=== PATIENT | female | born 1945 | race Caucasian/White ===

== ENCOUNTER → 2024-03-12 14:59 | Outpatient (REF) | payer OTHER, SELFPAY | LOC: RAD 14:59 | PROVIDERS: ATTENDING PHYSICIAN Surgery Vascular Surgery | DX: I65.23 Occlusion and stenosis of bilateral carotid arteries (principal) | CPT/HCPCS: 93880 ==

== ENCOUNTER 2024-08-18 13:51 | Inpatient (IN) | payer OTHER, SELFPAY ==
[2024-08-18] VITALS (9 sets, daily range): BP systolic 118–152; BP diastolic 44–114; BMI 20.2; BMI 19.8
[2024-08-18 11:52] LABS: % Basophils 0.3 % (0-2); % Eosinophils 3.7 % (0-6); % Immature Granulocytes 0.4 % (0-0.5); % Lymphocytes 7.4 % (20.5-51.1); % Monocytes 6.4 % (1.7-9.3); % Neutrophils 81.8 % (42.2-75.2); Absolute Eosinophils 0.3 10^3/uL (0-0.7); Absolute Lymphocytes 0.5 10^3/uL (1.2-3.4); Absolute Monocytes 0.5 10^3/uL (0.1-0.6); Absolute Neutrophils 5.8 10^3/uL (1.4-6.5); Hematocrit 35.5 % (37.0-47.0); Hemoglobin 11.5 g/dL (12.0-16.0); Mean Corp Hgb Conc. 32.4 g/dL (33.0-37.0); Mean Corpuscular Hgb 31.7 pg (27.0-31.0); Mean Corpuscular Volume 97.8 fL (81.0-99.0); Nucleated Red Blood Cells % 0 %; Red Blood Cell Count 3.63 10^6/uL (4.20-5.40); White Blood Cell Count 7.1 10^3/uL (4.8-10.8)
[2024-08-18 11:56] LABS: Lactic Acid 0.8 mmol/L (0.7-2.0)
[2024-08-18 12:00] LABS: ALT (SGPT) 20 U/L (0-35); AST (SGOT) 29 U/L (14-36); Albumin 3.6 g/dl (3.5-5.0); Alkaline Phosphatase 52 U/L (38-126); Blood Urea Nitrogen 24 mg/dl (7-17); Calcium 8.4 mg/dl (8.4-10.2); Carbon Dioxide 37 mmol/L (22-30); Chloride 95 mmol/L (98-107); Estimated Creatinine Clearance 49 ml/min; Glucose 112 mg/dl (70-99); Potassium 4.7 mmol/L (3.5-5.1); Sodium 137 mmol/L (135-145); Total Bilirubin 0.5 mg/dl (0.2-1.3); Total Protein 6.2 g/dl (6.3-8.2); eGFR > 60.00
[2024-08-18 12:07] LABS: Platelet Count 59 10^3/uL (130-400)
[2024-08-18 12:28] LABS: COVID-19 Antigen Negative (Negative)
--- NOTE | 2024-08-18 12:53 | ED.GENMED ---
History of Present Illness
General
Chief Complaint: Breathing Problem
Source: patient and family
Exam Limitations: none
Time Seen by Provider: 08/18/24 11:19
History of Present Illness
History of Present Illness:
78-year-old female started with not feeling well for the last 2 to 3 days. Sore throat myalgias some new cough. Increased shortness of breath. Fatigue and weakness.
Past History
Past History
ED Past Medical History: CHF, COPD, Valvular disease (Aortic stenosis), Hypothyroidism and Other (Psoriasis)
ED Past Surgical History: Gynecological (Tubal ligation)
Social History
Tobacco: Former smoker
Alcohol: None
Drug: None
Personal:
Living: with family
Phy Exam
Physical Exam
Physical Exam:
GENERAL: Alert and oriented. Generally very weak appearing
EYE: Orbits normal.
NECK: Supple, no significant adenopathy.
ENT: Pharynx with diffuse erythema
CARDIAC: Regular rate and rhythm without any obvious murmurs.
LUNGS: Oxygen in place. Mild tachypnea. Decreased breath sounds diffusely with dry bibasilar rales
ABDOMEN: Soft, without focal tenderness or distention
NEUROLOGICAL: Alert and oriented , grossly non-focal
SKIN: Warm and dry, no rash or lesion, no discoloration, skin intact.
MUSCULOSKELETAL: No edema,no deformity.Good color
PSYCH: Normal and appropriate interaction.
Scores
Heart Failure Risk
Heart Failure Risk Score: Not Applicable
Sepsis
Sepsis Screening
Sepsis Assessment: Sepsis Ruled Out
Sepsis Screen
Sepsis Screen: Sepsis Ruled Out
Date: 08/18/24
Time: 14:15
Course
Orders/Labs/Results
Orders:
Orders
08/18/24 11:18
EKG [Electrocardiogram (*1)] Urgent
Reason for Study: Fatigue / Weakness
EKG- Treatment ONCE
08/18/24 11:25
Complete Blood Count/With Diff Urgent
Comprehensive Metabolic Panel Urgent
Lactic Acid Q4H
Comment: ON ICE, CANCEL 2ND ORDER IF FIRST LACTIC ACID LEVEL <2
08/18/24 11:30
COVID-19 Antigen Urgent
Source: Nasal Swab
INF RAPID [Influenza A+B Rapid Molecular] Urgent
CHENG Source: Nasal Swab
Specimen Description:
Date Specimen was Collected: 08/18/24
Time Specimen was Collected: 11:29
08/18/24 12:17
0.9% Sodium Chloride 500 ml [Nss] 500 ml IV BOLUS
Acetaminophen 1000MG/100Ml [Ofirmev] 1,000 mg in 100 ml IV ONCE
Acetaminophen IV Indication:: ED Narcotic Naive Pt-ONCE
Dexamethasone Sod Phosphate [Decadron] 8 mg IV NOW STA
Ipratropium/Albuterol Sulfate [Duoneb] 3 ml INH R NOW STA
08/18/24 12:19
CXR Port [CR Chest Portable - 1 View] Urgent
Comment:
Reason For Exam: Short of breath/fever
Reason Study Needs to be Portable: Patient Unstable
08/18/24 12:50
Cefepime HCl [Maxipime] 2,000 mg IV NOW STA
08/18/24 13:25
Admit/Transfer Patient As Directed
Co-Sign Provider:
Level of Care: Inpatient admission
Assign to:: Telemetry
Physician / Group: Nithin
Diagnosis: Sepsis, Pneumonia
Reason for Telemetry: Arrhythmia
Date to Stop Telemetry: 08/21/24
Time to Stop Telemetry: 11:00
Reason for Hospitalization: Sepsis, Pneumonia
Expected length of stay greater than two midnights?: Yes
ELOS- Estimated Length of Stay in days: 4
I certify the patient meets the requirements for IP care: Yes
08/18/24 13:26
Blood Culture Routine
CHENG Source: Blood/Venous
Specimen Description:
Blood Culture Urgent
CHENG Source: Blood/Venous
Specimen Description:
08/18/24 13:27
PRN Pain Medication Management As Directed
May give lesser potent ordered pain med per pt: Yes
preference::
Protocol:: Medication orders for pain may be administered in a
manner that supports deferring to patient preference
when the pt is:
- Requesting an ordered lesser potent pain medication.
Least to most potent pain medications are defined
as: acetaminophen < NSAID < tramadol < opioids
(morphine, oxycodone, hydromorphone).
- Requesting a lesser dose of the same medication IF
ORDERED.
- Requesting a less intrusive route of administration
if both routes are prescribed by the provider (PO <
IV).
08/18/24 13:28
Code Status As Directed
Resuscitation Status: Full Code
08/18/24 13:32
Rapid Strep Group A Urgent
CHENG Source: Throat/Pharynx
Specimen Description:
08/21/24 11:00
DC Protocol for Telemetry ONCE
Abnormal Lab Results
08/18/24
11:25
RBC 3.63 L 10^6/uL
(4.20-5.40)
Hgb 11.5 L g/dL
(12.0-16.0)
Hct 35.5 L %
(37.0-47.0)
MCH 31.7 H pg
(27.0-31.0)
MCHC 32.4 L g/dL
(33.0-37.0)
Plt Count 59 L 10^3/uL
(130-400)
MPV 11.0 H fL
(7.4-10.4)
Absolute Lymphs (auto) 0.5 L 10^3/uL
(1.2-3.4)
Neutrophils % 81.8 H %
(42.2-75.2)
Lymphocytes % 7.4 L %
(20.5-51.1)
Chloride 95 L mmol/L
(98-107)
Carbon Dioxide 37 H mmol/L
(22-30)
BUN 24 H mg/dl
(7-17)
Glucose 112 H mg/dl
(70-99)
Total Protein 6.2 L g/dl
(6.3-8.2)
08/18/24 11:25
08/18/24 11:25
Vital Signs
Initial and Last Documented VS:
Initial Vital Signs
Temp Pulse Resp BP Pulse Ox
102 F H 103 15 135/52 95
08/18/24 11:13 08/18/24 11:13 08/18/24 11:13 08/18/24 11:13 08/18/24 11:13
Last Documented Vital Signs
Temp Pulse Resp BP Pulse Ox
102 F H 106 17 145/59 97
08/18/24 11:13 08/18/24 13:00 08/18/24 13:00 08/18/24 13:00 08/18/24 12:08
MDM/Problems Addressed
Differential Diagnosis Includes:
Increase shortness of breath fatigue weakness sore throat. Differential includes COVID influenza pneumonia strep infection. COPD exacerbation. Workup in progress
*Radiology
Radiology exam reviewed: radiology read reviewed (Questionable right lower lobe infiltrate)
*Pulse Oximetry
Patient hypoxic: no
*Critical Care Note
Total Time (30-74mins, 75-104mins- exclusive of procedures): Not Applicable
Data Reviewed
Review of Other/Old Records Reveals: Labs, Records, Radiology Studies and Testing
Update Note
Update Note:
COPD exacerbation/questionable pneumonia. Admission for further care
ED Attending Note
-
Portions of this chart may have been created with voice recognition software.� Occasional wrong word or��sound alike� substitutions may have occurred due to the inherent limitations of voice recognition software.
Discharge Plan
Departure
Patient Disposition: Admit
Date of Disposition: 08/18/24
Time of Disposition: 14:14
Presentation/result/management discussed w/ accepting MD/DO: Hospitalist
Discharge Problem:
Pneumonia/COPD exacerbation
Interventions
Interventions:
*Risk Screen - Suicide Last Done: 08/18/24 11:19
*General Assessment Last Done: 08/18/24 11:19
ED- Fall Risk Assessment Last Done: 08/18/24 11:21
*ED COVID-19 Vaccine History Last Done: 08/18/24 11:17
ED- Cardiac Assessment Last Done: 08/18/24 11:21
ED- Pulmonary Assessment Last Done: 08/18/24 12:08
[2024-08-18] MEDS: DUONEB 3 ML INH ×3 (13:00→19:22)
[2024-08-18] MEDS: MAXIPIME 2000 MG IV (13:00)
[2024-08-18] MEDS: OFIRMEV 100 IV (13:06)
[2024-08-18] MEDS: DECADRON 8 MG IV (13:06)
[2024-08-18] MEDS: NSS 500 IV (13:13)
--- NOTE | 2024-08-18 13:42 | HPS.HSE ---
Family Physician
-
Family Physician: Marta West
Chief Complaint
-
Sore throat, headache
History of Present Illness
Patient is a 78y F with PMH significant for COPD and aortic stenosis s/p TAVR who presents to ED complaining of feeling lousy for the past 2-3 days. Patient complains primarily of headache and sore throat. Mild, non-productive cough. No
significant dyspnea. No chills. Pos N/V starting last PM. No diarrhea. No abdominal pain. No urinary complaints.
No known sick contacts.
Medical History
Past Medical History
Past Medical History: Reports Other
Additional Past Medical History:
COPD
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
Hypothyroidism
Hypertension
Aortic Stenosis
Anxiety / Depression
ASCVD (Carotid stenosis, PAD)
Past Surgical History: Reports Other
Additional Past Surgical History:
TAVR
Right WALDEMAR
Tubal Ligation
Social History
Tobacco: Former Smoker (Quit smoking 20-30 years ago. Approx 20 pack years total use.)
Alcohol: None
Drug: None
Family History
Family History: Not pertinent
Allergies / Home Medications
Allergies reflects when Allergies were last updated in [facility].
Home Medications with original date entered in [facility]
Allergy/Medication List:
Allergies
Allergy/AdvReac Type Severity Reaction Status Date / Time
No Known Allergies Allergy Verified 11/10/22 19:24
Home Medications
levothyroxine 50 mcg tablet 50 mcg PO TUTHSA Thyroid 05/28/15
levothyroxine 75 mcg tablet 75 mcg PO SUMOWEFR Thyroid 05/28/15
alendronate 70 mg tablet 70 mg PO ALEXANDER OSTEOPOROSIS 10/29/20
aspirin 81 mg tablet,delayed release 81 mg PO DAILY Blood clot prevention/tx 11/16/21
diltiazem HCl 180 mg capsule,extended release 24 hr 180 mg PO DAILY Blood pressure 11/16/21
multivitamin with folic acid 400 mcg tablet (Tab-A-Lizeth) 1 tab PO DAILY Supplement 11/16/21
albuterol sulfate 2.5 mg/3 mL (0.083 %) solution for nebulization 2.5 mg (3 mL) inhalation R Q4HPRN PRN sob ##3 04/28/22
furosemide 20 mg tablet 20 mg PO DAILY #30 tabs 04/28/22
atorvastatin 40 mg tablet 40 mg PO DAILY 08/18/24
budesonide-formoterol HFA 160 mcg-4.5 mcg/actuation aerosol inhaler (Symbicort) 2 puff inhalation R BID 08/18/24
clopidogrel 75 mg tablet 75 mg PO DAILY 08/18/24
escitalopram oxalate 20 mg tablet 20 mg PO DAILY 08/18/24
tiotropium bromide 2.5 mcg/actuation mist for inhalation (Spiriva Respimat) 2 inh inhalation R DAILY 08/18/24
Review of Systems
-
History Source: Patient and Family
A 12 point ROS was completed and negative except as noted: Yes
Constitutional: Reports Fatigue; Denies Fever or Chills
EENT: Reports Sore Throat
Respiratory: Reports Cough; Denies Trouble Breathing
Cardiac: Denies Chest Pain, Diaphoresis or Palpitations
Abdomen/GI: Reports Nausea and Vomiting; Denies Abdominal Pain or Diarrhea
: Denies Dysuria, Frequency or Flank Pain
Musculoskeletal: Denies Joint Pain or Edema
Neurological: Reports Headache; Denies Dizzy
Psych: Denies Depression or Anxiety
Physical Exam
Vital Signs
Vital Signs
Temp Pulse Resp BP Pulse Ox
102 F H 106 17 145/59 97
08/18/24 11:13 08/18/24 13:00 08/18/24 13:00 08/18/24 13:00 08/18/24 12:08
Physical Exam
General: Other (Ill-appearing 78y F in mild distress due to nausea and sore throat.)
HEENT: Other (Dry MM. Neck supple. Pos cervical adenopathy.)
Respiratory: Other (Decreased BS at bases - R > L. No wheezes or rhonchi.)
Cardiac: S1/S2 and Tachycardia; No Murmur
GI: Soft, Non Tender, Non Distended and Normal Bowel Sounds
Musculoskeletal: No Clubbing, No Cyanosis and No Edema
Neuro: AO x 3
Laboratory Results
-
08/18/24 11:25
08/18/24 11:25
Laboratory Results
Lactic Acid Cancelled 08/18/24 15:30
Total Bilirubin 0.5 mg/dl (0.2-1.3) 08/18/24 11:25
AST 29 U/L (14-36) 08/18/24 11:25
ALT 20 U/L (0-35) 08/18/24 11:25
Alkaline Phosphatase 52 U/L (38-126) 08/18/24 11:25
Impression/Plan
-
A/P: Patient is a 78y F with PMH significant fort COPD and hypertension who presents to ED complaining of 203 days of headache and sore throat.
RLL Pneumonia
Pharyngitis
Sepsis secondary to the above
- Admit for further evaluation and treatment
- Patient presents with fever and tachycardia due to acute infection / RLL pneumonia.
- Abx with ceftriaxone and doxycycline.
- Supportive care including IVFs, nebs, O2 support, etc.
- Follow for clinical improvement.
- COVID and flu negative in the ED. Check rapid strep given pharyngitis.
- Follow-up culture data.
COPD without Acute Exacerbation
Chronic Hypoxemic Respiratory Insufficiency
- No evidence of wheezing on my exam.
- Nebs ATC and PRN. Inhaled budesonide.
- Hold on further systemic steroids for now.
- Continue supplemental O2 - currently acceptable oxygenation on usual O2.
Benign Hypertension
- Stable. Continue current medications with holding parameters.
Aortic Stenosis s/p TAVR
ASCVD
- Stable. Continue current CV med regimen.
Hypothyroidism
- Stable. Continue T4 supplementation.
Anxiety / Depression
- Stable. Continue Lexapro.
DVT Prophylaxis: Lovenox
Code Status: Full
[2024-08-18] MEDS: NSS 1000 IV (17:09)
[2024-08-18] MEDS: TYLENOL 650 MG PO (17:11)
[2024-08-18] MEDS: TIGAN 200 MG IM (17:11)
--- NOTE | 2024-08-18 18:32 | PTCARENOTE ---
Arrived to unit and slid patient from stretcher to bed. After moving patient Vomited X1. Tigan given per orders. Oriented to room. Call bautista within reach.
[2024-08-18] MEDS: PULMICORT 0.5 MG INH (19:21)
[2024-08-18] MEDS: VIBRAMYCIN 100 MG PO (19:50)
[2024-08-18] MEDS: ROCEPHIN 1000 MG IV (19:50)
[2024-08-18] MEDS: STERILE WATER FOR INJECTION 10 ML IV (19:51)
[2024-08-19] VITALS (9 sets, daily range): BP systolic 111–143; BP diastolic 46–61; PULSE 95–99; O2SAT 100; BMI 19.9
[2024-08-19] MEDS: NSS 1000 IV ×2 (03:07→12:59)
[2024-08-19] MEDS: SYNTHROID 75 MCG PO (05:18)
[2024-08-19] MEDS: DUONEB 3 ML INH ×4 (06:27→19:30)
[2024-08-19] MEDS: PULMICORT 0.5 MG INH ×2 (06:27→19:30)
--- NOTE | 2024-08-19 06:36 | PTCARENOTE ---
Pt 12 beat run v tach- pt asymptomatic. Prior to pt accidentally removed o2 pox dropped to 60s- applied 6 L NC came up to 95%- decreased to 4 L NC. Respiratory notified for treatments. House SITE MANAGER aware.
[2024-08-19 08:29] LABS: Hemoglobin 10.7 g/dL (12.0-16.0); Mean Corp Hgb Conc. 32.4 g/dL (33.0-37.0); Mean Corpuscular Hgb 32.1 pg (27.0-31.0); Mean Corpuscular Volume 99.1 fL (81.0-99.0); Mean Platelet Volume 11.1 fL (7.4-10.4); Platelet Count 60 10^3/uL (130-400); Red Blood Cell Count 3.33 10^6/uL (4.20-5.40); Red Cell Dist. Width 13.3 % (11.5-14.5); White Blood Cell Count 9.4 10^3/uL (4.8-10.8)
[2024-08-19 08:52] LABS: Blood Urea Nitrogen 24 mg/dl (7-17); Calcium 7.4 mg/dl (8.4-10.2); Carbon Dioxide 30 mmol/L (22-30); Chloride 103 mmol/L (98-107); Estimated Creatinine Clearance 57 ml/min; Glucose 117 mg/dl (70-99); Potassium 4.8 mmol/L (3.5-5.1); Sodium 142 mmol/L (135-145); eGFR > 60.00
[2024-08-19] MEDS: CARDIZEM CD 180 MG PO (09:00)
[2024-08-19] MEDS: LEXAPRO 20 MG PO (09:01)
[2024-08-19] MEDS: PLAVIX 75 MG PO (09:01)
[2024-08-19] MEDS: ASPIR LOW (ENTERIC COATED) 81 MG PO (09:01)
[2024-08-19] MEDS: VIBRAMYCIN 100 MG PO ×2 (09:01→21:45)
[2024-08-19] MEDS: LIPITOR 40 MG PO (09:01)
[2024-08-19] MEDS: TYLENOL 650 MG PO (09:03)
--- NOTE | 2024-08-19 10:42 | W.PN.HOSP.TC ---
Today's Communication/Plan
-
see outlined plan
Assessment / Plan
Assessment / Plan
Assessment:
RLL Pneumonia
Pharyngitis
Sepsis secondary to the above
- Patient presents with fever and tachycardia due to acute infection / RLL pneumonia.
- Abx with ceftriaxone and doxycycline, day 2
- Supportive care including IVFs, nebs, O2 support, etc.
- Follow for clinical improvement.
- COVID and flu negative in the ED. rapid strep negative
- Follow-up culture data.
COPD without Acute Exacerbation
Chronic Hypoxemic Respiratory Insufficiency, on 2-3L NC
- No evidence of wheezing on my exam.
- Nebs ATC and PRN. Inhaled budesonide.
- Hold on further systemic steroids for now.
- Continue supplemental O2 - currently acceptable oxygenation on usual O2.
Benign Hypertension
- Stable. Continue current medications with holding parameters.
Aortic Stenosis s/p TAVR
ASCVD
- Stable. Continue current CV med regimen.
Hypothyroidism
- Stable. Continue T4 supplementation.
Anxiety / Depression
- Stable. Continue Lexapro.
DVT Prophylaxis: Lovenox
Code Status: Full
Anticipated Discharge: 24 - 48 hours
Subjective/Interval History
-
Date of Service: August 19, 2024
reports improving in breathing, feels tired
remains on 2L NC (baseline 3L NC)
Objective Data
-
Labs:
Laboratory Results
08/19/24
07:05
WBC 9.4
Hgb 10.7 L
Hct 33.0 L
Plt Count 60 L
Sodium 142
Potassium 4.8
Chloride 103
Carbon Dioxide 30
BUN 24 H
Creatinine 0.6
Glucose 117 H
Calcium 7.4 L
Vital Signs:
Vital Signs
Temp Pulse Resp BP Pulse Ox
98.2 F 106 16 112/50 98
08/19/24 07:20 08/19/24 09:00 08/19/24 07:20 08/19/24 09:00 08/19/24 07:20
I&O
08/18/24 08/19/24 08/20/24
06:59 06:59 06:59
Intake Total 1200 / 1200
Output Total 100 / 100
Balance 1100 / 1100
Physical Exam
-
General: No Apparent Distress
HEENT: Normocephalic and Atraumatic
Respiratory: Rhonchi (RLL) and Decreased Breath Sounds (RLL); Negative Wheezes
Cardiac: Regular Rhythm and S1/S2
GI: Soft
Neuro: AO x 3
Hematologic / Lymphatic: No Lymphadenopathy
Psych: Calm
Data Reviewed
-
Total Time Spent with Patient (in minutes): 42
Labs: Labs Reviewed by me
[2024-08-19] MEDS: ROCEPHIN 1000 MG IV (21:45)
[2024-08-19] MEDS: STERILE WATER FOR INJECTION 10 ML IV (21:46)
[2024-08-20] VITALS (8 sets, daily range): BP systolic 102–152; BP diastolic 42–76; PULSE 81–96; O2SAT 95; BMI 20.3
[2024-08-20] MEDS: SYNTHROID 75 MCG PO (05:05)
[2024-08-20] MEDS: PULMICORT 0.5 MG INH (07:54)
[2024-08-20] MEDS: DUONEB 3 ML INH ×3 (07:54→19:35)
[2024-08-20 08:25] LABS: Hematocrit 34.6 % (37.0-47.0); Hemoglobin 10.9 g/dL (12.0-16.0); Mean Corp Hgb Conc. 31.5 g/dL (33.0-37.0); Mean Corpuscular Volume 101.5 fL (81.0-99.0); Mean Platelet Volume 12.3 fL (7.4-10.4); Platelet Count 77 10^3/uL (130-400); Red Blood Cell Count 3.41 10^6/uL (4.20-5.40); Red Cell Dist. Width 13.5 % (11.5-14.5); White Blood Cell Count 10.7 10^3/uL (4.8-10.8)
[2024-08-20 08:54] LABS: Blood Urea Nitrogen 19 mg/dl (7-17); Calcium 7.9 mg/dl (8.4-10.2); Carbon Dioxide 33 mmol/L (22-30); Chloride 103 mmol/L (98-107); Estimated Creatinine Clearance 49 ml/min; Glucose 90 mg/dl (70-99); Potassium 4.7 mmol/L (3.5-5.1); Sodium 144 mmol/L (135-145); eGFR > 60.00
[2024-08-20] MEDS: CARDIZEM CD 180 MG PO (09:16)
[2024-08-20] MEDS: LEXAPRO 20 MG PO (09:17)
[2024-08-20] MEDS: ASPIR LOW (ENTERIC COATED) 81 MG PO (09:17)
[2024-08-20] MEDS: PLAVIX 75 MG PO (09:17)
[2024-08-20] MEDS: VIBRAMYCIN 100 MG PO ×2 (09:17→21:59)
[2024-08-20] MEDS: LIPITOR 40 MG PO (09:17)
[2024-08-20] MEDS: LASIX 40 MG IV (10:05)
[2024-08-20] MEDS: SOLU-MEDROL PF 40 MG IV ×2 (10:06→17:27)
[2024-08-20] MEDS: SYMBICORT 160/4.5 MCG INHALER 2 PUFF INH ×2 (12:00→19:35)
--- NOTE | 2024-08-20 12:47 | PTOTSP ---
Dysphagia Evaluation
Patient with risk factors for dysphagia (COPD) and is currently admitted with sepsis secondary to RLL PNA and pharyngitis with COPD exacerbation. Patient reported chronic dysphagia with pills and solids. Consider video swallow study to objectively
assess pharyngeal swallow and rule out aspiration.
Recommend:
1. Regular (pick soft/moist foods and cut well), Thin Liquids
2. Medications - crush large pills and mix in puree (applesauce, yogurt, pudding) if medically cleared
3. Strategies: upright to 90 degrees, small single sips/bites with breaks for breathing given COPD, moisten foods and cut foods into small pieces, chew well, oral care 3x daily
4. Consider video swallow study
[2024-08-20] MEDS: TYLENOL 650 MG PO (13:10)
--- NOTE | 2024-08-20 13:31 | PTCARENOTE ---
Patient with complaints this morning of difficulty breathing. Patient with expiratory wheezes throughout and mouth open with expiration. MD notified. Patient given IV lasix and additional dose of solumedrol. Respiratory therapy to do PEP and
symbacort added. Patient much better this afternoon and is back to baseline breathing status.
--- NOTE | 2024-08-20 13:56 | W.PN.HOSP.TC ---
Today's Communication/Plan
-
VSE
cont Abx
start steroids
Echo
Assessment / Plan
Assessment / Plan
78yo F with PMHx of COPD with chronic hypoxic respiratory failure on 3L home O2, osteoporosis, Hx of TAVR, HLD, HFpEF, hypothyroidism came with worsening SOB, found pneumonia
A/P:
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
#Paringitis
#Acute COPD exacerbation
#Moderate pulmonary HTN
# s/p TAVR
#Acute on chronic HFpEF exacerbation
GAS screen neg
Bcx neg
COVID-19, influenza PCR neg
COnt ROcephin/DOxy
Taper steroids
cont bronchodilators
Lasix IV, check ProBNP, Echo, daily weights and daily e;lectrolytes
Check DDimer with wells scope 0
#Chronic dysphagia
crush meds as possible
PUNCHBOARD ASSEMBLER consult
VSE ordered
#Thrombocytopenia
since admission, low T4 score, no concern for HIT
follow CBC, as it is most likely reactive
#Hypothyroidism
#anxiety d/o
cont home meds
DVT ppx SCDs 2/2 thrombocytopenia
Full code
I have spent at least 38min reviewing chart, test results, communication with consultants and direct patient care
Anticipated Discharge: > 48 hours
Subjective/Interval History
-
Date of Service: August 20, 2024
Objective Data
-
Labs:
Laboratory Results
08/20/24
08:00
WBC 10.7
Hgb 10.9 L
Hct 34.6 L
Plt Count 77 L D
Sodium 144
Potassium 4.7
Chloride 103
Carbon Dioxide 33 H
BUN 19 H
Creatinine 0.7
Glucose 90
Calcium 7.9 L
Vital Signs:
Vital Signs
Temp Pulse Resp BP Pulse Ox
98.6 F 78 16 148/56 95
08/20/24 11:40 08/20/24 12:07 08/20/24 12:07 08/20/24 11:40 08/20/24 13:29
I&O
08/19/24 08/20/24 08/21/24
06:59 06:59 06:59
Intake Total 1200 / 1200 240 / 240
Output Total 100 / 100
Balance 1100 / 1100 240 / 240
Review of Systems
-
History Source: Patient
All other systems: Reviewed and negative
Physical Exam
-
General: No Apparent Distress
HEENT: Normocephalic
Respiratory: Wheezes and Rales
Cardiac: Regular Rhythm
GI: Soft, Nontender and Nondistended
Genito-urinary: No Costovertebral Tender
Musculoskeletal: No Clubbing, No Cyanosis, Edema, Right Lower Extrem and Edema, Left Lower Extrem
Skin: Warm
Neuro: Awake, Alert, Oriented, AO x 3 and No Motor Deficits
Psych: Calm
[2024-08-20 14:24] LABS: D-Dimer 0.87 ug/mlFEU (0.00-0.50)
[2024-08-20 14:31] LABS: NT-proBNP 9070 pg/ml
[2024-08-20] MEDS: DUONEB INH (16:04)
[2024-08-20] MEDS: ROCEPHIN 1000 MG IV (21:58)
[2024-08-20] MEDS: STERILE WATER FOR INJECTION 10 ML IV (21:58)
[2024-08-21] VITALS (8 sets, daily range): BP systolic 102–166; BP diastolic 42–76; PULSE 81–104; O2SAT 93; BMI 20.4
[2024-08-21] MEDS: SOLU-MEDROL PF 40 MG IV ×3 (02:09→17:28)
[2024-08-21] MEDS: SYNTHROID 75 MCG PO (05:32)
[2024-08-21] MEDS: DUONEB 3 ML INH ×3 (08:07→19:16)
[2024-08-21] MEDS: SYMBICORT 160/4.5 MCG INHALER 2 PUFF INH ×2 (08:07→19:16)
[2024-08-21 08:20] LABS: % Basophils 0.2 % (0-2); % Immature Granulocytes 0.3 % (0-0.5); % Monocytes 3.9 % (1.7-9.3); % Neutrophils 85.6 % (42.2-75.2); Absolute Lymphocytes 0.6 10^3/uL (1.2-3.4); Absolute Monocytes 0.2 10^3/uL (0.1-0.6); Absolute Neutrophils 5.3 10^3/uL (1.4-6.5); Hematocrit 34.9 % (37.0-47.0); Hemoglobin 11.1 g/dL (12.0-16.0); Mean Corp Hgb Conc. 31.8 g/dL (33.0-37.0); Mean Corpuscular Hgb 31.5 pg (27.0-31.0); Mean Corpuscular Volume 99.1 fL (81.0-99.0); Mean Platelet Volume 11.1 fL (7.4-10.4); Nucleated Red Blood Cells % 0 %; Platelet Count 90 10^3/uL (130-400); Red Blood Cell Count 3.52 10^6/uL (4.20-5.40); Red Cell Dist. Width 13.5 % (11.5-14.5); White Blood Cell Count 6.2 10^3/uL (4.8-10.8)
[2024-08-21 09:03] LABS: ALT (SGPT) 24 U/L (0-35); AST (SGOT) 32 U/L (14-36); Albumin 3.5 g/dl (3.5-5.0); Alkaline Phosphatase 43 U/L (38-126); Blood Urea Nitrogen 22 mg/dl (7-17); Calcium 8.5 mg/dl (8.4-10.2); Carbon Dioxide 35 mmol/L (22-30); Chloride 100 mmol/L (98-107); Estimated Creatinine Clearance 49 ml/min; Glucose 124 mg/dl (70-99); Potassium 4.5 mmol/L (3.5-5.1); Sodium 144 mmol/L (135-145); Total Bilirubin 0.3 mg/dl (0.2-1.3); Total Protein 6.2 g/dl (6.3-8.2); eGFR > 60.00
[2024-08-21] MEDS: CARDIZEM CD 180 MG PO (09:13)
[2024-08-21] MEDS: VIBRAMYCIN 100 MG PO ×2 (09:13→19:40)
[2024-08-21] MEDS: ASPIR LOW (ENTERIC COATED) 81 MG PO (09:13)
[2024-08-21] MEDS: LASIX 20 MG PO (09:14)
[2024-08-21] MEDS: LEXAPRO 20 MG PO (09:14)
[2024-08-21] MEDS: LIPITOR 40 MG PO (09:14)
[2024-08-21] MEDS: PLAVIX 75 MG PO (09:14)
[2024-08-21] MEDS: DUONEB INH (12:32)
--- NOTE | 2024-08-21 12:58 | W.PN.HOSP.TC ---
Today's Communication/Plan
-
Echo pending
cont IV diuresis
Pulm consult
cont ABx and steroids
Assessment / Plan
Assessment / Plan
78yo F with PMHx of COPD with chronic hypoxic respiratory failure on 3L home O2, osteoporosis, Hx of TAVR, HLD, HFpEF, hypothyroidism came with worsening SOB, found pneumonia
A/P:
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
#Paringitis
#Acute COPD exacerbation
#Moderate pulmonary HTN
# s/p TAVR
#Acute on chronic HFpEF exacerbation
GAS screen neg
Bcx neg
COVID-19, influenza PCR neg
COnt ROcephin/DOxy
Taper steroids
Pulm consult
cont bronchodilators
Lasix IV, check ProBNP, Echo, daily weights and daily e;lectrolytes
CT chest neg for PE, however Right lower lobe consolidation and small parenchymal opacity in the central right lower lobe which could also represent pneumonia, cannot exclude small mass. Recommend short-term follow-up Chest CT to confirm resolution.
Stable 4 mm left lower lobe pulmonary nodule.
#Elevated ddimer
CT neg for PE
LE US pending
#ANTHONY
cont nocturnal cpap
#Chronic dysphagia with silent aspiration
crush meds as possible
HORSER UP consult
VSE showed silent aspiration of the liquids via straw - recommended regular with thin by cup with small sips and meds in puree
#Thrombocytopenia
since admission, low T4 score, no concern for HIT
follow CBC, as it is most likely reactive
#Hypothyroidism
#anxiety d/o
cont home meds
DVT ppx SCDs 2/2 thrombocytopenia
Full code
I have spent at least 38min reviewing chart, test results, communication with consultants and direct patient care
Anticipated Discharge: 24 - 48 hours
Subjective/Interval History
-
Date of Service: August 21, 2024
Objective Data
-
Labs:
Laboratory Results
08/21/24
08:00
WBC 6.2
Hgb 11.1 L
Hct 34.9 L
Plt Count 90 L
Sodium 144
Potassium 4.5
Chloride 100
Carbon Dioxide 35 H
BUN 22 H
Creatinine 0.7
Glucose 124 H
Calcium 8.5
Total Bilirubin 0.3
AST 32
ALT 24
Alkaline Phosphatase 43
Vital Signs:
Vital Signs
Temp Pulse Resp BP Pulse Ox
97.8 F 71 18 140/62 96
08/21/24 06:50 08/21/24 08:11 08/21/24 08:11 08/21/24 06:50 08/21/24 08:11
I&O
08/20/24 08/21/24 08/22/24
06:59 06:59 06:59
Intake Total 240 / 240 920 / 920
Balance 240 / 240 920 / 920
Review of Systems
-
History Source: Patient
All other systems: Reviewed and negative
Physical Exam
-
General: Well Nourished and No Apparent Distress
HEENT: Normocephalic and Atraumatic
Respiratory: Wheezes; Negative Rales or Rhonchi
Cardiac: Regular Rhythm
GI: Soft, Nontender and Nondistended
Genito-urinary: No Costovertebral Tender
Musculoskeletal: No Clubbing, No Cyanosis, Edema, Right Lower Extrem and Edema, Left Lower Extrem
Neuro: Awake, Alert, Oriented and AO x 3
Psych: Calm
--- NOTE | 2024-08-21 14:37 | PTOTSP ---
Video Swallow Study
Summary: Patient presents with mild oral/ pharyngeal dysphagia with silent aspiration of thin liquids via consecutive straw sips. Esophageal sweep concerning for esophageal dysphagia. Please see patient care note for full details of
penetration/aspiration and swallowing physiology.
Recommend:
1. Regular, Thin Liquids
2. Medications - whole and/or crushed in puree
3. Strategies: upright to 90 degrees, small single sips/bites, avoid straw, pick soft/moist foods, remain upright for 30 minutes after PO intake as a reflux precaution
4. Oral care 3x daily
5. Dysphagia tx for education and instruction in compensations.
6. Consider GI consult if esophageal dysphagia symptoms noted.
--- NOTE | 2024-08-21 15:14 | W.PN.UPDATE ---
Update Note
Progress Note Update
#Carotid stenosis
#Descending thoracic aortic stent
followed by as outpatient, monitoring
#Chronic headaches with pontine calcification on CT in 2020
Recommended MRI of the brain at that time - same recommended now to daughter - she verbalized understanding and will follow with PCP
#Small R pleural effusion
Pulm eval, will attempt diuresis, might need thoracentesis - defer to pulm
[2024-08-21] MEDS: LASIX 40 MG IV (15:21)
--- NOTE | 2024-08-21 15:54 | CON.PUL ---
Consultation
Consultation Request
Date/Time Consultation Requested: 08/21/2024
Date/Time Consultation Performed: 08/21/2024
Requesting Provider: Dr. Colvin
Performing Provider: Dr. Prem Ferrara
Reason for Consultation: Acute respiratory failure/pneumonia/acute exacerbation COPD
Medical History
-
History of Present Illness:
78-year-old woman who is known to our office for history of advanced COPD, chronic hypoxemic and hypercapnic respiratory failure, prior history of right lower lobe pneumonia with parapneumonic effusion, readmitted on 08/18/2024 complaining of feeling
tired for the last 2 or 3 days. Headache, sore throat. Mild nonproductive cough without hemoptysis. No recent travel sick contacts.
Found to have right lower lobe pneumonia.
Also found to be in exacerbation of COPD treated with nebulizers, steroids.
Found to have a pleural effusion were consulted for management and evaluation of multiple pulmonary issues.
Past Medical History
Past Medical History: Other (See assessment and plan section)
Social History
Tobacco: Former Smoker (Quit smoking longer than 20 years ago. 54-cfut-[id number] history.)
Alcohol: None
Drug: None
Family History
Family History: Reviewed & Not Pertinent
Allergies / Home Medications
Allergies
Allergy/AdvReac Type Severity Reaction Status Date / Time
No Known Allergies Allergy Verified 11/10/22 19:24
Home Medications
�Medication �Instructions �Recorded �Confirmed �Last Taken �Type
levothyroxine 50 mcg tablet 50 mcg PO TUTHSA Thyroid 05/28/15 08/18/24 08/16/24 History
levothyroxine 75 mcg tablet 75 mcg PO SUMOWEFR Thyroid 05/28/15 08/18/24 08/17/24 History
alendronate 70 mg tablet 70 mg PO ALEXANDER OSTEOPOROSIS 10/29/20 08/18/24 08/12/24 History
aspirin 81 mg tablet,delayed 81 mg PO DAILY Blood clot 11/16/21 08/18/24 08/17/24 History
release prevention/tx
diltiazem HCl 180 mg 180 mg PO DAILY Blood pressure 11/16/21 08/18/24 08/17/24 History
capsule,extended release 24 hr
multivitamin with folic acid 400 1 tab PO DAILY Supplement 11/16/21 08/18/24 08/17/24 History
mcg tablet (Tab-A-Lizeth)
albuterol sulfate 2.5 mg/3 mL 2.5 mg (3 mL) inhalation R Q4HPRN 04/28/22 08/18/24 Unknown Rx
(0.083 %) solution for nebulization PRN sob ##3
furosemide 20 mg tablet 20 mg PO DAILY #30 tabs 04/28/22 08/18/24 08/17/24 Rx
atorvastatin 40 mg tablet 40 mg PO DAILY High Cholesterol 08/18/24 08/18/24 08/17/24 History
budesonide-formoterol HFA 160 2 puff inhalation R BID copd 08/18/24 08/18/24 08/17/24 History
mcg-4.5 mcg/actuation aerosol
inhaler (Symbicort)
clopidogrel 75 mg tablet 75 mg PO DAILY Heart 08/18/24 08/18/24 08/17/24 History
Disease/Condition
escitalopram oxalate 20 mg tablet 20 mg PO DAILY Mental 08/18/24 08/18/24 08/17/24 History
Health/Anxiety
tiotropium bromide 2.5 2 inh inhalation R DAILY COPD 08/18/24 08/18/24 08/17/24 History
mcg/actuation mist for inhalation
(Spiriva Respimat)
Review of Systems
-
History Source: Patient
All other systems: Negative unless noted
Vitals / Labs / Diagnostic Testing
Vital Signs
Temp Pulse Resp BP Pulse Ox
98.4 F 74 18 133/49 96
08/21/24 13:54 08/21/24 15:07 08/21/24 15:07 08/21/24 13:54 08/21/24 15:07
Lab Data
08/21/24 08:00
08/21/24 08:00
Microbiology
08/18/24 13:26 Blood/Venous Blood Culture - Preliminary
No Growth in 72 hours- Final report to follow
08/18/24 13:26 Blood/Venous Blood Culture - Preliminary
No Growth in 72 hours- Final report to follow
08/18/24 15:16 Throat/Pharynx Streptococcus Screen (CHENG) - Final
No Beta Hemolytic Streptococci Isolated
08/18/24 15:16 Throat/Pharynx Streptococcus Rapid Screen - Final
Rapid Strep Screen (Group A) Negative
08/18/24 11:30 Nasal Swab Influenza Types A & B (APOLINAR) - Final
Negative for Influenza A & B, NAAT
Negative results must be combined with clinical observations
and patient history.
Nucleic Acid Amplification test (NAAT)performed on the
[employer] platform.
Diagnostic Testing:
Physical Exam
-
HEENT: Normocephalic
Cardiovascular: S1/S2 and Murmur
Respiratory: Wheeze (Minimal expiratory) and Rales (Bibasilar)
GI: Soft and Non Distended
Neurology: Awake, Alert, Oriented and No Motor Deficits
Skin: Warm
General: Comfortable
Assessment
-
Acute respiratory insufficiency-hypoxemic currently on 4 L nasal cannula
Chronic hypoxemic respiratory failure on 3 L nasal cannula
Right lower lobe pneumonia:
CT chest 08/20/2024: No evidence for central pulmonary embolism. Right lower lobe consolidation with a small right pleural effusion. Small parenchymal opacity on the right lower lobe. Moderate centrilobular emphysema. Stable 4 mm left lower lobe
pulmonary nodule
Small right pleural effusion-likely parapneumonic
Acute exacerbation of COPD
Possible heart failure acute on chronic proBNP 9000
Echocardiogram from 2021: Showed mild LVH with hypokinesis in the anterior wall and low normal systolic function. Normal right ventricular size and function.
Aortic valve seated in the right position. Mild to moderate TR. Moderate pulmonary hypertension
EKG 08/18/2024: Reviewed sinus tachycardia. PVCs. LVH. Septal infarct age undetermined. Left bundle branch block
Conditions present prior to admission:
Admitted with right lower lobe pneumonia 08/10/2022-Streptococcus bacteremia. Respiratory failure requiring intubation.
Right parapneumonic effusion
COPD, severe centrilobular emphysema
On home Trilogy ventilator
On Symbicort/Spiriva
3 L supplemental oxygen
Last time seen in our office Dr. Vale was on 06/2023
Chronic hypercapnic respiratory failure: Baseline serum bicarbonate 60
History of right lower lobe pneumonia resolved in the past
4 mm lung nodule within the left lower lobe, unchanged compared to prior CT dated 04/24/2022 and also unchanged compared to prior CT dated 08/22/2020, therefore likely benign.
Spontaneous right pneumothorax requiring hospitalization 2019
TAVR, March 2021
Peripheral vascular disease-history of carotid stenosis. Descending thoracic aortic stent follows with Dr. Vanessa.
CHF with preserved ejection fraction
Hypertension
Osteoporosis
Depression
Hypothyroidism
Plan recommendations:
Recurrent right lower lobe pneumonia based on clinical picture
Continue with antibiotics
Speech evaluation noted with aspiration with thin liquids. Continue with diet modifications.
Patient has poor dentition, she states that she has some implants to be placed at some point. Having difficulty chewing the food.
-
Follow cultures
So far COVID-negative, influenza negative and pneumococcal negative.
-
Pleural effusion too small for thoracentesis
Will repeat chest x-ray 48 hours or if discharged in the short-term outpatient setting.
Patient will need repeat CT chest in about 6 to 8 weeks to document improvement/resolution of right lower lobe masslike opacity. I have discussed this with patient and she is aware.
She has an appointment in November but likely will need an appointment before that.
-
Continue diuretics
Repeat echocardiogram pending echocardiogram, last echocardiogram available from 2021
-
In regards to COPD:
Continue nebulizer therapy with DuoNebs 4 times per day
Solu-Medrol IV, start tapering tomorrow. Possible transition to prednisone.
Okay to hold inhalers while on nebulizers
Will need outpatient follow-up
Continue ox supplementation, close to baseline
Continue on nocturnal ventilator, patient has her own machine
-
DVT prophylaxis with Lovenox
Lower extremity Dopplers 08/21/2024: No evidence for DVT.
Continue physical therapy/Occupational Therapy. Patient states that she is feeling better.
-
[facility] records reviewed, last time seen in our office was June 2023.
Has severe COPD with chronic hypercapnic and hypoxemic respiratory failure.
Will need to follow-up in about 2 to 3 weeks after discharge from
[2024-08-21] MEDS: LOVENOX 30 MG SC (17:28)
[2024-08-21] MEDS: ROCEPHIN 1000 MG IV (19:40)
[2024-08-21] MEDS: STERILE WATER FOR INJECTION 10 ML IV (19:40)
[2024-08-21 22:51] LABS: Hematocrit 31.9 % (37.0-47.0); Hemoglobin 10.3 g/dL (12.0-16.0); Mean Corp Hgb Conc. 32.3 g/dL (33.0-37.0); Mean Corpuscular Hgb 32.9 pg (27.0-31.0); Mean Corpuscular Volume 101.9 fL (81.0-99.0); Mean Platelet Volume 11.3 fL (7.4-10.4); Platelet Count 93 10^3/uL (130-400); Red Blood Cell Count 3.13 10^6/uL (4.20-5.40); Red Cell Dist. Width 13.3 % (11.5-14.5); White Blood Cell Count 7.3 10^3/uL (4.8-10.8)
[2024-08-21 23:06] LABS: Blood Urea Nitrogen 28 mg/dl (7-17); Calcium 8.6 mg/dl (8.4-10.2); Carbon Dioxide 35 mmol/L (22-30); Chloride 97 mmol/L (98-107); Estimated Creatinine Clearance 43 ml/min; Glucose 145 mg/dl (70-99); Magnesium 1.9 mg/dl (1.6-2.3); Potassium 4.7 mmol/L (3.5-5.1); Sodium 140 mmol/L (135-145); eGFR > 60.00
[2024-08-22] VITALS (9 sets, daily range): BP systolic 93–151; BP diastolic 42–80; PULSE 77–101; O2SAT 95
--- NOTE | 2024-08-22 02:16 | W.PN.UPDATE ---
Update Note
Progress Note Update
RN notified patient had 9, 14 beats of V-tach on the monitor, patient asymptomatic, stable VS, labs ordered, wnl. labs in AM.
[2024-08-22] MEDS: SOLU-MEDROL PF 40 MG IV ×3 (02:43→18:10)
--- NOTE | 2024-08-22 06:13 | PTCARENOTE ---
Patient had several runs of vtach overnight, in during which she was asymptomatic and then converted back into NSR/ST. Provider notified, stat labs drawn per provider order and found to be unremarkable. VSS at this time. Pt. is also refusing her
daily weight this morning and stating that she 'does not want to get OOB because her CPAP is on.' Will f/u with oncoming shift regarding attempting to obtain pt.'s daily weight at a later time this AM. Plan of care ongoing; pt. resting comfortably
at this time.
[2024-08-22] MEDS: DUONEB 3 ML INH ×4 (07:38→19:59)
[2024-08-22] MEDS: SYMBICORT 160/4.5 MCG INHALER 2 PUFF INH ×2 (07:38→19:59)
[2024-08-22] MEDS: PLAVIX 75 MG PO (09:01)
[2024-08-22] MEDS: VIBRAMYCIN 100 MG PO ×2 (09:02→19:37)
[2024-08-22] MEDS: LEXAPRO 20 MG PO (09:02)
[2024-08-22] MEDS: CARDIZEM CD 180 MG PO (09:02)
[2024-08-22] MEDS: ASPIR LOW (ENTERIC COATED) 81 MG PO (09:03)
[2024-08-22] MEDS: LIPITOR 40 MG PO (09:03)
[2024-08-22 09:17] LABS: Hematocrit 33.3 % (37.0-47.0); Hemoglobin 10.7 g/dL (12.0-16.0); Mean Corp Hgb Conc. 32.1 g/dL (33.0-37.0); Mean Corpuscular Hgb 31.8 pg (27.0-31.0); Mean Corpuscular Volume 99.1 fL (81.0-99.0); Mean Platelet Volume 12.2 fL (7.4-10.4); Platelet Count 104 10^3/uL (130-400); Red Blood Cell Count 3.36 10^6/uL (4.20-5.40); Red Cell Dist. Width 13.3 % (11.5-14.5); White Blood Cell Count 6.1 10^3/uL (4.8-10.8)
[2024-08-22 10:44] LABS: Blood Urea Nitrogen 26 mg/dl (7-17); Calcium 8.4 mg/dl (8.4-10.2); Carbon Dioxide 39 mmol/L (22-30); Chloride 97 mmol/L (98-107); Estimated Creatinine Clearance 49 ml/min; Glucose 108 mg/dl (70-99); Potassium 3.9 mmol/L (3.5-5.1); Sodium 145 mmol/L (135-145); eGFR > 60.00
[2024-08-22] MEDS: LASIX 40 MG IV (10:55)
--- NOTE | 2024-08-22 12:21 | CON.CAR ---
Addendum entered and electronically signed by Clyde Nunes MD 08/22/24 17:39:
78 yo female with PMH of TAVR 2020, LBBB, inappropriate sinus tachycardia is admitted with PNA, and also COPD exacerbation. We are consulted for abnormal tele. Exam with RRR, no murmurs, trace edema. Cr 0.7.
Echo 08/21/24 shows EF 55-60%, normal TAVR, mild MS. Last cath (prior to TAVR) in 2020 showed non-obstructive CAD.
Tele shows brief runs of SVT and NSVT. Asymptomatic. She is not on beta yelitza due to lung disease. Increase diltiazem to 240 mg daily. Will need updated ischemic eval. To determine timing of nuclear stress test: inpatient vs outpatient based on
clinical course.
Original Note:
Consultation
Consultation Request
Date/Time Consultation Requested: 08/22/24 1218
Date/Time Consultation Performed: 08/22/24 1225
Requesting Provider: Dr. Colvin
Performing Provider: Mary BARTLETT for Dr. Nunes
Reason for Consultation: NSVT
Medical History
-
Chief Complaint: fatigue, MCHUGH, sore throat
History of Present Illness:
78 y/o female with severe s/p TAVR 2020, HFpEF, LBBB, inappropriate ST (23%), occasional PVC's (2%) and PAC's (2%), severe right ICA stenosis (Dr. Vanessa, dyslipidemia, COPD on O2, hypothyroidism, and difficulty with memory who is here for sore
throat, fatigue, headache. She is admitted with PNA and is being treated with antibiotics. We are consulted for suspected NSVT on monitor. She denies any palpitations.
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
Past Medical History
Past Medical History: Arrhythmias, CHF, COPD, Hypothyroidism, Valvular Disease and Other (as above)
Social History
Tobacco: Former Smoker
Family History
Family History: Reviewed & Not Pertinent
Allergies / Home Medications
Allergy/AdvReac Type Severity Reaction Status Date / Time
No Known Allergies Allergy Verified 11/10/22 19:24
�Medication �Instructions �Recorded �Confirmed �Type
levothyroxine 50 mcg tablet 50 mcg PO TUTHSA Thyroid 05/28/15 08/18/24 History
levothyroxine 75 mcg tablet 75 mcg PO SUMOWEFR Thyroid 05/28/15 08/18/24 History
alendronate 70 mg tablet 70 mg PO ALEXANDER OSTEOPOROSIS 10/29/20 08/18/24 History
aspirin 81 mg tablet,delayed 81 mg PO DAILY Blood clot 11/16/21 08/18/24 History
release prevention/tx
diltiazem HCl 180 mg 180 mg PO DAILY Blood pressure 11/16/21 08/18/24 History
capsule,extended release 24 hr
multivitamin with folic acid 400 1 tab PO DAILY Supplement 11/16/21 08/18/24 History
mcg tablet (Tab-A-Lizeth)
albuterol sulfate 2.5 mg/3 mL 2.5 mg (3 mL) inhalation R Q4HPRN 04/28/22 08/18/24 Rx
(0.083 %) solution for nebulization PRN sob ##3
furosemide 20 mg tablet 20 mg PO DAILY #30 tabs 04/28/22 08/18/24 Rx
atorvastatin 40 mg tablet 40 mg PO DAILY High Cholesterol 08/18/24 08/18/24 History
budesonide-formoterol HFA 160 2 puff inhalation R BID copd 08/18/24 08/18/24 History
mcg-4.5 mcg/actuation aerosol
inhaler (Symbicort)
clopidogrel 75 mg tablet 75 mg PO DAILY Heart 08/18/24 08/18/24 History
Disease/Condition
escitalopram oxalate 20 mg tablet 20 mg PO DAILY Mental 08/18/24 08/18/24 History
Health/Anxiety
tiotropium bromide 2.5 2 inh inhalation R DAILY COPD 08/18/24 08/18/24 History
mcg/actuation mist for inhalation
(Spiriva Respimat)
Review of Systems
-
History Source: Patient
All other systems: Negative unless noted
Constitutional: Fatigue
EENT: Sore Throat
Respiratory: Cough
Neurological: Headache
Physical Exam
Vital Signs
Temp Pulse Resp BP Pulse Ox
97.6 F 83 18 138/51 98
08/22/24 11:52 08/22/24 11:52 08/22/24 11:52 08/22/24 11:52 08/22/24 11:52
Lab Results
08/22/24 07:31
08/22/24 07:31
Kcq-C-Eogkgsqzwog Pept 9070 pg/ml 08/20/24 14:01
Physical Exam
General: Well Developed and No Apparent Distress
HEENT: Normocephalic and Anicteric
Respiratory: Other (on O2 by NC, diminished, but no wheezing or crackles)
Cardiac: Regular Rhythm
Musculoskeletal: No Edema
Skin: Warm and Dry
Neuro: Awake, Alert and Oriented
Psych: Calm
Impression / Plan
-
Arrhythmia:
-telemetry reviewed and on 08/19/24 in AM, she did appear to have brief run NSVT (about 160 BPM for about 4 seconds). Otherwise, I see occasional short runs pSVT (she has LBBB and the runs are same morphology). She is not symptomatic. She is getting
breathing treatments as she has COPD. She is on diltiazem and we can increase dose. K+ and mag are okay, EF is normal. Not on BB with lung disease.
-patient with hx PVC's, PAC's, inappropriate ST
-eventual stress test after recovery. IN 2020, she had a cath with non-obstructive CAD.
PNA:
-on ABX
-management per primary team
-she is feeling improved
HFpEF: chronic
-does not appear volume overloaded to my assessment today
-continue typical lasix and follow volume
COPD:
-on O2 by NC
-not wheezing at present
-on breathing tx and steroids
LBBB: chronic, stable
TAVR:
-stable by echo
Data Reviewed
-
EKG: Tracing Personally Visualized and interpreted (ST with PAC's, 103 BPM LBBB)
Medical Tests (Nuc Med, Echo etc): Report Reviewed by me (Echo 08/21/24: Normal biventricular size and systolic function with an LVEF of 59%. Thickened mitral valve leaflets with severe MAC and mild mitral stenosis. Well-seated bio AV with peak/mean
13/7 mmHg. Mild mitral stenosis. Trivial pericardial effusion. Small pleural effusion.)
Labs: Labs Reviewed by me
--- NOTE | 2024-08-22 12:37 | W.PN.HOSP.TC ---
Today's Communication/Plan
-
switch to oral asix in AM
taper down Solumedrol - plan for Prednisone in AM
cont Abx
Assessment / Plan
Assessment / Plan
78yo F with PMHx of COPD with chronic hypoxic respiratory failure on 3L home O2, osteoporosis, Hx of TAVR, HLD, HFpEF, hypothyroidism came with worsening SOB, found pneumonia
A/P:
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
#Paringitis
#Acute COPD exacerbation
#Moderate pulmonary HTN
# s/p TAVR
#Acute on chronic HFpEF exacerbation
GAS screen neg
Bcx neg
COVID-19, influenza PCR neg
COnt ROcephin/DOxy
Taper steroids
Pulm consult: pneumonic effusion, too small for thoracentesis. Repeat CT chest in 2-3 weeks - patient and daughter verbalized understanding
cont bronchodilators
Lasix IV since ProBN elevated, Echo showed well seated AV, mild MR
CT chest neg for PE, however Right lower lobe consolidation and small parenchymal opacity in the central right lower lobe which could also represent pneumonia, cannot exclude small mass. Recommend short-term follow-up Chest CT to confirm resolution.
Stable 4 mm left lower lobe pulmonary nodule.
#Elevated ddimer
CT neg for PE
LE US pending
#Paroxysmal VT
electrolytes to follow
telemetry
Cardio consult
check TSH
#ANTHONY
cont nocturnal cpap
#Chronic dysphagia with silent aspiration
crush meds as possible
NURSE COORDINATOR consult
VSE showed silent aspiration of the liquids via straw - recommended regular with thin by cup with small sips and meds in puree
#Thrombocytopenia
since admission, low T4 score, no concern for HIT
follow CBC, as it is most likely reactive
#Hypothyroidism
#anxiety d/o
cont home meds
DVT ppx SCDs 2/2 thrombocytopenia
Full code
I have spent at least 38min reviewing chart, test results, communication with consultants and direct patient care
Anticipated Discharge: Within 24 hours
Subjective/Interval History
-
Date of Service: August 22, 2024
Objective Data
-
Labs:
Laboratory Results
08/22/24
07:31
WBC 6.1
Hgb 10.7 L
Hct 33.3 L
Plt Count 104 L
Sodium 145
Potassium 3.9
Chloride 97 L
Carbon Dioxide 39 H
BUN 26 H
Creatinine 0.7
Glucose 108 H
Calcium 8.4
Vital Signs:
Vital Signs
Temp Pulse Resp BP Pulse Ox
97.6 F 83 18 138/51 98
08/22/24 11:52 08/22/24 11:52 08/22/24 11:52 08/22/24 11:52 08/22/24 11:52
I&O
08/21/24 08/22/24 08/23/24
06:59 06:59 06:59
Intake Total 920 / 920 840 / 840
Balance 920 / 920 840 / 840
Physical Exam
-
General: No Apparent Distress
HEENT: Normocephalic
Respiratory: Wheezes
GI: Soft, Nontender and Nondistended
Musculoskeletal: No Clubbing, No Cyanosis and No Edema
Skin: Warm
Neuro: Awake, Alert, Oriented and AO x 3
Psych: Calm
[2024-08-22 12:51] LABS: Magnesium 2.1 mg/dl (1.6-2.3)
[2024-08-22 13:58] LABS: TSH Reflex To Free T4 0.29 uIU/ml (0.47-4.68)
[2024-08-22 14:26] LABS: Free T4 1.29 ng/dl (0.78-2.19)
[2024-08-22] MEDS: CARDIZEM SR 60 MG PO (15:13)
[2024-08-22] MEDS: KLOR-CON 20 MEQ PO (16:04)
--- NOTE | 2024-08-22 16:33 | W.PN.PUL3 ---
Today's Communication / Plan
-
Agree with decreasing Solu-Medrol, transition to prednisone tomorrow
Repeat chest x-ray PA and lateral in the morning
Continue antibiotics
Follow culture
Diuretics as able
Continue nocturnal ventilator
Will follow
Assessment
-
Acute respiratory insufficiency-hypoxemic currently on 4 L nasal cannula
Chronic hypoxemic respiratory failure on 3 L nasal cannula
Right lower lobe pneumonia:
CT chest 08/20/2024: No evidence for central pulmonary embolism. Right lower lobe consolidation with a small right pleural effusion. Small parenchymal opacity on the right lower lobe. Moderate centrilobular emphysema. Stable 4 mm left lower lobe
pulmonary nodule
Small right pleural effusion-likely parapneumonic
Acute exacerbation of COPD
Possible heart failure acute on chronic proBNP 9000
Echocardiogram from 2021: Showed mild LVH with hypokinesis in the anterior wall and low normal systolic function. Normal right ventricular size and function.
Aortic valve seated in the right position. Mild to moderate TR. Moderate pulmonary hypertension
EKG 08/18/2024: Reviewed sinus tachycardia. PVCs. LVH. Septal infarct age undetermined. Left bundle branch block
Conditions present prior to admission:
Admitted with right lower lobe pneumonia 08/10/2022-Streptococcus bacteremia. Respiratory failure requiring intubation.
Right parapneumonic effusion
COPD, severe centrilobular emphysema
On home Trilogy ventilator
On Symbicort/Spiriva
3 L supplemental oxygen
Last time seen in our office Dr. Vale was on 06/2023
Chronic hypercapnic respiratory failure: Baseline serum bicarbonate 60
History of right lower lobe pneumonia resolved in the past
4 mm lung nodule within the left lower lobe, unchanged compared to prior CT dated 04/24/2022 and also unchanged compared to prior CT dated 08/22/2020, therefore likely benign.
Spontaneous right pneumothorax requiring hospitalization 2019
TAVR, March 2021
Peripheral vascular disease-history of carotid stenosis. Descending thoracic aortic stent follows with Dr. Vanessa.
CHF with preserved ejection fraction
Hypertension
Osteoporosis
Depression
Hypothyroidism
Plan recommendations:
Recurrent right lower lobe pneumonia based on clinical picture. Clinically improved.
No leukocytosis/afebrile
Continue with antibiotics-hopefully can be transition to orals tomorrow.
All cultures negative so far.
-
Speech evaluation noted with aspiration with thin liquids. Continue with diet modifications.
Patient has poor dentition, she states that she has some implants to be placed at some point. Having difficulty chewing the food.
-
Follow cultures
So far COVID-negative, influenza negative and pneumococcal negative.
-
Pleural effusion too small for thoracentesis
Repeat chest x-ray AP and lateral 08/23/2024. Follow-up on pleural effusion.
Patient will need repeat CT chest in about 6 to 8 weeks to document improvement/resolution of right lower lobe masslike opacity. I have discussed this with patient and she is aware.
She has an appointment in November but likely will need an appointment before that.
-
Continue diuretics bridget.
Repeat echocardiogram 08/21/2024:showed LVEF 59%. Bioprosthetic aortic valve well-seated. Mild mitral stenosis. Trivial pericardial effusion. Small pleural effu
In regards to COPD:
Continue nebulizer therapy with DuoNebs 4 times per day
Solu-Medrol IV, okay with decreasing steroids today, transition to prednisone tomorrow 40 mg and decrease by 10 mg every 48 hours to off.
Okay to hold inhalers while on nebulizers, restart inhalers upon discharge.
Will need outpatient follow-up
Continue ox supplementation, close to baseline
Continue on nocturnal ventilator, patient has her own machine
-
DVT prophylaxis with Lovenox
Lower extremity Dopplers 08/21/2024: No evidence for DVT.
Continue physical therapy/Occupational Therapy. Patient states that she is feeling better.
-
[facility] records reviewed, last time seen in our office was June 2023.
Has severe COPD with chronic hypercapnic and hypoxemic respiratory failure.
Will need to follow-up in about 2 to 3 weeks after discharge with Dr. Vale.
-
Will continue to follow
Subjective Data
-
Date of Service:
Date of Service: August 22, 2024
Chief Complaint: Pulmonary Follow Up (Pneumonia/pleural effusion)
Subjective:
Patient feels better
Denies phlegm production
Denies any chest pain
Afebrile
Review of Systems
Cardiopulmonary: Dyspnea (Improved) and Cough (Improved)
GI: Abdominal Pain (n) and Nausea (n)
Neuro: Headache (n)
Objective Data
Data Reviewed
Vital Signs / I&O / Oxygen:
Vital Signs
Temp Pulse Resp BP Pulse Ox
97.6 F 88 18 138/51 98
08/22/24 11:52 08/22/24 16:09 08/22/24 16:09 08/22/24 11:52 08/22/24 16:09
Intake and Output
08/21/24 08/22/24 08/23/24
06:59 06:59 06:59
Intake Total 920 / 920 840 / 840
Balance 920 / 920 840 / 840
SaO2 98
Nasal Cannula flow liters per 3
minute
Physical Exam
General: Comfortable
HEENT: Normocephalic
Cardiovascular: S1-S2
Respiratory: Crackles (Right base) and Non-Labored Respirations
GI: Soft and Non Distended
Neurology: Awake, Alert, Oriented, AO x 3 and No Motor Deficits
Labs/Micro/Reports
Lab Data
08/22/24 07:31
08/22/24 07:31
Microbiology
08/18/24 13:26 Blood/Venous Blood Culture - Preliminary
No Growth in 4 days- Final report to follow
08/18/24 13:26 Blood/Venous Blood Culture - Preliminary
No Growth in 4 days- Final report to follow
08/18/24 15:16 Throat/Pharynx Streptococcus Screen (CHENG) - Final
No Beta Hemolytic Streptococci Isolated
08/18/24 15:16 Throat/Pharynx Streptococcus Rapid Screen - Final
Rapid Strep Screen (Group A) Negative
[2024-08-22] MEDS: LOVENOX 30 MG SC (18:07)
[2024-08-22] MEDS: ROCEPHIN 1000 MG IV (19:36)
[2024-08-22] MEDS: STERILE WATER FOR INJECTION 10 ML IV (19:36)
[2024-08-23] VITALS (8 sets, daily range): BP systolic 122–178; BP diastolic 46–72; PULSE 79–92; O2SAT 97; BMI 20.2
[2024-08-23] MEDS: SYNTHROID 50 MCG PO (05:19)
[2024-08-23] MEDS: SOLU-MEDROL PF 40 MG IV (05:20)
[2024-08-23] MEDS: DUONEB 3 ML INH ×2 (07:39→11:21)
[2024-08-23] MEDS: SYMBICORT 160/4.5 MCG INHALER 2 PUFF INH ×2 (07:39→19:50)
--- NOTE | 2024-08-23 07:49 | CM ---
met with patient at bedside.patient lives with her daughter and daughter's family in split level homewith 6 yul[address],hr bed and bath is up 5 steps to second level.she amb I and is I with hr adl.she uses home o2 .has had a vn through [facility] and has never
been in an ip rehab.
PCP:dr flores Pharmacy:[facility] in [place]
DME:shower chair,home o2 at 3 liters nc through [facility],home trilogy
PMH:hypothyroid,copd,chronic hyperapnic resp failure,depression,op,tavr,hld
patient is adm with r ll pna.on iv ceftriaxone,iv solumedrol changing to po prednisone today,po lasix,nebs.following cxs,cxr today.Plan :home with no needs vs home with vn.
--- NOTE | 2024-08-23 08:31 | W.PN.CD ---
Today's Communication / Plan
-
-Diltiazem dose increased to 240 mg daily yesterday, the patient is still with significant runs on telemetry.
-Will add PO digoxin.
-Continue Lasix 20 mg PO daily.
Impression / Plan
-
Recurrent PSVT/NSVT:
-Patient denies palpitations.
-She is getting breathing treatments as she has COPD/pneumonia.
-Diltiazem dose increased to 240 mg daily yesterday, the patient is still with significant runs on telemetry.
-EF is normal.
-Not on BB with lung disease; will avoid amiodarone as well.
-Patient with hx PVC's, PAC's, inappropriate ST
-Will add PO digoxin.
-Eventual stress test after recovery as outpatient; and 2020, she had a cath with non-obstructive CAD.
-Continue monitor tech; will reevaluate tomorrow.
PNA:
-Continue antibiotics as per primary team.
HFpEF: chronic
-Fairly compensated on examination.
-Continue Lasix 20 mg PO daily.
COPD:
-On breathing tx and steroids; management as per Pulmonary.
LBBB: chronic.
TAVR:
-stable by echo
Physical Exam
Vital Signs/Labs
Vital Signs
Temp Pulse Resp BP Pulse Ox
98.1 F 98 20 135/72 94
08/23/24 08:10 08/23/24 08:10 08/23/24 08:10 08/23/24 08:10 08/23/24 08:10
08/22/24 08/23/24 08/24/24
06:59 06:59 06:59
Actual Weight 46.805 kg
Magnesium 2.1 mg/dl (1.6-2.3) 08/22/24 07:31
Free T4 1.29 ng/dl (0.78-2.19) 08/22/24 07:31
08/20/24
14:01
[address] Pept 9070
Physical Exam
Constitutional: No acute distress and Comfortable
EENT: Anicteric
Cardiovascular: Rhythm & rate is regular (Ectopy present), Systolic murmur absent, Pedal edema present (Trace) and S1S2 is normal
Respiratory: Respiratory effort normal, Wheeze Present (Mild end expiratory wheeze at bases) and Other (Decreased bilateral breath sounds)
GI: Soft
Neuro/Psych: AO x 3
Other: Skin (Warm, dry, intact)
Data Reviewed
-
Date of Service: August 23, 2024
EKG: Tracing Personally Visualized and interpreted (Telemetry: Sinus rhythm, brief runs of PSVT and NSVT)
Labs: Labs Reviewed by me
[2024-08-23 08:52] LABS: % Immature Granulocytes 0.3 % (0-0.5); % Lymphocytes 7.5 % (20.5-51.1); % Monocytes 6.8 % (1.7-9.3); % Neutrophils 85.4 % (42.2-75.2); Absolute Lymphocytes 0.5 10^3/uL (1.2-3.4); Absolute Monocytes 0.4 10^3/uL (0.1-0.6); Absolute Neutrophils 5.1 10^3/uL (1.4-6.5); Hematocrit 33.5 % (37.0-47.0); Hemoglobin 11.1 g/dL (12.0-16.0); Mean Corp Hgb Conc. 33.1 g/dL (33.0-37.0); Mean Corpuscular Hgb 32.9 pg (27.0-31.0); Mean Corpuscular Volume 99.4 fL (81.0-99.0); Mean Platelet Volume 11.7 fL (7.4-10.4); Nucleated Red Blood Cells % 0 %; Platelet Count 120 10^3/uL (130-400); Red Blood Cell Count 3.37 10^6/uL (4.20-5.40); Red Cell Dist. Width 13.1 % (11.5-14.5)
[2024-08-23 09:19] LABS: ALT (SGPT) 38 U/L (0-35); AST (SGOT) 37 U/L (14-36); Albumin 3.4 g/dl (3.5-5.0); Alkaline Phosphatase 39 U/L (38-126); Blood Urea Nitrogen 34 mg/dl (7-17); Calcium 8.9 mg/dl (8.4-10.2); Chloride 97 mmol/L (98-107); Estimated Creatinine Clearance 49 ml/min; Glucose 109 mg/dl (70-99); Potassium 4.1 mmol/L (3.5-5.1); Sodium 143 mmol/L (135-145); Total Bilirubin 0.3 mg/dl (0.2-1.3); Total Protein 5.9 g/dl (6.3-8.2); eGFR > 60.00
[2024-08-23] MEDS: LANOXIN 500 MCG PO (09:22)
[2024-08-23] MEDS: VIBRAMYCIN 100 MG PO ×2 (09:22→20:09)
[2024-08-23] MEDS: CARDIZEM CD 240 MG PO (09:22)
[2024-08-23] MEDS: ASPIR LOW (ENTERIC COATED) 81 MG PO (09:22)
[2024-08-23] MEDS: LEXAPRO 20 MG PO (09:23)
[2024-08-23] MEDS: LIPITOR 40 MG PO (09:23)
[2024-08-23] MEDS: LASIX 20 MG PO (09:23)
[2024-08-23] MEDS: PLAVIX 75 MG PO (09:23)
--- NOTE | 2024-08-23 09:26 | W.PN.HOSP.TC ---
Today's Communication/Plan
-
cardio for VT mgmt
Swtich to prednisone
cont Abx
Assessment / Plan
Assessment / Plan
78yo F with PMHx of COPD with chronic hypoxic respiratory failure on 3L home O2, osteoporosis, Hx of TAVR, HLD, HFpEF, hypothyroidism came with worsening SOB, found pneumonia, complicated by CHF and COPD. LAter developed frequent runs of VT
A/P:
#Hypothyroidism
#Paroxysmal VT
electrolytes to follow
telemetry
Cardio consult: increased Cardizem, started digoxin, plan for ischemia w/u
TSH mildly depressed - decrease Synthroid, repeat TSH in 2-3 weeks
#Acute on chronic hypoxic and hypercapnic respiratory failure 2/2 RLL pneumonia with unspecified organism
#Pharyngitis
#Acute COPD exacerbation
#Moderate pulmonary HTN
# s/p TAVR
#Acute on chronic HFpEF exacerbation
#Small R pleural effusion
GAS screen neg
Bcx neg
COVID-19, influenza PCR neg
COnt ROcephin/DOxy
Taper steroids
Pulm consult: pneumonic effusion, too small for thoracentesis. Repeat CT chest in 2-3 weeks - patient and daughter verbalized understanding
cont bronchodilators
Lasix IV since ProBN elevated, Echo showed well seated AV, mild MR
CT chest neg for PE, however Right lower lobe consolidation and small parenchymal opacity in the central right lower lobe which could also represent pneumonia, cannot exclude small mass. Recommend short-term follow-up Chest CT to confirm resolution.
Stable 4 mm left lower lobe pulmonary nodule.
#Carotid stenosis
#Descending thoracic aortic stent
followed by as outpatient, monitoring
#Chronic headaches with pontine calcification on CT in 2019
Recommended MRI of the brain at that time - same recommended now to daughter - she verbalized understanding and will follow with PCP
#Elevated ddimer
CT neg for PE
LE US neg for DVT
#ANTHONY
cont nocturnal cpap
#Chronic dysphagia with silent aspiration
crush meds as possible
COLLAR WORKER consult
VSE showed silent aspiration of the liquids via straw - recommended regular with thin by cup with small sips and meds in puree
#Thrombocytopenia, reactive, improving
#Transaminitis
chronic
check hepatitis panel
Outpatient GI follow up for US
#anxiety d/o
cont home meds
DVT ppx Lovenox
Full code
I have spent at least 58min reviewing chart, test results, communication with consultants and direct patient care
Anticipated Discharge: 24 - 48 hours
Subjective/Interval History
-
Date of Service: August 23, 2024
Objective Data
-
Labs:
Laboratory Results
08/23/24
07:56
WBC 6.0
Hgb 11.1 L
Hct 33.5 L
Plt Count 120 L
Sodium 143
Potassium 4.1
Chloride 97 L
Carbon Dioxide Pending
BUN 34 H
Creatinine 0.7
Glucose 109 H
Calcium 8.9
Total Bilirubin 0.3
AST 37 H
ALT 38 H
Alkaline Phosphatase 39
Vital Signs:
Vital Signs
Temp Pulse Resp BP Pulse Ox
98.1 F 98 20 135/72 94
08/23/24 08:10 08/23/24 08:10 08/23/24 08:10 08/23/24 08:10 08/23/24 08:10
I&O
08/22/24 08/23/24 08/24/24
06:59 06:59 06:59
Intake Total 840 / 840 1140 / 1140
Balance 840 / 840 1140 / 1140
Review of Systems
-
History Source: Patient
All other systems: Reviewed and negative
Cardiac: Reports Palpitations
Physical Exam
-
General: No Apparent Distress
HEENT: Moist Mucous Membranes
Respiratory: Clear to Auscultation
Cardiac: Regular Rhythm
GI: Soft, Nontender and Nondistended
Musculoskeletal: No Clubbing, No Cyanosis, Edema, Right Lower Extrem (trance), Edema, Left Lower Extrem (trace) and Normal Gait & Station
Skin: Warm; Negative Dry
Neuro: Awake, Alert, Oriented and AO x 3
Psych: Calm
[2024-08-23 09:29] LABS: Carbon Dioxide 34 mmol/L (22-30)
[2024-08-23] MEDS: DELTASONE 40 MG PO (10:29)
--- NOTE | 2024-08-23 11:06 | W.PN.PUL3 ---
Today's Communication / Plan
-
Prednisone taper
Nebulizers, restart inhalers upon discharge
Incentive spirometry
Continue ox supplementation
Nocturnal mechanical ventilation
Monitor for ventricular tachycardia-eventual ischemic evaluation
Hopefully discharge in the next 24 hours
Assessment
-
Acute respiratory insufficiency-hypoxemic currently on 4 L nasal cannula
Chronic hypoxemic respiratory failure on 3 L nasal cannula
Right lower lobe pneumonia:
CT chest 08/20/2024: No evidence for central pulmonary embolism. Right lower lobe consolidation with a small right pleural effusion. Small parenchymal opacity on the right lower lobe. Moderate centrilobular emphysema. Stable 4 mm left lower lobe
pulmonary nodule
Small right pleural effusion-likely parapneumonic
Acute exacerbation of COPD
Possible heart failure acute on chronic proBNP 9000
Echocardiogram from 2021: Showed mild LVH with hypokinesis in the anterior wall and low normal systolic function. Normal right ventricular size and function.
Aortic valve seated in the right position. Mild to moderate TR. Moderate pulmonary hypertension
EKG 08/18/2024: Reviewed sinus tachycardia. PVCs. LVH. Septal infarct age undetermined. Left bundle branch block nonsustained ventricular tachycardia
Nonsustained ventricular tachycardia
Conditions present prior to admission:
Admitted with right lower lobe pneumonia 08/10/2022-Streptococcus bacteremia. Respiratory failure requiring intubation.
Right parapneumonic effusion
COPD, severe centrilobular emphysema
On home Trilogy ventilator
On Symbicort/Spiriva
3 L supplemental oxygen
Last time seen in our office Dr. Vale was on 06/2023
Chronic hypercapnic respiratory failure: Baseline serum bicarbonate 60
History of right lower lobe pneumonia resolved in the past
4 mm lung nodule within the left lower lobe, unchanged compared to prior CT dated 04/24/2022 and also unchanged compared to prior CT dated 08/22/2020, therefore likely benign.
Spontaneous right pneumothorax requiring hospitalization 2019
TAVR, March 2021
Peripheral vascular disease-history of carotid stenosis. Descending thoracic aortic stent follows with Dr. Vanessa.
CHF with preserved ejection fraction
Hypertension
Osteoporosis
Depression
Hypothyroidism
Plan recommendations:
Recurrent right lower lobe pneumonia based on clinical picture. Clinically improved.
No leukocytosis/afebrile
Continue with antibiotics-complete total of 7 days.
All cultures negative so far.
Most recent chest x-ray 08/23/2024: Showed stable trace right pleural effusion. Minimal atelectasis. No acute infiltrate.
-
Speech evaluation noted with aspiration with thin liquids. Continue with diet modifications.
Patient has poor dentition, she states that she has some implants to be placed at some point. Having difficulty chewing the food.
-
Follow cultures
So far COVID-negative, influenza negative and pneumococcal negative.
-
Pleural effusion too small for thoracentesis
chest x-ray AP and lateral 08/23/2024-showed no evidence for worsening pleural effusion.
Patient will need repeat CT chest in about 6 to 8 weeks to document improvement/resolution of right lower lobe masslike opacity. I have discussed this with patient and she is aware.
She has an appointment in November but likely will need an appointment before that.
-
Nonsustained ventricular tachycardia.
Oral diuretics.
Repeat echocardiogram 08/21/2024:showed LVEF 59%. Bioprosthetic aortic valve well-seated. Mild mitral stenosis. Trivial pericardial effusion.
Pleural effusion.
Cardiology following
Eventual ischemic evaluation
-
In regards to COPD:
Continue nebulizer therapy with DuoNebs 4 times per day
transition to prednisone tomorrow 40 mg and decrease by 10 mg every 48 hours to off.
Okay to hold inhalers while on nebulizers, restart inhalers upon discharge.
Will need outpatient follow-up
Continue ox supplementation, back to baseline.
Continue on nocturnal ventilator, patient has her own machine
-
DVT prophylaxis with Lovenox
Lower extremity Dopplers 08/21/2024: No evidence for DVT.
Continue physical therapy/Occupational Therapy. Patient states that she is feeling better.
-
[facility] records reviewed, last time seen in our office was June 2023.
Has severe COPD with chronic hypercapnic and hypoxemic respiratory failure.
Will need to follow-up in about 2 to 3 weeks after discharge with Dr. Vale.
-
Will continue to follow-hopefully discharge soon.
Currently being monitored for nonsustained ventricular tachycardia
From the pulmonary perspective seems to be improved
Subjective Data
-
Date of Service:
Date of Service: August 23, 2024
Chief Complaint: Pulmonary Follow Up (Pneumonia/pleural effusion)
Subjective:
Patient denies any new pulmonary complaints
Denies lightheadedness or palpitation
Review of Systems
General: Fever (n)
Cardiopulmonary: Dyspnea (Improved) and Cough (Improved)
GI: Abdominal Pain (n) and Nausea (n)
Neuro: Headache (n)
Objective Data
Data Reviewed
Vital Signs / I&O / Oxygen:
Vital Signs
Temp Pulse Resp BP Pulse Ox
98.1 F 98 20 135/72 94
08/23/24 08:10 08/23/24 09:22 08/23/24 08:10 08/23/24 09:22 08/23/24 08:10
Intake and Output
08/22/24 08/23/24 08/24/24
06:59 06:59 06:59
Intake Total 840 / 840 1140 / 1140
Balance 840 / 840 1140 / 1140
SaO2 94
Nasal Cannula flow liters per 3
minute
Physical Exam
General: Comfortable
HEENT: Normocephalic
Cardiovascular: S1-S2
Respiratory: Crackles (Right base) and Non-Labored Respirations
GI: Soft and Non Distended
Neurology: Awake, Alert, Oriented, AO x 3 and No Motor Deficits
Labs/Micro/Reports
Lab Data
08/23/24 07:56
08/23/24 07:56
Microbiology
08/18/24 13:26 Blood/Venous Blood Culture - Preliminary
No Growth in 4 days- Final report to follow
08/18/24 13:26 Blood/Venous Blood Culture - Preliminary
No Growth in 4 days- Final report to follow
08/18/24 15:16 Throat/Pharynx Streptococcus Screen ([facility]) - Final
No Beta Hemolytic Streptococci Isolated
08/18/24 15:16 Throat/Pharynx Streptococcus Rapid Screen - Final
Rapid Strep Screen (Group A) Negative
[2024-08-23] MEDS: CARDIZEM CD 120 MG PO (13:53)
[2024-08-23] MEDS: LOVENOX 30 MG SC (17:23)
[2024-08-23] MEDS: ROCEPHIN 1000 MG IV (20:09)
[2024-08-23] MEDS: STERILE WATER FOR INJECTION 10 ML IV (20:10)
[2024-08-23 20:29] LABS: Hepatitis B Surface Antigen Negative (Negative)
[2024-08-23 20:47] LABS: Hepatitis B Core Ab, Total Negative (Negative); Hepatitis B Surface Antibody Negative; Hepatitis C Antibody Negative (Negative)
[2024-08-24] VITALS (14 sets, daily range): BP systolic 139–178; BP diastolic 50–68
[2024-08-24] MEDS: SYNTHROID 50 MCG PO (05:48)
[2024-08-24] MEDS: SYMBICORT 160/4.5 MCG INHALER 2 PUFF INH ×2 (07:34→19:45)
[2024-08-24 08:47] LABS: Hematocrit 34.2 % (37.0-47.0); Mean Corp Hgb Conc. 32.2 g/dL (33.0-37.0); Mean Corpuscular Hgb 31.6 pg (27.0-31.0); Mean Corpuscular Volume 98.3 fL (81.0-99.0); Mean Platelet Volume 11.4 fL (7.4-10.4); Platelet Count 147 10^3/uL (130-400); Red Blood Cell Count 3.48 10^6/uL (4.20-5.40); Red Cell Dist. Width 13.1 % (11.5-14.5)
[2024-08-24 09:06] LABS: Blood Urea Nitrogen 40 mg/dl (7-17); Calcium 8.9 mg/dl (8.4-10.2); Chloride 97 mmol/L (98-107); Estimated Creatinine Clearance 49 ml/min; Glucose 76 mg/dl (70-99); Potassium 4.4 mmol/L (3.5-5.1); Sodium 142 mmol/L (135-145); eGFR > 60.00
[2024-08-24 09:24] LABS: Carbon Dioxide 33 mmol/L (22-30)
[2024-08-24] MEDS: ASPIR LOW (ENTERIC COATED) 81 MG PO (09:31)
[2024-08-24] MEDS: PLAVIX 75 MG PO (09:32)
--- NOTE | 2024-08-24 09:42 | W.PN.CD ---
Today's Communication / Plan
-
-
-
From the EP perspective there is no specific therapy indicated/needed for her asymptomatic NSVT
Her short runs of AT will likely not entirely go away, fortunately they are short and asymptomatic
As outpatient Dr. Soriano will likely add an SGLT-I and an MRA and perhaps ARB or ARNI for her HFpEF
-
-
Impression / Plan
-
PACs and Short runs of AT
- Tele last 24 hrs looks good.
- Just a short very short runs
NSVT
- None in several days
- Normal LVEF by echo 08/2024
- No syncope
- No indication for EPS/ICD
- No obstructive CAD at cath prior to TAVR on 02/10/2021
PNA:
-Continue antibiotics as per primary team.
HFpEF: chronic
-Fairly compensated on examination.
-Continue Lasix 20 mg PO daily.
- As outpatient Dr. Soriano will likely add an SGLT-I and an MRA and perhaps ARB or ARNI
COPD:
-On breathing tx and steroids; management as per Pulmonary.
LBBB: chronic.
TAVR:
-stable by echo
Subjective:
Feeling better
Physical Exam
Vital Signs/Labs
Vital Signs
Temp Pulse Resp BP Pulse Ox
97.9 F 87 16 164/64 97
08/24/24 07:30 08/24/24 07:35 08/24/24 07:35 08/24/24 07:30 08/24/24 07:35
08/23/24 08/24/24 08/25/24
06:59 06:59 06:59
Actual Weight 46.805 kg
08/24/24 07:57
08/24/24 07:57
Magnesium 2.0 mg/dl (1.6-2.3) 08/23/24 07:56
Free T4 1.29 ng/dl (0.78-2.19) 08/22/24 07:31
08/20/24
14:01
[address]-T-Gbdbvn[address] Pept 9070
Physical Exam
Constitutional: No acute distress
EENT: Anicteric
Cardiovascular: Rhythm & rate is regular and Pedal edema is absent
Respiratory: Respiratory effort normal and Lungs clear to auscul.
GI: Soft and Distention absent
Neuro/Psych: Alert
Data Reviewed
-
Date of Service: August 24, 2024
--- NOTE | 2024-08-24 10:55 | PN.CDI ---
Addendum entered and electronically signed by Bear Colvin MD 08/24/24 13:11:
there was no sepsis
Original Note:
CDI
- -
CDI:
Physician Documentation Request
Admit Date: 08/18/24 13:51
Dear Doctor Vinicius,
Please review the following and provide your response in the progress notes.
Clinical Indicators:
The diagnosis of SEPSIS was documented on 08/18 and 08/19, but is not consistently noted in subsequent documentation.
H+P, 08/18
#Sepsis secondary to the above
#...- Patient presents with fever and tachycardia due to acute infection / RLL pneumonia.
Initial VS: 102 103 15 135/52 95%
PN, 08/19
#RLL Pneumonia
#...Pharyngitis
#...Sepsis secondary to the above
#...- Patient presents with fever and tachycardia due to acute infection / RLL pneumonia.
PN, 08/20
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
#Paringitis
#Acute COPD exacerbation
Based on the above information and the recognized standard SIRS criteria, please clarify if sepsis is still an accurate diagnosis, and reflective of the patient�s condition, to ensure quality of the medical record.
Please clarify the following:
Sepsis/Severe Sepsis was present on admission and is now resolved.
Sepsis/Severe sepsis was present on admission and is still being monitored, evaluated or treated
Sepsis/Severe Sepsis was ruled out
Sepsis/Severe Sepsis is still a likely, suspected, probable diagnosis
Other (please specify)
Recognized standard criteria for this condition and other associated definitions:
Sepsis
-Systemic manifestations of infection, with 2 or more SIRS criteria which include:
-Fever > 100.4��F or hypothermia < 96.8��F
-Leukocytosis WBC > 12,000 or leukopenia, WBC < 4,000, or > 10% bands
-Tachycardia- > 90 beats/minute
-Tachypnea- RR > 20 breaths/minute or PaCO2 < 32mmHg
Source: Merck Manual 2013
-Documentation should include the known or suspected organism, and the underlying infection, such as UTI or pneumonia
Severe Sepsis
-Sepsis with associated acute organ dysfunction, such as renal or respiratory failure
-Documentation should indicate the association between the sepsis and the organ dysfunction
Use of terms such as suspected, likely, concern for, or probable (associated with a specific diagnosis that is being evaluated, monitored, or treated as if it exists) are acceptable and can be coded in the inpatient setting, when documented at the
time of discharge.
Thank you,
Krystal Graf RN BSN CCDS
CDI Specialist
please contact via tiger text
Please use your independent medical judgment in providing your response.
--- NOTE | 2024-08-24 11:00 | W.PN.HOSP.TC ---
Today's Communication/Plan
-
cont mgmt as per cardio based on cath
wean off O2
Assessment / Plan
Assessment / Plan
78yo F with PMHx of COPD with chronic hypoxic respiratory failure on 3L home O2, osteoporosis, Hx of TAVR, HLD, HFpEF, hypothyroidism came with worsening SOB, found pneumonia, complicated by CHF and COPD. LAter developed frequent runs of VT,
cardiology did cardiac cath on 08/24/24
A/P:
#Hypothyroidism
#Paroxysmal VT
electrolytes to follow
telemetry
Cardio consult: increased Cardizem, started digoxin, plan for ischemia w/u - cardiac cath on 08/24/24
TSH mildly depressed - decrease Synthroid, repeat TSH in 2-3 weeks
#Acute on chronic hypoxic and hypercapnic respiratory failure 2/2 RLL pneumonia with unspecified organism
#Pharyngitis
#Acute COPD exacerbation
#Moderate pulmonary HTN
# s/p TAVR
#Acute on chronic HFpEF exacerbation
#Small R pleural effusion
GAS screen neg
Bcx neg
COVID-19, influenza PCR neg
COnt ROcephin/DOxy
Taper steroids
Pulm consult: pneumonic effusion, too small for thoracentesis. Repeat CT chest in 2-3 weeks - patient and daughter verbalized understanding
cont bronchodilators
Lasix IV since ProBN elevated, Echo showed well seated AV, mild MR
CT chest neg for PE, however Right lower lobe consolidation and small parenchymal opacity in the central right lower lobe which could also represent pneumonia, cannot exclude small mass. Recommend short-term follow-up Chest CT to confirm resolution.
Stable 4 mm left lower lobe pulmonary nodule.
#Carotid stenosis
#Descending thoracic aortic stent
followed by as outpatient, monitoring
#Chronic headaches with pontine calcification on CT in 2019
Recommended MRI of the brain at that time - same recommended now to daughter - she verbalized understanding and will follow with PCP
#Elevated ddimer
CT neg for PE
LE US neg for DVT
#ANTHONY
cont nocturnal cpap
#Chronic dysphagia with silent aspiration
crush meds as possible
FINANCIAL ANALYST INTERN consult
VSE showed silent aspiration of the liquids via straw - recommended regular with thin by cup with small sips and meds in puree
#Thrombocytopenia, reactive, improving
#Transaminitis
chronic
check hepatitis panel
Outpatient GI follow up for US
#anxiety d/o
cont home meds
DVT ppx Lovenox
Full code
I have spent at least 58min reviewing chart, test results, communication with consultants and direct patient care
Anticipated Discharge: Within 24 hours
Subjective/Interval History
-
Date of Service: August 24, 2024
Objective Data
-
Labs:
Laboratory Results
08/24/24
07:57
WBC 7.0
Hgb 11.0 L
Hct 34.2 L
Plt Count 147 D
Sodium 142
Potassium 4.4
Chloride 97 L
Carbon Dioxide 33 H
BUN 40 H
Creatinine 0.7
Glucose 76
Calcium 8.9
Vital Signs:
Vital Signs
Temp Pulse Resp BP Pulse Ox
97.9 F 87 16 164/64 97
08/24/24 07:30 08/24/24 07:35 08/24/24 07:35 08/24/24 07:30 08/24/24 07:35
I&O
08/23/24 08/24/24 08/25/24
06:59 06:59 06:59
Intake Total 1140 / 1140 120 / 120
Balance 1140 / 1140 120 / 120
Review of Systems
-
History Source: Patient
All other systems: Reviewed and negative
Physical Exam
-
General: No Apparent Distress
HEENT: Normocephalic
Respiratory: Clear to Auscultation
GI: Soft, Nontender and Nondistended
Genito-urinary: No Costovertebral Tender
Musculoskeletal: No Clubbing, No Cyanosis and No Edema
Skin: Warm
Neuro: Awake, Alert, Oriented and AO x 3
Psych: Calm
[2024-08-24 11:23] LABS: ACT-LR - POC 321 Seconds (116-155)
[2024-08-24 11:48] LABS: ACT-LR - POC 277 Seconds (116-155)
--- NOTE | 2024-08-24 11:58 | W.PN.PUL3 ---
Today's Communication / Plan
-
complete ABX total 7d
Prednisone taper
Restart inhalers after DC
Pt has oxygen at home, cont. maitain pulse ox >90%
Ok to DC from my perspective
Sign off.
Assessment
-
Acute respiratory insufficiency-hypoxemic currently on 4 L nasal cannula
Chronic hypoxemic respiratory failure on 3 L nasal cannula
Right lower lobe pneumonia:
CT chest 08/20/2024: No evidence for central pulmonary embolism. Right lower lobe consolidation with a small right pleural effusion. Small parenchymal opacity on the right lower lobe. Moderate centrilobular emphysema. Stable 4 mm left lower lobe
pulmonary nodule
Small right pleural effusion-likely parapneumonic
Acute exacerbation of COPD
Possible heart failure acute on chronic proBNP 9000
Echocardiogram from 2021: Showed mild LVH with hypokinesis in the anterior wall and low normal systolic function. Normal right ventricular size and function.
Aortic valve seated in the right position. Mild to moderate TR. Moderate pulmonary hypertension
EKG 08/18/2024: Reviewed sinus tachycardia. PVCs. LVH. Septal infarct age undetermined. Left bundle branch block nonsustained ventricular tachycardia
Nonsustained ventricular tachycardia
Conditions present prior to admission:
Admitted with right lower lobe pneumonia 08/10/2022-Streptococcus bacteremia. Respiratory failure requiring intubation.
Right parapneumonic effusion
COPD, severe centrilobular emphysema
On home Trilogy ventilator
On Symbicort/Spiriva
3 L supplemental oxygen
Last time seen in our office Dr. Vale was on 06/2023
Chronic hypercapnic respiratory failure: Baseline serum bicarbonate 60
History of right lower lobe pneumonia resolved in the past
4 mm lung nodule within the left lower lobe, unchanged compared to prior CT dated 04/24/2022 and also unchanged compared to prior CT dated 08/22/2020, therefore likely benign.
Spontaneous right pneumothorax requiring hospitalization 2019
TAVR, March 2021
Peripheral vascular disease-history of carotid stenosis. Descending thoracic aortic stent follows with Dr. Vanessa.
CHF with preserved ejection fraction
Hypertension
Osteoporosis
Depression
Hypothyroidism
Plan recommendations:
Recurrent right lower lobe pneumonia based on clinical picture. Clinically improved.
No leukocytosis/afebrile
Continue with antibiotics-complete total of 7 days.
All cultures negative so far.
Most recent chest x-ray 08/23/2024: Showed stable trace right pleural effusion. Minimal atelectasis. No acute infiltrate.
-
Speech evaluation noted with aspiration with thin liquids. Continue with diet modifications.
Patient has poor dentition, she states that she has some implants to be placed at some point. Having difficulty chewing the food.
-
So far COVID-negative, influenza negative and pneumococcal negative.
-
Pleural effusion too small for thoracentesis
chest x-ray AP and lateral 08/23/2024-showed no evidence for worsening pleural effusion.
Patient will need repeat CT chest in about 6 to 8 weeks to document improvement/resolution of right lower lobe masslike opacity. I have discussed this with patient and she is aware.
She has an appointment in November but likely will need an appointment before that.
-
Nonsustained ventricular tachycardia.
Oral diuretics.
Repeat echocardiogram 08/21/2024:showed LVEF 59%. Bioprosthetic aortic valve well-seated. Mild mitral stenosis. Trivial pericardial effusion.
Pleural effusion.
Cardiology following- no specific inteventions.
Eventual ischemic evaluation
-
In regards to COPD:
Continue nebulizer therapy with DuoNebs 4 times per day
prednisone tomorrow 40 mg and decrease by 10 mg every 48 hours to off.
Okay to hold inhalers while on nebulizers, restart inhalers upon discharge.
Will need outpatient follow-up
Continue ox supplementation, back to baseline.
Continue on nocturnal ventilator, patient has her own machine
-
DVT prophylaxis with Lovenox
Lower extremity Dopplers 08/21/2024: No evidence for DVT.
Continue physical therapy/Occupational Therapy. Patient states that she is feeling better.
-
[facility] records reviewed, last time seen in our office was June 2023.
Has severe COPD with chronic hypercapnic and hypoxemic respiratory failure.
Will need to follow-up in about 2 to 3 weeks after discharge with Dr. Vale.
-
ok to DC form pulmonary perspective.
Will sign off.
Subjective Data
-
Date of Service:
Date of Service: August 24, 2024
Chief Complaint: Pulmonary Follow Up (Pneumonia/pleural effusion)
Subjective:
No new pulmonary complaints.
Feels better overall.
Review of Systems
General: Fever (n)
Cardiopulmonary: Dyspnea (improved), Cough (n) and Sputum Production
GI: Abdominal Pain (n) and Nausea (n)
Objective Data
Data Reviewed
Vital Signs / I&O / Oxygen:
Vital Signs
Temp Pulse Resp BP Pulse Ox
97.9 F 87 16 164/64 97
08/24/24 07:30 08/24/24 07:35 08/24/24 07:35 08/24/24 07:30 08/24/24 07:35
Intake and Output
08/23/24 08/24/24 08/25/24
06:59 06:59 06:59
Intake Total 1140 / 1140 120 / 120
Balance 1140 / 1140 120 / 120
SaO2 97
Nasal Cannula flow liters per 3
minute
Physical Exam
General: Comfortable
HEENT: Normocephalic
Cardiovascular: S1-S2
Respiratory: Crackles (Right base) and Non-Labored Respirations
GI: Soft and Non Distended
Neurology: Awake, Alert, Oriented, AO x 3 and No Motor Deficits
Labs/Micro/Reports
Lab Data
08/24/24 07:57
08/24/24 07:57
Microbiology
08/18/24 13:26 Blood/Venous Blood Culture - Final
No Growth - Final Report
08/18/24 13:26 Blood/Venous Blood Culture - Final
No Growth - Final Report
[2024-08-24 11:59] LABS: ACT-LR - POC 397 Seconds (116-155)
--- NOTE | 2024-08-24 12:05 | ITS.CL.ANGIO ---
Director Of Infection Control - Angioplasty
Angioplasty
Procedure Report:
CARDIAC CATHETERIZATION REPORT
Date of Procedure: 08/24/2024
Referring: Richie Christiansen M.D.
INDICATION: Nonsustained ventricular tachycardia.
PROCEDURE:
1. Left heart catheterization.
2. Coronary angiography.
3. Successful IVUS guided PCI of the left main coronary artery into the left circumflex.
ACCESS:
6 [place] right radial artery.
CATHETERS:
1. 5 [place] JR4.
2. 5 [place] JL 3.5.
3. 5 [place] TODD.
4. 6 [place] XB 3.0 guiding catheter.
HEMODYNAMIC DATA
Weight (kg): 46.7
AO (s/d/x, mmHg): 141/57/94
LV (s/x mmHg): 149/16
AV gradient (x, mmHg): 10.6
LEFT VENTRICULOGRAPHY: Not performed. A well-seated Medtronic CoreValve is present.
CORONARY ANGIOGRAPHY
Dominance: Right.
Left Main: Normal size, trifurcating vessel. There is a hazy, linear lucency extending into the left circumflex consistent with dissection.
LAD: Normal size vessel giving rise to several small diagonals. The vessel is at least moderately tortuous with luminal irregularities.
Ramus: Small to medium size vessel supplying the base of the anterolateral wall. There is no obvious coronary artery disease.
Circumflex: Large size, nondominant vessel giving rise to 2 obtuse marginals before terminating as a left posterolateral branch. There is severe tortuosity of the distal vessels. The linear hazy lucency extends from the left main into the
proximal vessel. There is a 30% lesion in the proximal vessel followed by luminal irregularities throughout the remainder of the body of the circumflex.
RCA: Nonselectively imaged given the obstruction by the TAVR valve. Normal size, dominant vessel. There are 30-40% lesions in the proximal vessel.
INTERVENTION(S)
1. 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
2. Successful IVUS guided PCI of the left main coronary artery into the proximal circumflex artery (Medtronic [place] 4.0 x 18 BAM, postdilated with a 4.0 x 12 NC balloon throughout and a 4.5 x 8 NC balloon in the left main coronary artery)
with stabilization of the dissection flap, maintaining REGULO-3 flow.
Narrative:
The decision was made to perform intracoronary imaging prior to intervention. The diagnostic catheter was removed over a wire and exchanged for 6 [place] XB 3.0 guiding catheter. The guiding catheter was advanced into the ascending aorta and seated
in the left main coronary artery. In order to avoid entering the dissection flap, the power turn flex wire was advanced into the left coronary cusp to partially disengage the XB catheter from the left main. With this partial disengagement, a BMW
wire was advanced into the left main coronary artery and then into the LAD. The tip of the wire was consistently free, suggesting that we were in the true lumen. After placing the BMW wire into the LAD, the power turn flex wire was withdrawn into
the catheter and the catheter. The power turn flex wire was then advanced into the left main then into the left circumflex. Additional heparin was given to obtain an ACT greater than 250 seconds. An IVUS catheter was advanced through the guiding
catheter and into the ostium of the artery. Ring down was performed once the imaging crystal was no longer inside of the guiding catheter. The IVUS catheter was advanced into the proximal circumflex. Intravascular ultrasound was performed in a
retrograde fashion using a slow pullback. Intracoronary imaging demonstrated some calcific atherosclerosis in the proximal vessel, followed by an echo lucency and demonstration of a false lumen primarily within the left main coronary artery. This
also confirmed placement of both wires in the true lumen. In spite of this confirmation, we did elect to proceed with IVUS of the LAD. This demonstrated that the LAD wire was also in the true lumen and that the dissection plane did not extend into
the LAD. Measurements of the circumflex and left main coronary artery were taken for stent sizing.
The decision was made to proceed with percutaneous coronary intervention. The IVUS catheter was removed and a Medtronic [place] 4.0 x 18 drug-eluting stent was advanced. Meticulous care was taken while positioning the stent, ensuring that
the entire dissection plane was covered and that the stent extended back to the proximal margin/ostium of the left main coronary artery. Once we were satisfied with the positioning, the stent was deployed at 12 atmospheres. The stent balloon was
removed.
The IVUS catheter was readvanced into the circumflex. This showed good stent apposition and expansion throughout the entire stented segment with some mild mall apposition in the left main due to relative stent undersizing to accommodate the
circumflex. Measurements of the left main coronary artery were repeated for post dilation balloon sizing.
The IVUS catheter was withdrawn. A 4.0 x 12 noncompliant balloon was advanced into the stent and the entire stent was postdilated to 14 atmospheres. The 4.0 x 12 noncompliant balloon was withdrawn and a 4.5 x 8 noncompliant balloon was advanced.
The distal left main coronary artery was postdilated to 14 tenzin. The ostial/proximal left main coronary artery was postdilated to 16 tenzin. The noncompliant balloon was removed. Angiography was performed in orthogonal views, confirming good stent
expansion and an excellent angiographic result. The power turn flex wire was pulled back into the left main artery and directed across the stent struts and into the LAD, demonstrating that the LAD was freely accessible percutaneously. The BMW wire
was removed from behind the stent and redirected into the circumflex, confirming that the circumflex was also easily accessible. The coronary wire was withdrawn and the guide was disengaged from the artery. The catheter was removed over a standard
J-wire.
Closure Device: Vascular band.
Radiation (mGy): 457.21
DAP (cm2.Gy): 23.8058
Fluoroscopy time (minutes): 24.2
Sedation time (minutes): 76
CONCLUSIONS
1. Right dominant circulation with a 30-40% lesion in the proximal RCA, a 30% lesion in the proximal circumflex, luminal irregularities throughout the rest of the coronary tree and a hazy, linear lucency in the left main coronary artery extending
into the circumflex consistent with left main coronary artery dissection, confirmed on IVUS imaging.
2. Successful IVUS guided PCI of the left main coronary artery into the left circumflex with stabilization of the dissection (Medtronic [place] 4.0 x 18 BAM, postdilated with a 4.0 x 12 NC balloon throughout and a 4.5 x 8 NC balloon in the
left main coronary artery), maintaining REGULO-3 flow.
3. Status post Medtronic CoreValve TAVR, well-seated without evidence of stenosis.
4. Mildly elevated filling pressures (LVEDP = 16 mmHg at 46.7 kg).
5. Severe, oxygen dependent COPD.
RECOMMENDATIONS:
1. Expectant management after cardiac catheterization via right radial approach.
2. Limited weight bearing on the right wrist for one week.
3. Dual antiplatelet therapy with aspirin clopidogrel for at least 12 months, likely lifelong given the position of the stent.
4. Continue aggressive secondary prevention with high-dose, high potency statin.
5. Guideline directed medical therapy as hemodynamics will tolerate.
6. Repeat echocardiogram.
7. Treatment of primary pulmonary disease.
Copy to: Farhat Soriano M.D., Richie Christiansen M.D., Marta West M.D.
Terence Hernandez DO, FACC, FACP
[2024-08-24] MEDS: LIPITOR 40 MG PO (12:49)
[2024-08-24] MEDS: LASIX 20 MG PO (12:49)
[2024-08-24] MEDS: CARDIZEM CD 360 MG PO (12:49)
[2024-08-24] MEDS: VIBRAMYCIN 100 MG PO ×2 (12:49→20:06)
[2024-08-24] MEDS: DELTASONE 40 MG PO (12:52)
[2024-08-24] MEDS: LEXAPRO 20 MG PO (12:52)
[2024-08-24] MEDS: NSS 1000 IV (12:59)
[2024-08-24] MEDS: LANOXIN 250 MCG PO (13:07)
--- NOTE | 2024-08-24 14:41 | CM ---
Chart reviewed. Patient is independent of ADLS, lives with her daughter and family in a split level home, 6 FAHAD, 0 DME. PT evalution recommending VN. Patient agreeable. Referral sent to [facility]. [facility]
CM to follow
--- NOTE | 2024-08-24 18:57 | PTCARENOTE ---
Pt transferred from [facility] post cardiac cath done via right radial artery. Additional 3mls air inserted into radial band soon after arrival in IVU. Multiple attempts to remove air from radial band as ordered starting 2 hours after band placement but
instant oozing. Margaret Herndon, JAZZY and aware. Able to remove 1ml air at a time, order to take as long as needed even leaving band on overnight if necessary. Right radial site ecchymotic, no hematoma, strong radial pulse with warm fingers, pt
denies any discomfort. Pt OOB with supervision to bathroom. Telemetry shows sinus rhythm with LBBB, no ectopy noted. Pt on aspiration precautions for dysphagia, pt taking meds with applesauce and eating soft and bite sized diet without problem.
[2024-08-24] MEDS: LOVENOX SC (19:30)
[2024-08-24] MEDS: ROCEPHIN 1000 MG IV (20:06)
[2024-08-24] MEDS: STERILE WATER FOR INJECTION 10 ML IV (20:06)
--- NOTE | 2024-08-24 22:40 | PTCARENOTE ---
Pt rec'd at shift change surrounded by family. Right radial band in place. Slowly reduced of air over couple hours. band off at 2200. min swelling noted above puncture site, no hematoma + pulse.
Sinus on telemetry.
[2024-08-25] VITALS (7 sets, daily range): BP systolic 134–172; BP diastolic 46–93; BMI 20.1
[2024-08-25] MEDS: SYNTHROID 50 MCG PO (05:28)
[2024-08-25 06:06] LABS: Hematocrit 32.7 % (37.0-47.0); Hemoglobin 10.7 g/dL (12.0-16.0); Mean Corp Hgb Conc. 32.7 g/dL (33.0-37.0); Mean Corpuscular Hgb 31.4 pg (27.0-31.0); Mean Corpuscular Volume 95.9 fL (81.0-99.0); Mean Platelet Volume 11.3 fL (7.4-10.4); Platelet Count 149 10^3/uL (130-400); Red Blood Cell Count 3.41 10^6/uL (4.20-5.40); White Blood Cell Count 6.2 10^3/uL (4.8-10.8)
[2024-08-25 06:26] LABS: Blood Urea Nitrogen 36 mg/dl (7-17); Calcium 8.8 mg/dl (8.4-10.2); Carbon Dioxide 40 mmol/L (22-30); Chloride 99 mmol/L (98-107); Estimated Creatinine Clearance 57 ml/min; Glucose 80 mg/dl (70-99); Potassium 4.2 mmol/L (3.5-5.1); Sodium 141 mmol/L (135-145); eGFR > 60.00
[2024-08-25] MEDS: SYMBICORT 160/4.5 MCG INHALER 2 PUFF INH ×2 (07:04→19:59)
[2024-08-25] MEDS: ASPIR LOW (ENTERIC COATED) 81 MG PO (08:43)
[2024-08-25] MEDS: PLAVIX 75 MG PO (08:43)
[2024-08-25] MEDS: LEXAPRO 20 MG PO (08:43)
[2024-08-25] MEDS: VIBRAMYCIN 100 MG PO ×2 (08:43→19:49)
[2024-08-25] MEDS: DELTASONE 30 MG PO (08:43)
[2024-08-25] MEDS: LIPITOR 40 MG PO (08:44)
[2024-08-25] MEDS: LASIX 20 MG PO (08:44)
[2024-08-25] MEDS: CARDIZEM CD 360 MG PO (08:44)
--- NOTE | 2024-08-25 08:50 | W.PN.CD ---
Today's Communication / Plan
-
cont ASA/Plavix
trend tele
Impression / Plan
-
CAD
-evidence of LM dissection s/p stenting 08/24
-ASA/Plavix/statin
-watch one more day
PACs and Short runs of AT
- improved with increased diltiazem to 360mg daily, and addition of digoxin 250mcg daily
NSVT
-per EP recs
- None in several days
- Normal LVEF by echo 08/2024
- No syncope
- No indication for EPS/ICD
PNA:
-Continue antibiotics as per primary team.
HFpEF: chronic
-Fairly compensated on examination.
-Continue Lasix 20 mg PO daily.
- As outpatient Dr. Soriano will likely add an SGLT-I and an MRA and perhaps ARB or ARNI
COPD:
-On breathing tx and steroids; management as per Pulmonary.
LBBB: chronic.
TAVR:
-stable by echo
Subjective:
No palps or CP.
Physical Exam
Vital Signs/Labs
Vital Signs
Temp Pulse Resp BP Pulse Ox
98.1 F 75 18 164/55 99
08/25/24 07:46 08/25/24 07:45 08/25/24 07:46 08/25/24 07:40 08/25/24 07:48
08/24/24 08/25/24 08/26/24
06:59 06:59 06:59
Actual Weight 46.7 kg
08/25/24 05:16
08/25/24 05:16
Magnesium 2.0 mg/dl (1.6-2.3) 08/23/24 07:56
Free T4 1.29 ng/dl (0.78-2.19) 08/22/24 07:31
09/30/24
14:01
[id number]-[id number] Pept 9070
Physical Exam
Constitutional: No acute distress and Comfortable
EENT: Moist mucous membranes
Cardiovascular: Rhythm & rate is regular, Pedal edema is absent, JVD pressure is normal and Systolic murmur absent
Respiratory: Respiratory effort normal
Neuro/Psych: AO x 3
Data Reviewed
-
Date of Service: August 25, 2024
EKG: Other (Tele: SR 70s)
Labs: Labs Reviewed by me
--- NOTE | 2024-08-25 12:41 | W.PN.HOSP.TC ---
Today's Communication/Plan
-
monitor as per cardio overnight. If stable - plan to d/c
Assessment / Plan
Assessment / Plan
78yo F with PMHx of COPD with chronic hypoxic respiratory failure on 3L home O2, osteoporosis, Hx of TAVR, HLD, HFpEF, hypothyroidism came with worsening SOB, found pneumonia, complicated by CHF and COPD. LAter developed frequent runs of VT,
cardiology did cardiac cath on 08/24/24, found coronary artery dissection - stent placed, cont DAPT.
A/P:
#Hypothyroidism
#Paroxysmal VT
electrolytes to follow
telemetry
Cardio consult: increased Cardizem, started digoxin, plan for ischemia w/u - cardiac cath on 08/24/24 found coronary artery dissection - stent placed, cont DAPT
TSH mildly depressed - decrease Synthroid, repeat TSH in 2-3 weeks
#Acute on chronic hypoxic and hypercapnic respiratory failure 2/2 RLL pneumonia with unspecified organism
#Pharyngitis
#Acute COPD exacerbation
#Moderate pulmonary HTN
# s/p TAVR
#Acute on chronic HFpEF exacerbation
#Small R pleural effusion
GAS screen neg
Bcx neg
COVID-19, influenza PCR neg
COnt ROcephin/DOxy plan 7-10 days total (with effusions)
Taper steroids
Pulm consult: pneumonic effusion, too small for thoracentesis. Repeat CT chest in 2-3 weeks - patient and daughter verbalized understanding
cont bronchodilators
Lasix IV since ProBNP elevated, Echo showed well seated AV, mild MR
CT chest neg for PE, however Right lower lobe consolidation and small parenchymal opacity in the central right lower lobe which could also represent pneumonia, cannot exclude small mass. Recommend short-term follow-up Chest CT to confirm resolution.
Stable 4 mm left lower lobe pulmonary nodule.
#Carotid stenosis
#Descending thoracic aortic stent
followed by as outpatient, monitoring
#Chronic headaches with pontine calcification on CT in 2019
Recommended MRI of the brain at that time - same recommended now to daughter - she verbalized understanding and will follow with PCP
#Elevated ddimer
CT neg for PE
LE US neg for DVT
#ANTHONY
cont nocturnal cpap
#Chronic dysphagia with silent aspiration
crush meds as possible
PATTERNMAKER WOOD consult
VSE showed silent aspiration of the liquids via straw - recommended regular with thin by cup with small sips and meds in puree
#Thrombocytopenia, reactive, improving
#Transaminitis
chronic
check hepatitis panel
Outpatient GI follow up for US
#anxiety d/o
cont home meds
DVT ppx Lovenox
Full code
I have spent at least 58min reviewing chart, test results, communication with consultants and direct patient care
Anticipated Discharge: Within 24 hours
Subjective/Interval History
-
Date of Service: August 25, 2024
Objective Data
-
Labs:
Laboratory Results
08/25/24
05:16
WBC 6.2
Hgb 10.7 L
Hct 32.7 L
Plt Count 149
Sodium 141
Potassium 4.2
Chloride 99
Carbon Dioxide 40 H
BUN 36 H
Creatinine 0.6
Glucose 80
Calcium 8.8
Vital Signs:
Vital Signs
Temp Pulse Resp BP Pulse Ox
98.1 F 83 18 138/53 98
08/25/24 11:30 08/25/24 12:00 08/25/24 11:30 08/25/24 11:59 08/25/24 11:30
I&O
08/24/24 08/25/24 08/26/24
06:59 06:59 06:59
Intake Total 120 / 120 590 / 590
Balance 120 / 120 590 / 590
Review of Systems
-
History Source: Patient
All other systems: Reviewed and negative
Physical Exam
-
General: No Apparent Distress
HEENT: Normocephalic
Respiratory: Clear to Auscultation; Negative Wheezes
GI: Soft, Nontender and Nondistended
Musculoskeletal: No Clubbing, No Cyanosis and No Edema
Neuro: Awake, Alert, Oriented and AO x 3
[2024-08-25] MEDS: LANOXIN 250 MCG PO (13:13)
[2024-08-25] MEDS: LOVENOX 30 MG SC (17:54)
--- NOTE | 2024-08-25 19:34 | PTCARENOTE ---
Pt OOB to chair for most of the day. Pt reported a brief episode of feeling lightheaded while sitting in a chair, BP 130/70,completely resolved. Telemetry showed sinus rhythm with LBBB, rare PVC noted.
[2024-08-25] MEDS: STERILE WATER FOR INJECTION 10 ML IV (19:49)
[2024-08-25] MEDS: ROCEPHIN 1000 MG IV (19:49)
--- NOTE | 2024-08-25 20:52 | PTCARENOTE ---
Pt rec'd at change of shift sitting in recliner chair finishing up her dinner. Tolerating soft foods without cough.Assisted to bathroom to void, gait steady.
O2 at 3 lit n/c continued minimal ROTH noted. Pt did c/o sores on her tongue no thrush noted on tongue or back of throat. [place] ASSISTANT AUDITOR made aware. Pt states she usually takes Valtrex. [place] Product Support Manager wrote for Oragel. Awaiting dose from pharmacy
[2024-08-25] MEDS: ORAJEL 10% GEL 1 APPLIC TOPICAL (22:19)
--- NOTE | 2024-08-25 22:36 | PTCARENOTE ---
Pt assisted to bed after going to bathroom. remains on O2 at 3 lit n/c. Pt not ready to go on cpap yet for the night. Oragel applied to pts lips and tongue.Remains sinus on telemetry with BBB. call bautista within reach.
[2024-08-26 06:00] VITALS: BMI 20.2
[2024-08-26 06:11] VITALS: BP 171/69
[2024-08-26] MEDS: SYNTHROID 50 MCG PO (06:20)
[2024-08-26] MEDS: SYMBICORT 160/4.5 MCG INHALER 2 PUFF INH (07:08)
[2024-08-26 07:37] VITALS: BP 151/49
[2024-08-26] MEDS: DELTASONE 30 MG PO (08:49)
[2024-08-26] MEDS: CARDIZEM CD 360 MG PO (08:50)
[2024-08-26] MEDS: PLAVIX 75 MG PO (08:50)
[2024-08-26] MEDS: ASPIR LOW (ENTERIC COATED) 81 MG PO (08:50)
[2024-08-26] MEDS: LEXAPRO 20 MG PO (08:50)
[2024-08-26] MEDS: VIBRAMYCIN 100 MG PO (08:50)
[2024-08-26] MEDS: LIPITOR 40 MG PO (08:50)
[2024-08-26] MEDS: LASIX 20 MG PO (08:50)
[2024-08-26] MEDS: ORAJEL 10% GEL 1 APPLIC TOPICAL (08:51)
[2024-08-26 11:09] VITALS: BP 146/65
--- NOTE | 2024-08-26 11:26 | W.PN.HOSP.TC ---
Today's Communication/Plan
-
DC
Assessment / Plan
Assessment / Plan
78yo F with PMHx of COPD with chronic hypoxic respiratory failure on 3L home O2, osteoporosis, Hx of TAVR, HLD, HFpEF, hypothyroidism came with worsening SOB, found pneumonia, complicated by CHF and COPD. LAter developed frequent runs of VT,
cardiology did cardiac cath on 08/24/24, found coronary artery dissection - stent placed, cont DAPT. Arrhythmia episodes resolved. Cardiology agreable with discharge plan. Daughter was called and was informed on follow up instructions. Medically
stable for d/c
A/P:
#Hypothyroidism
#Paroxysmal VT
electrolytes to follow
telemetry
Cardio consult: increased Cardizem, started digoxin, plan for ischemia w/u - cardiac cath on 08/24/24 found coronary artery dissection - stent placed, cont DAPT
TSH mildly depressed - decrease Synthroid, repeat TSH in 2-3 weeks
#Acute on chronic hypoxic and hypercapnic respiratory failure 2/2 RLL pneumonia with unspecified organism
#Pharyngitis
#Acute COPD exacerbation
#Moderate pulmonary HTN
# s/p TAVR
#Acute on chronic HFpEF exacerbation
#Small R pleural effusion
GAS screen neg
Bcx neg
COVID-19, influenza PCR neg
COnt ROcephin/DOxy plan 7-10 days total (with effusions)
Taper steroids
Pulm consult: pneumonic effusion, too small for thoracentesis. Repeat CT chest in 2-3 weeks - patient and daughter verbalized understanding
cont bronchodilators
Lasix IV since ProBNP elevated, Echo showed well seated AV, mild MR
CT chest neg for PE, however Right lower lobe consolidation and small parenchymal opacity in the central right lower lobe which could also represent pneumonia, cannot exclude small mass. Recommend short-term follow-up Chest CT to confirm resolution.
Stable 4 mm left lower lobe pulmonary nodule.
#Carotid stenosis
#Descending thoracic aortic stent
followed by as outpatient, monitoring
#Chronic headaches with pontine calcification on CT in 2019
Recommended MRI of the brain at that time - same recommended now to daughter - she verbalized understanding and will follow with PCP
#Elevated ddimer
CT neg for PE
LE US neg for DVT
#ANTHONY
cont nocturnal cpap
#Chronic dysphagia with silent aspiration
crush meds as possible
APPLICATION OPERATIONS ENGINEER consult
VSE showed silent aspiration of the liquids via straw - recommended regular with thin by cup with small sips and meds in puree
#Thrombocytopenia, reactive, improving
#Transaminitis
chronic
check hepatitis panel
Outpatient GI follow up for US
#anxiety d/o
cont home meds
DVT ppx Lovenox
Full code
I have spent at least 58min reviewing chart, test results, communication with consultants and direct patient care
Anticipated Discharge: Today
Subjective/Interval History
-
Date of Service: August 26, 2024
Objective Data
-
Vital Signs:
Vital Signs
Temp Pulse Resp BP Pulse Ox
98.5 F 69 20 151/49 98
08/26/24 07:35 08/26/24 08:30 08/26/24 07:35 08/26/24 07:37 08/26/24 08:59
I&O
08/25/24 08/26/24 08/27/24
06:59 06:59 06:59
Intake Total 590 / 590 120 / 120
Balance 590 / 590 120 / 120
Review of Systems
-
History Source: Patient
All other systems: Reviewed and negative
Physical Exam
-
General: No Apparent Distress
HEENT: Normocephalic and Atraumatic
Respiratory: Wheezes
Cardiac: Regular Rhythm; Negative Murmur
GI: Soft, Nontender and Nondistended
Musculoskeletal: No Clubbing, No Cyanosis and No Edema
Neuro: Awake, Alert, Oriented and AO x 3
Psych: Calm
[2024-08-26 11:35] VITALS: BP 146/65; PULSE 84; O2SAT 97
--- NOTE | 2024-08-26 11:38 | W.PN.CD ---
Today's Communication / Plan
-
discharge planning on current cardiac regimen
please call us with additional questions
Impression / Plan
-
CAD
-evidence of LM dissection s/p stenting 08/24
-ASA/Plavix/statin
-discharge planning
PACs and Short runs of AT
- improved with increased diltiazem to 360mg daily, and addition of digoxin 250mcg daily
NSVT
-per EP recs
- None in several days
- Normal LVEF by echo 08/2024
- No syncope
- No indication for EPS/ICD
PNA:
-Continue antibiotics as per primary team.
HFpEF: chronic
-Fairly compensated on examination.
-Continue Lasix 20 mg PO daily.
COPD:
-On breathing tx and steroids; management as per Pulmonary.
LBBB: chronic.
TAVR:
-stable by echo
Subjective:
No palps or CP.
Physical Exam
Vital Signs/Labs
Vital Signs
Temp Pulse Resp BP Pulse Ox
98.5 F 69 20 151/49 98
08/26/24 07:35 08/26/24 08:30 08/26/24 07:35 08/26/24 07:37 08/26/24 08:59
08/25/24 08/26/24 08/27/24
06:59 06:59 06:59
Actual Weight 46.7 kg 46.9 kg
08/25/24 05:16
08/25/24 05:16
Magnesium 2.0 mg/dl (1.6-2.3) 08/23/24 07:56
Free T4 1.29 ng/dl (0.78-2.19) 08/22/24 07:31
08/20/24
14:01
Lzz-A-Zyguiyizomx Pept 9070
Physical Exam
Constitutional: No acute distress and Comfortable
EENT: Moist mucous membranes
Cardiovascular: Rhythm & rate is regular, Pedal edema is absent, JVD pressure is normal and Systolic murmur absent
Neuro/Psych: AO x 3
Data Reviewed
-
Date of Service: August 26, 2024
EKG: Other (Tele: SR 60s, brief SVT)
Labs: Labs Reviewed by me
[2024-08-26 11:41] VITALS: BP 140/47
--- NOTE | 2024-08-26 11:41 | W.DCSUMMARY ---
Discharge Summary
Discharge Data
Date of Admission: 08/18/24
Date of Discharge: 08/26/24
-
Pending Results: No
Hospital Course
78yo F with PMHx of COPD with chronic hypoxic respiratory failure on 3L home O2, osteoporosis, Hx of TAVR, HLD, HFpEF, hypothyroidism came with worsening SOB, found pneumonia, complicated by CHF and COPD. LAter developed frequent runs of VT,
cardiology did cardiac cath on 08/24/24, found coronary artery dissection - stent placed, cont DAPT. Arrhythmia episodes resolved. Cardiology agreable with discharge plan. Daughter was called and was informed on follow up instructions. Recommended
MRI of the brain previously in 2019 - same recommended now to daughter, repeat TSH in 2-3 weeks with PCP and Repeat CT chest in 2-3 weeks with established qa developer
Medically stable for d/c
I have spent at least 37min discharging the patient
Patient was managed for::
#Hypothyroidism
#Paroxysmal VT
#Acute on chronic hypoxic and hypercapnic respiratory failure 2/2 RLL pneumonia with unspecified organism
#Pharyngitis
#Acute COPD exacerbation
#Moderate pulmonary HTN
# s/p TAVR
#Acute on chronic HFpEF exacerbation
#Small R pleural effusion
#Coronary dissection
#Carotid stenosis
#Descending thoracic aortic stent
#Chronic headaches with pontine calcification on CT in 2019
#Elevated ddimer
#ANTHONY
#Chronic dysphagia with silent aspiration
#Thrombocytopenia, reactive
#Transaminitis - possible fatty liver, since chronic
Discharge Plan
-
Patient Disposition: Home (Routine Discharge)
Discharge Diagnosis/Procedures: Angioplasty and stent to Left Main artery
Diet: Other diet
Additional Diets: Soft and chopped, no straw, drink liquid from cups with small sips
Activity: As tolerated
Driving Restrictions: As prior to admission
Other Services: ST and Cardiac Rehab
Stand Alone Forms: DC Instructions- Cath/EP Lab
Referrals:
[facility] [Outside] - 09/24/24 1:00 pm
(Cardiac Rehab Orientation appointment and� First Exercise appointment is on Tuesday09/24/24 at 1pm.
The Cardiac Rehab gym is located on the first floor of the [facility].)
[facility] [Outside]
Jose Vale MD [Active] - in two to three weeks (May see REHABILITATION COORDINATOR)
Farhat Soriano MD [Active] - 09/28/24 3:20 pm (Cardiology followup appointment)
Marta West MD [Family Provider] - in two to four weeks (repeat TSH)
Prescriptions:
New
nystatin 100,000 unit/mL Suspension
5 ml PO QID 7 Days Qty: 150 0RF
doxycycline hyclate 100 mg Capsule
100 mg PO Q12 Qty: 6 0RF
diltiazem HCl 180 mg Capsule,Extended Release 24hr
360 mg PO DAILY Qty: 30 0RF
digoxin 250 mcg (0.25 mg) Tablet
250 mcg PO NOON Qty: 30 0RF
levothyroxine 50 mcg Tablet
50 mcg PO DAILY @ 0600 Qty: 30 0RF
cefdinir 300 mg capsule
300 mg PO BID Qty: 6 0RF
prednisone 10 mg tablet
10 mg PO DIRECTED Qty: 12 0RF
Rx Instructions:
take daily 30mg for 2 days, then 20mg for 2 days, then 10mg for 2 days and stop
Continued
alendronate 70 MG tablet
70 mg PO ALEXANDER
aspirin 81 MG tablet,delayed release (DR/EC)
81 mg PO DAILY
multivitamin with folic acid [Tab-A-Lizeth] 1 TABLET tablet
1 tab PO DAILY
furosemide 20 MG tablet
20 mg PO DAILY Qty: 30 0RF
albuterol sulfate 2.5 MG/3 ML solution for nebulization
2.5 mg inhalation R Q4HPRN PRN (Reason: sob) Qty: 3 0RF
atorvastatin 40 mg Tablet
40 mg PO DAILY
clopidogrel 75 mg Tablet
75 mg PO DAILY
escitalopram oxalate 20 mg Tablet
20 mg PO DAILY
budesonide-formoterol [Symbicort] 160-4.5 mcg/actuation Hfa Aerosol Inhaler
2 puff INHALATION R BID
Spiriva Respimat 2.5 mcg/actuation Mist
2 inh INHALATION R DAILY
Discontinued
levothyroxine 75 MCG tablet
75 mcg PO SUMOWEFR
levothyroxine 50 MCG tablet
50 mcg PO TUTHSA
diltiazem HCl 180 MG capsule,extended release 24hr
180 mg PO DAILY
Discharge Orders:
Discharge Patient (As Directed); Ordered 08/26/24
Ordered By: Bear Colvin
Care Plan Goals
Care Plan Goals:
Problem: Readiness for enhanced knowledge related to diagnosis and treatment plan
Goal: Understand your diagnosis and treatment plan needs, including medications if applicable.
Instructions: Know your diagnosis, underlying causes and treatment plan options, including medications if applicable. Consult with your health care team to learn about your diagnosis and treatment plan, including medications if applicable.
Discharge Date and Time
Print Language: TURKISH
[2024-08-26] MEDS: MYCOSTATIN ORAL SUSPENSION 5 ML PO (11:42)
[2024-08-26] MEDS: LANOXIN 250 MCG PO (11:42)
[2024-08-26] MEDS: FLUAD (65 yr+) 2024-2025 FORMULA 0.5 ML IM (11:43)
--- NOTE | 2024-08-26 13:36 | W.PN.UPDATE ---
Update Note
Progress Note Update
EKG done on the day of d/c reviewed with truck loader and unloader and deemed to be stable in the settings of LBBB
--- NOTE | 2024-08-26 15:04 | PTCARENOTE ---
Pt seen by Drs. Nunes and Vinicius. Pt reported one episode of nausea which she stated was 'why she came in to the hospital'. notified , ECG was done and reviewed with no new changes, nausea resolved. Pt walked in halls and on stairs with PT.
Telemetry and IV device removed. Discharge instructions reviewed with pt regarding activity and driving guidelines, wound care, medications and their possible side effects, aspiration precautions and taking medications whole with applesauce at
home,reporting cares and concerns and follow up appt's. Very good understanding verbalized. Pt escorted out via wheelchair wearing her home oxygen adn discharged to home. [facility]
== END 2024-08-26 13:40 | disposition home health service (06) | DRG 981 ==
LOC: IVU 13:51
PROVIDERS: Internal Medicine; Internal Medicine Cardiovascular Disease; Nurse Practitioner; Nurse Practitioner Gerontology; ADMITTING PHYSICIAN Hospitalist; ATTENDING PHYSICIAN Internal Medicine; CONSULT PHYSICIAN Internal Medicine; CONSULT PHYSICIAN Internal Medicine Critical Care Medicine; EMERGENCY PHYSICIAN Emergency Medicine; FAMILY PHYSICIAN Family Medicine
PROC: B2151ZZ Fluoroscopy of Left Heart using Low Osmolar Contrast (ICD-10-PCS; 2024-08-24)
PROC: B2111ZZ Fluoroscopy of Multiple Coronary Arteries using Low Osmolar Contrast (ICD-10-PCS; 2024-08-24)
PROC: 4A023N7 Measurement of Cardiac Sampling and Pressure, Left Heart, Percutaneous Approach (ICD-10-PCS; 2024-08-24)
PROC: B240ZZ3 Ultrasonography of Single Coronary Artery, Intravascular (ICD-10-PCS; 2024-08-24)
PROC: 027034Z Dilation of Coronary Artery, One Artery with Drug-eluting Intraluminal Device, Percutaneous Approach (ICD-10-PCS; 2024-08-24)
DX: J18.9 Pneumonia, unspecified organism (principal); I25.42 Coronary artery dissection; I50.33 Acute on chronic diastolic (congestive) heart failure; J96.21 Acute and chronic respiratory failure with hypoxia; J96.22 Acute and chronic respiratory failure with hypercapnia; J44.0 Chronic obstructive pulmonary disease with (acute) lower respiratory infection; J44.1 Chronic obstructive pulmonary disease with (acute) exacerbation; I47.20 Ventricular tachycardia, unspecified; Z87.891 Personal history of nicotine dependence; I11.0 Hypertensive heart disease with heart failure; I25.10 Atherosclerotic heart disease of native coronary artery without angina pectoris; E03.9 Hypothyroidism, unspecified; F32.A Depression, unspecified; F41.9 Anxiety disorder, unspecified; I44.7 Left bundle-branch block, unspecified; I27.20 Pulmonary hypertension, unspecified; I65.29 Occlusion and stenosis of unspecified carotid artery; D69.6 Thrombocytopenia, unspecified; Z11.52 Encounter for screening for COVID-19
CPT/HCPCS: 71045; 71046; 71275; 74230; 80048; 80053; 83605; 83735; 83880; 84439; 84443; 85025; 85027; 85347; 85379; 86704; 86706; 86803; 87040; 87070; 87340; 87502; 87811; 87880; 90662; 92526; 92610; 92611; 92978; 92979; 93005; 93306; 93458; 93970; 94640; 94667; 94668; 96361; 96374; 96375; 97116; 97162; 97166; 97530; 97535; 99285; C1725; C1753; C1769; C1874; C1887; C1894; C9600; G0008; Q9967

== ENCOUNTER 2024-09-13 19:51 | Emergency (ER) | payer OTHER, SELFPAY ==
[2024-09-13 19:54] VITALS: BP 147/48
--- NOTE | 2024-09-13 22:07 | ED.GENMED ---
History of Present Illness
General
Chief Complaint: Nose Bleed
Source: patient, records and family
Exam Limitations: none
Time Seen by Provider: 09/13/24 21:39
Nursing documentation reviewed up to this point in time: agreed with
History of Present Illness
History of Present Illness:
78-year-old female left-sided nosebleed since 5 PM uses oxygen chronically recently admitted with a cardiac event looks like she was started on Plavix in addition to aspirin went to her PCP they could not cauterize it because there was oxygen
running into her nose, here she has oozing from her left nare no other systemic bleeding she is chronically ill with multiple chronic medical conditions
Past History
Past History
ED Past Medical History: CHF, COPD, Valvular disease (Aortic stenosis), Hypothyroidism and Other (Psoriasis)
ED Past Surgical History: Gynecological (Tubal ligation)
Social History
Tobacco: Former smoker
Alcohol: None
Drug: None
Personal:
Living: with family
Review of Systems
Review of Systems
All Other Systems: Not applicable
EENT: Reports other (Nosebleed)
Respiratory: Reports trouble breathing (Chronic)
Phy Exam
Physical Exam
Physical Exam:
Physical Exam
General: Chronically ill nontoxic
Neck: Oozing from the left medial nare
Lungs: no acute respiratory distress.
Neuro: alert and oriented. no focal neurological deficits
Skin: no rash
Psychiatric: well kept. interactive and cooperative
Extremities: no edema.
Course
Vital Signs
Initial and Last Documented VS:
Initial Vital Signs
Temp Pulse Resp BP Pulse Ox
97.8 F 73 18 147/48 94
09/13/24 19:54 09/13/24 19:54 09/13/24 19:54 09/13/24 19:54 09/13/24 19:54
Last Documented Vital Signs
Temp Pulse Resp BP Pulse Ox
97.8 F 64 18 144/41 99
09/13/24 19:54 09/13/24 22:18 09/13/24 22:18 09/13/24 22:18 09/13/24 22:18
Procedures
Nosebleed
Drug treatment: Epinephrine
Treatment: local pressure applied and Silver nitrate cautery
Post treatment bleeding: none- good control
MDM/Problems Addressed
Differential Diagnosis Includes:
Nosebleed
MDM/Problems Addressed:
Nosebleed
Chronic conditions affecting care: CAD
Acute Exacerbation and/or Progression of Chronic Illness: CAD
*Critical Care Note
Total Time (30-74mins, 75-104mins- exclusive of procedures): Not Applicable
Update Note
Update Note:
Oxygen placed in her mouth, will try to cauterize her nose, this could be a recurrent issue if she is on oxygen and on double antiplatelet therapy
Family concerned about her blood pressure being low old records reviewed has been low previously(diastolic)
Not significant mental bleeding witnessed here
Family concerned about her nasal cannula on and off anything else is available last respiratory significant for simple mask
Bleeding controlled with above measures 1-2 little drops of blood controlled with cottonball which she could remove tomorrow
ED Attending Note
-
Portions of this chart may have been created with voice recognition software.� Occasional wrong word or��sound alike� substitutions may have occurred due to the inherent limitations of voice recognition software.
Discharge Plan
Departure
Patient Disposition: Home (Routine Discharge)
Date of Disposition: 09/13/24
Time of Disposition: 23:23
Patient with high blood pressure during this ER visit?: No
Condition: Good
Covid-19: Not Applicable
Discharge Problem:
Oxygen dependent, Epistaxis
Instructions: Nosebleeds (DC)
Prescriptions:
No Action
alendronate 70 MG tablet
70 mg PO ALEXANDER
aspirin 81 MG tablet,delayed release (DR/EC)
81 mg PO DAILY
multivitamin with folic acid [Tab-A-Lizeth] 1 TABLET tablet
1 tab PO DAILY
furosemide 20 MG tablet
20 mg PO DAILY Qty: 30 0RF
albuterol sulfate 2.5 MG/3 ML solution for nebulization
2.5 mg inhalation R Q4HPRN PRN (Reason: sob) Qty: 3 0RF
atorvastatin 40 mg Tablet
40 mg PO DAILY
clopidogrel 75 mg Tablet
75 mg PO DAILY
escitalopram oxalate 20 mg Tablet
20 mg PO DAILY
budesonide-formoterol [Symbicort] 160-4.5 mcg/actuation Hfa Aerosol Inhaler
2 puff INHALATION R BID
Spiriva Respimat 2.5 mcg/actuation Mist
2 inh INHALATION R DAILY
nystatin 100,000 unit/mL Suspension
5 ml PO QID 7 Days Qty: 150 0RF
doxycycline hyclate 100 mg Capsule
100 mg PO Q12 Qty: 6 0RF
diltiazem HCl 180 mg Capsule,Extended Release 24hr
360 mg PO DAILY Qty: 30 0RF
digoxin 250 mcg (0.25 mg) Tablet
250 mcg PO NOON Qty: 30 0RF
levothyroxine 50 mcg Tablet
50 mcg PO DAILY @ 0600 Qty: 30 0RF
cefdinir 300 mg capsule
300 mg PO BID Qty: 6 0RF
prednisone 10 mg tablet
10 mg PO DIRECTED Qty: 12 0RF
Rx Instructions:
take daily 30mg for 2 days, then 20mg for 2 days, then 10mg for 2 days and stop
Referrals:
Marta West MD [Family Provider] -
Activity Restrictions/Additional Instructions:
You can remove cottonball tomorrow when you wake up
If bleeding returns Place cottonball and hold pressure for 20 minutes
Interventions
Interventions:
ED-EENT Assessment Last Done: 09/13/24 22:19
Discharge Date and Time
Print Language: URDU
[2024-09-13 22:18] VITALS: BP 144/41
== END 2024-09-13 23:49 | disposition home or self-care (01) ==
LOC: EMR 19:51
PROVIDERS: EMERGENCY PHYSICIAN Emergency Medicine; FAMILY PHYSICIAN Family Medicine
DX: Z99.81 Dependence on supplemental oxygen (principal); R04.0 Epistaxis; I50.9 Heart failure, unspecified; J44.9 Chronic obstructive pulmonary disease, unspecified; I38 Endocarditis, valve unspecified; I35.0 Nonrheumatic aortic (valve) stenosis; E03.9 Hypothyroidism, unspecified; L40.9 Psoriasis, unspecified; I25.10 Atherosclerotic heart disease of native coronary artery without angina pectoris; Z79.02 Long term (current) use of antithrombotics/antiplatelets; Z87.891 Personal history of nicotine dependence; Z98.51 Tubal ligation status
CPT/HCPCS: 99283

== ENCOUNTER → 2024-09-20 15:25 | Outpatient (REF) | payer OTHER, SELFPAY | LOC: RAD 15:25 | PROVIDERS: ATTENDING PHYSICIAN Family Medicine | DX: Z87.01 Personal history of pneumonia (recurrent) (principal) | CPT/HCPCS: 71046 ==

== ENCOUNTER → 2024-10-10 15:04 | Outpatient (REF) | payer OTHER, SELFPAY | LOC: RAD 15:04 | PROVIDERS: ATTENDING PHYSICIAN Surgery Vascular Surgery | DX: I65.21 Occlusion and stenosis of right carotid artery (principal) | CPT/HCPCS: 93880 ==

== ENCOUNTER → 2024-10-19 11:26 | Outpatient (REF) | payer OTHER, SELFPAY | LOC: RAD 11:26 | PROVIDERS: ATTENDING PHYSICIAN Nurse Practitioner Adult Health; FAMILY PHYSICIAN Family Medicine | DX: J18.9 Pneumonia, unspecified organism (principal) | CPT/HCPCS: 71250 ==

== ENCOUNTER 2024-10-26 13:31 | Emergency (ER) | payer OTHER, SELFPAY ==
--- NOTE | 2024-10-26 13:39 | ED.GENMED ---
ED Provider Triage
<Steph Adkins NP - Last Filed: 10/26/24 13:45>
-
Patient seen by provider in Triage?: Seen in Triage
Attestation: A medical screening examination has been initiated by a qualified medical provider. Based on the assessment performed at this time, it has been determined that an emergent medical condition may exist and the patient has been informed
that further medical evaluation and possible additional diagnostic testing may be needed.
HPI: 79-year-old female with hx cardiac stent 08/2024, TAVR, COPD on O2 3 L nasal cannula at home, presents for 'tightness in the chest,' cough, fatigue. She states she typically has chest tightness off and on but it has been worse the past 2 days
O2 Sat drops to 86% when she talks
To be taken back to room now
GENERAL: Alert , in no apparent distress
EYE: No visual abnormalities.
NECK: Trachea midline
ENT: No visible abnormalities.
LUNGS: No acute respiratory distress
NEUROLOGICAL: Alert and oriented
SKIN: Skin intact. No visible changes.
MUSCULOSKELETAL: Moving extremities normally
PSYCH: Normal and appropriate interaction.
This is a medical evaluation conducted in person to initiate diagnostic evaluation and provide initial therapeutics. Please see further documentation by the treating clinician.
History of Present Illness
<Steph Adkins NP - Last Filed: 10/26/24 13:45>
General
Chief Complaint: Breathing Problem
Time Seen by Provider: 10/26/24 14:56
<Akin Whitaker MD - Last Filed: 10/26/24 18:48>
General
Source: patient and family (Daughter)
Exam Limitations: none
History of Present Illness
History of Present Illness:
79-year-old female complaining of increased chest tightness mostly with exertion the last few days. Has a chronic cough but cough is worse slightly wetter and some color change. No pleuritic pain. No fever. No myalgias. Mild symptoms at rest.
Patient is on chronic 3 L nasal cannula.
Past History
<Steph Adkins CARPENTER REPAIR - Last Filed: 10/26/24 13:45>
Past History
ED Past Medical History: CHF, COPD, Valvular disease (Aortic stenosis), Hypothyroidism and Other (Psoriasis)
ED Past Surgical History: Gynecological (Tubal ligation)
Social History
Tobacco: Former smoker
Alcohol: None
Drug: None
Personal:
Living: with family
Review of Systems
<Akin Whitaker MD - Last Filed: 10/26/24 18:48>
Review of Systems
All Other Systems: Not applicable
Constitutional: Denies chills
ABD/GI: Reports no symptoms
Neurological: Reports no symptoms
Phy Exam
<Akin Whitaker MD - Last Filed: 10/26/24 18:48>
Physical Exam
Physical Exam:
GENERAL: Alert and oriented in no apparent distress. [address] cannula in place
EYE: Orbits normal.
NECK: Supple, no thyroid palpable.
CARDIAC: Regular rate and rhythm without any obvious murmurs.
LUNGS: No respiratory distress. Distant breath sounds diffusely. A few dry crackles and faint expiratory wheeze at times
ABDOMEN: Soft, without focal tenderness or distention
NEUROLOGICAL: Alert and oriented , grossly non-focal
SKIN: Warm and dry, no rash or lesion, no discoloration, skin intact.
MUSCULOSKELETAL: Mild chronic appearing edema. No warmth. No erythema
PSYCH: Normal and appropriate interaction.
Scores
<Akin Whitaker MD - Last Filed: 10/26/24 18:48>
Heart Failure Risk
Heart Failure Risk Score: Not Applicable
Course
<Steph Adkins NP - Last Filed: 10/26/24 13:45>
Orders/Labs/Results
Orders:
Orders
10/26/24 13:31
ECG [Electrocardiogram (*1)] Urgent
Reason for Study: Chest Pain
EKG- Treatment ONCE
10/26/24 13:42
Electrocardiogram (*1) Stat
Reason for Study: Other
Other Reason for Exam: chest pain
CR Chest - 2 Views Urgent
Comment:
Reason For Exam: cough, SOB, CP, hx COPD
10/26/24 14:20
COVID-19 Antigen Urgent
Source: Nasal Swab
Complete Blood Count/With Diff Urgent
Comprehensive Metabolic Panel Urgent
NT-proBNP Urgent
Troponin I Urgent
INF RAPID [Influenza A+B Rapid Molecular] Urgent
CHENG Source: Nasal Swab
Specimen Description:
10/26/24 15:09
Ipratropium/Albuterol Sulfate [Duoneb] 3 ml INH R NOW ONE
10/26/24 15:37
Dexamethasone Sod Phosphate [Decadron] 6 mg IV NOW STA
10/26/24 15:40
EKG- Treatment ONCE
10/26/24 17:25
Troponin I Urgent
10/26/24 18:43
Doxycycline [Vibramycin] 100 mg PO NOW STA
Abnormal Lab Results
10/26/24 10/26/24
14:20 17:25
RBC 3.26 L 10^6/uL
(4.20-5.40)
Hgb 10.6 L g/dL
(12.0-16.0)
Hct 33.0 L %
(37.0-47.0)
MCV 101.2 H fL
(81.0-99.0)
MCH 32.5 H pg
(27.0-31.0)
MCHC 32.1 L g/dL
(33.0-37.0)
Plt Count 82 L 10^3/uL
(130-400)
MPV 10.6 H fL
(7.4-10.4)
Absolute Lymphs (auto) 0.7 L 10^3/uL
(1.2-3.4)
Neutrophils % 77.3 H %
(42.2-75.2)
Lymphocytes % 12.4 L %
(20.5-51.1)
Chloride 96 L mmol/L
(98-107)
Carbon Dioxide 39 H mmol/L
(22-30)
BUN 24 H mg/dl
(7-17)
Troponin I 0.058 H* ng/ml 0.059 H* ng/ml
Total Protein 5.8 L g/dl
(6.3-8.2)
Albumin 3.3 L g/dl
(3.5-5.0)
10/26/24 14:20
10/26/24 14:20
Vital Signs
Initial and Last Documented VS:
Initial Vital Signs
Temp Pulse Resp BP Pulse Ox
97.6 F 91 18 128/45 88
10/26/24 13:40 10/26/24 13:40 10/26/24 13:40 10/26/24 13:40 10/26/24 13:40
Last Documented Vital Signs
Temp Pulse Resp BP Pulse Ox
97.6 F 74 18 140/40 99
10/26/24 13:40 10/26/24 18:30 10/26/24 18:30 10/26/24 18:00 10/26/24 18:30
<Akin Whitaker MD - Last Filed: 10/26/24 18:48>
Orders/Labs/Results
Orders:
Orders
10/26/24 13:31
ECG [Electrocardiogram (*1)] Urgent
Reason for Study: Chest Pain
EKG- Treatment ONCE
10/26/24 13:42
Electrocardiogram (*1) Stat
Reason for Study: Other
Other Reason for Exam: chest pain
CR Chest - 2 Views Urgent
Comment:
Reason For Exam: cough, SOB, CP, hx COPD
10/26/24 14:20
COVID-19 Antigen Urgent
Source: Nasal Swab
Complete Blood Count/With Diff Urgent
Comprehensive Metabolic Panel Urgent
NT-proBNP Urgent
Troponin I Urgent
INF RAPID [Influenza A+B Rapid Molecular] Urgent
CHENG Source: Nasal Swab
Specimen Description:
10/26/24 15:09
Ipratropium/Albuterol Sulfate [Duoneb] 3 ml INH R NOW ONE
10/26/24 15:37
Dexamethasone Sod Phosphate [Decadron] 6 mg IV NOW STA
10/26/24 15:40
EKG- Treatment ONCE
10/26/24 17:25
Troponin I Urgent
10/26/24 18:43
Doxycycline [Vibramycin] 100 mg PO NOW STA
Abnormal Lab Results
10/26/24 10/26/24
14:20 17:25
RBC 3.26 L 10^6/uL
(4.20-5.40)
Hgb 10.6 L g/dL
(12.0-16.0)
Hct 33.0 L %
(37.0-47.0)
MCV 101.2 H fL
(81.0-99.0)
MCH 32.5 H pg
(27.0-31.0)
MCHC 32.1 L g/dL
(33.0-37.0)
Plt Count 82 L 10^3/uL
(130-400)
MPV 10.6 H fL
(7.4-10.4)
Absolute Lymphs (auto) 0.7 L 10^3/uL
(1.2-3.4)
Neutrophils % 77.3 H %
(42.2-75.2)
Lymphocytes % 12.4 L %
(20.5-51.1)
Chloride 96 L mmol/L
(98-107)
Carbon Dioxide 39 H mmol/L
(22-30)
BUN 24 H mg/dl
(7-17)
Troponin I 0.058 H* ng/ml 0.059 H* ng/ml
Total Protein 5.8 L g/dl
(6.3-8.2)
Albumin 3.3 L g/dl
(3.5-5.0)
10/26/24 14:20
10/26/24 14:20
Vital Signs
Initial and Last Documented VS:
Initial Vital Signs
Temp Pulse Resp BP Pulse Ox
97.6 F 91 18 128/45 88
10/26/24 13:40 10/26/24 13:40 10/26/24 13:40 10/26/24 13:40 10/26/24 13:40
Last Documented Vital Signs
Temp Pulse Resp BP Pulse Ox
97.6 F 74 18 140/40 99
10/26/24 13:40 10/26/24 18:30 10/26/24 18:30 10/26/24 18:00 10/26/24 18:30
<Akin Whitaker MD - Last Filed: 10/26/24 18:48>
MDM/Problems Addressed
Differential Diagnosis Includes:
79-year-old female with chest tightness at times and exertional shortness of breath. Progressive since yesterday. Minimal symptoms currently. Daughter stated she did have a chest tightness continually yesterday. Cardiac versus pulmonary
etiology. More suspicious of a lung etiology. Highly doubt pulmonary emboli. Evaluate for infectious etiology including chest x-ray COVID and flu which were negative. Cardiac evaluation. Clinically doubt CHF.
<Akin Whitaker MD - Last Filed: 10/26/24 18:48>
*Radiology
Radiology exam reviewed: preliminary read by ED provider (No acute findings) and radiology read reviewed (No acute findings)
*Pulse Oximetry
Patient hypoxic: yes (On room air. But 100% on 3 L nasal cannula)
*EKG
Interpreted by ED Provider?: Yes
Interpretation: abnormal
Comparison EKG: no changes
Heart Rate: 86
Rate: normal
Rhythm: sinus
[place]: normal axis
Interval: normal interval
QRS Pattern: left bundle branch block
Ischemia: non-specific ST changes
*Front Desk Auxiliary Interpretation
Rate: normal
Interpretation: normal
Heart Rate: 84
Rhythm: sinus
*Critical Care Note
Total Time (30-74mins, 75-104mins- exclusive of procedures): Not Applicable
Data Reviewed
Review of Other/Old Records Reveals: Labs, Records and Testing
<Akin Whitaker MD - Last Filed: 10/26/24 18:48>
Update Note
Update Note:
2340... Patient currently receiving a nebulizer repeat treatment has remained in no distress. Labs reviewed and compared to previous labs. Troponin minimally elevated however significantly lower than what may be a baseline elevated troponin.
proBNP also elevated but stable. Clinically doubt CHF. Doubt primary cardiac issue as she had prolonged chest tightness essentially all day yesterday. Discussed options with patient and daughter. Offered admission if she was symptomatic enough
with exertion patient states that is not true she is not that symptomatic and would prefer to go home. We will thus do a repeat troponin and EKG. Give her a dose of steroids. If repeat troponin is trending upwards she will be admitted. If repeat
troponin is stable, she is test ambulated and does well and feels well to go home we will discharge her to follow-up
1844... Patient ambulated well. Repeat troponin stable.
ED Attending Note
<Steph Adkins, CARPENTER REPAIR - Last Filed: 10/26/24 13:45>
-
Portions of this chart may have been created with voice recognition software.� Occasional wrong word or��sound alike� substitutions may have occurred due to the inherent limitations of voice recognition software.
Discharge Plan
Departure
Patient Disposition: Home (Routine Discharge)
Date of Disposition: 10/26/24
Time of Disposition: 18:44
Patient with high blood pressure during this ER visit?: Yes
Discharge Problem:
Chest tightness, History of COPD
Instructions: Shortness of Breath (Dyspnea) (DC), Chest Pain CBC Follow Up
Prescriptions:
New
doxycycline hyclate 100 mg capsule
100 mg PO BID 10 Days Qty: 20 0RF
prednisone 10 mg tablet
10 mg PO DAILY Qty: 12 0RF
Rx Instructions:
3 tablets daily x 2 days. Then 2 tablets daily x 2 days. Then 1 tablet daily x 2 days
No Action
alendronate 70 MG tablet
70 mg PO ALEXANDER
aspirin 81 MG tablet,delayed release (DR/EC)
81 mg PO DAILY
furosemide 20 MG tablet
20 mg PO DAILY Qty: 30 0RF
albuterol sulfate 2.5 MG/3 ML solution for nebulization
2.5 mg inhalation R Q4HPRN PRN (Reason: sob) Qty: 3 0RF
atorvastatin 40 mg Tablet
40 mg PO DAILY
clopidogrel 75 mg Tablet
75 mg PO DAILY
escitalopram oxalate 20 mg Tablet
20 mg PO DAILY
budesonide-formoterol [Symbicort] 160-4.5 mcg/actuation Hfa Aerosol Inhaler
2 puff INHALATION R BID
Spiriva Respimat 2.5 mcg/actuation Mist
2 inh INHALATION R DAILY
digoxin 250 mcg (0.25 mg) Tablet
250 mcg PO NOON Qty: 30 0RF
levothyroxine 50 mcg Tablet
50 mcg PO DAILY @ 0600 Qty: 30 0RF
diltiazem HCl 240 mg Capsule,Extended Release 24 Hr
240 mg PO DAILY
Theragen Tablet
1 tab PO DAILY
Visbiome 112.5 billion cell Capsule
1 cap PO DAILY
prednisone 10 mg tablet
10 mg PO DAILY
Referrals:
Marta West MD [Family Provider] - Follow up in 2-3 days
Activity Restrictions/Additional Instructions:
Your prescriptions were called into the pharmacy
Continue your baseline dose of prednisone
Follow-up closely with your bottle packing machine cleaner and ship rigger apprentice
Any concern with progression of symptoms please return immediately for reevaluation
Interventions
Interventions:
*Risk Screen - Suicide Last Done: 10/26/24 13:40
*General Assessment Last Done: 10/26/24 13:40
*Neglect/Abuse Screening Last Done: 10/26/24 13:40
ED- Fall Risk Assessment Last Done: 10/26/24 14:31
*ED COVID-19 Vaccine History Last Done: 10/26/24 14:31
ED- Cardiac Assessment Last Done: 10/26/24 14:31
ED- Pulmonary Assessment Last Done: 10/26/24 14:31
Discharge Date and Time
Print Language: [place]
[2024-10-26 13:40] VITALS: BP 128/45
[2024-10-26 14:08] VITALS: BP 126/40
[2024-10-26 14:48] LABS: COVID-19 Antigen Negative (Negative)
[2024-10-26 14:49] LABS: Hemoglobin 10.6 g/dL (12.0-16.0); Mean Corp Hgb Conc. 32.1 g/dL (33.0-37.0); Mean Corpuscular Hgb 32.5 pg (27.0-31.0); Mean Corpuscular Volume 101.2 fL (81.0-99.0); Mean Platelet Volume 10.6 fL (7.4-10.4); Platelet Count 82 10^3/uL (130-400); Red Blood Cell Count 3.26 10^6/uL (4.20-5.40); White Blood Cell Count 5.5 10^3/uL (4.8-10.8)
[2024-10-26 14:57] LABS: ALT (SGPT) 20 U/L (0-35); AST (SGOT) 25 U/L (14-36); Albumin 3.3 g/dl (3.5-5.0); Alkaline Phosphatase 45 U/L (38-126); Blood Urea Nitrogen 24 mg/dl (7-17); Calcium 8.5 mg/dl (8.4-10.2); Chloride 96 mmol/L (98-107); Glucose 98 mg/dl (70-99); Potassium 3.9 mmol/L (3.5-5.1); Sodium 140 mmol/L (135-145); Total Bilirubin 0.7 mg/dl (0.2-1.3); Total Protein 5.8 g/dl (6.3-8.2); eGFR > 60.00
[2024-10-26 15:00] VITALS: BP 137/41
[2024-10-26 15:11] LABS: NT-proBNP 6640 pg/ml; Troponin I 0.058 ng/ml
[2024-10-26] MEDS: DUONEB 3 ML INH (15:15)
[2024-10-26 15:33] LABS: Carbon Dioxide 39 mmol/L (22-30)
[2024-10-26 15:34] LABS: % Basophils 0.5 % (0-2); % Eosinophils 1.1 % (0-6); % Immature Granulocytes 0.2 % (0-0.5); % Lymphocytes 12.4 % (20.5-51.1); % Monocytes 8.5 % (1.7-9.3); % Neutrophils 77.3 % (42.2-75.2); Absolute Eosinophils 0.1 10^3/uL (0-0.7); Absolute Lymphocytes 0.7 10^3/uL (1.2-3.4); Absolute Monocytes 0.5 10^3/uL (0.1-0.6); Absolute Neutrophils 4.3 10^3/uL (1.4-6.5); Nucleated Red Blood Cells % 0 %
[2024-10-26] MEDS: DECADRON 6 MG IV (15:40)
[2024-10-26 16:00] VITALS: BP 137/40
[2024-10-26 17:00] VITALS: BP 129/58
[2024-10-26 18:00] VITALS: BP 140/40
[2024-10-26 18:03] LABS: Troponin I 0.059 ng/ml
[2024-10-26] MEDS: VIBRAMYCIN 100 MG PO (18:46)
== END 2024-10-26 19:00 | disposition home or self-care (01) ==
LOC: EMR 13:31
PROVIDERS: Emergency Medicine; Registered Nurse; EMERGENCY PHYSICIAN Emergency Medicine; FAMILY PHYSICIAN Family Medicine
DX: R07.89 Other chest pain (principal); J44.9 Chronic obstructive pulmonary disease, unspecified; E03.9 Hypothyroidism, unspecified; I35.0 Nonrheumatic aortic (valve) stenosis; I50.9 Heart failure, unspecified; Z87.891 Personal history of nicotine dependence; Z95.5 Presence of coronary angioplasty implant and graft; Z98.51 Tubal ligation status; Z99.81 Dependence on supplemental oxygen
CPT/HCPCS: 99283; 94640; 96374; 71046; 80053; 83880; 84484; 85025; 87502; 87811; 93005

== ENCOUNTER 2024-11-15 21:28 | Inpatient (IN) | payer OTHER, SELFPAY ==
[2024-11-15 19:59] VITALS: BMI 19.3
[2024-11-15 20:00] VITALS: BP 179/74
[2024-11-15 20:13] VITALS: BP 179/74
[2024-11-15 20:25] LABS: % Basophils 0.2 % (0-2); % Eosinophils 2.3 % (0-6); % Immature Granulocytes 0.4 % (0-0.5); % Lymphocytes 26.7 % (20.5-51.1); % Monocytes 9.3 % (1.7-9.3); % Neutrophils 61.1 % (42.2-75.2); Absolute Eosinophils 0.1 10^3/uL (0-0.7); Absolute Lymphocytes 1.5 10^3/uL (1.2-3.4); Absolute Monocytes 0.5 10^3/uL (0.1-0.6); Absolute Neutrophils 3.4 10^3/uL (1.4-6.5); Hematocrit 39.2 % (37.0-47.0); Mean Corp Hgb Conc. 30.6 g/dL (33.0-37.0); Mean Corpuscular Hgb 32.3 pg (27.0-31.0); Mean Corpuscular Volume 105.7 fL (81.0-99.0); Mean Platelet Volume 10.5 fL (7.4-10.4); Nucleated Red Blood Cells % 0 %; Platelet Count 110 10^3/uL (130-400); Red Blood Cell Count 3.71 10^6/uL (4.20-5.40); White Blood Cell Count 5.6 10^3/uL (4.8-10.8)
[2024-11-15 20:31] LABS: ALT (SGPT) 22 U/L (0-35); AST (SGOT) 37 U/L (14-36); Albumin 3.7 g/dl (3.5-5.0); Alkaline Phosphatase 47 U/L (38-126); Blood Urea Nitrogen 23 mg/dl (7-17); Chloride 92 mmol/L (98-107); Estimated Creatinine Clearance 42 ml/min; Glucose 98 mg/dl (70-99); Potassium 4.8 mmol/L (3.5-5.1); Sodium 138 mmol/L (135-145); Total Bilirubin 0.3 mg/dl (0.2-1.3); Total Protein 6.5 g/dl (6.3-8.2); eGFR > 60.00
[2024-11-15 20:32] VITALS: BP 176/64
[2024-11-15 20:33] VITALS: BP 159/66
[2024-11-15 20:41] VITALS: PULSE 102; PULSE 2
[2024-11-15 20:45] VITALS: BP 164/59
[2024-11-15 20:46] LABS: NT-proBNP 6130 pg/ml; Troponin I 0.213 ng/ml
--- NOTE | 2024-11-15 20:50 | ED.GENMED ---
History of Present Illness
General
Chief Complaint: Breathing Problem
Time Seen by Provider: 11/15/24 19:58
History of Present Illness
History of Present Illness:
Patient is a 79-year-old with history of CAD status post stent, CHF, COPD on oxygen presenting to the emergency department shortness of breath. Patient is unable provide full history but states that she was having difficulty breathing as well as
chest tightness. She states that the chest tightness is similar to when she needed her stent. She does state that she has been having some nausea as well. Per chart review patient was seen here and had a stent placed in August. She states that
she is compliant with her medications. Patient's daughter arrived and provide additional history. States that she was complaining of some shortness of breath that started today and they did give her nebulizers which did not help. She has had a
cough for few weeks now but no fevers or chills. No congestion or runny nose. She has been having ongoing leg swelling but has been compliant with her Lasix.
Past History
Past History
ED Past Medical History: CHF, COPD, Valvular disease (Aortic stenosis), Hypothyroidism and Other (Psoriasis)
ED Past Surgical History: Gynecological (Tubal ligation)
Social History
Tobacco: Former smoker
Alcohol: None
Drug: None
Personal:
Living: with family
Phy Exam
Physical Exam
Physical Exam:
GENERAL: Appears acutely unwell
HEENT: normocephalic, extraocular movements intact, dry oral mucosa
NECK: normal inspection
RESPIRATORY: moderate respiratory distress, rales at the base
CARDIOVASCULAR: regular rate and rhythm
ABDOMEN/: soft, non-distended, non-tender to palpation, no rebound or guarding
EXTREMITIES: non-tender, bilateral lower extremities
NEUROLOGIC: awake and alert, moves all extremities
SKIN: warm
Scores
Heart Failure Risk
Heart Failure Risk Score: Not Applicable
Course
Orders/Labs/Results
Orders:
Orders
11/15/24 19:45
Electrocardiogram (*1) Urgent
Reason for Study: Shortness of Breath
EKG- Treatment ONCE
11/15/24 20:05
EKG [Electrocardiogram (*1)] Stat
Reason for Study: Shortness of Breath
EKG- Treatment ONCE
11/15/24 20:06
Cardiac Monitoring- Treatment ONCE
IV Insert/Care/Rem.- Treatment PRN
CR Chest Portable - 1 View Urgent
Comment:
Reason For Exam: respiratory distress
Reason Study Needs to be Portable: Patient Unstable
O2 Therapy [RESP] Urgent
Titrate/Wean O2 to maintain O2 sat greater than (%): 93
Special Instructions: TO MAINTAIN CONTINUOUS O2 SATS >/= 93%
Pulse Ox/cont/shift [RESP] Urgent
Quantity: 1
Special Instructions: continuous pulse ox
11/15/24 20:08
Complete Blood Count/With Diff Urgent
Comprehensive Metabolic Panel Urgent
NT-proBNP Urgent
Troponin I Urgent
11/15/24 20:15
Aspirin Chewable [Low Strength Aspirin] 162 mg .ROUTE .STK-MED ONE
11/15/24 20:16
Aspirin Low Dose EC [Aspir Low (Enteric Coated)] 162 mg .ROUTE .STK-MED ONE
11/15/24 20:37
Heparin 10,000 units .ROUTE .STK-MED ONE
Heparin 1000 Units/500 ml [Heparin] 1,000 units in 500 ml .ROUTE .STK-MED
Lidocaine Bolus 100 mg [Xylocaine Bolus 100 mg] 200 mg .ROUTE .STK-MED ONE
Verapamil Injectable [Isoptin/Verapamil Injection] 5 mg .ROUTE .STK-MED ONE
11/15/24 20:38
Heparin Sodium,Porcine/Ns/Pf [Heparin 2000 Units/1000 ml] 2,000 unit in 1,000 ml .ROUTE .STK-MED
Nitroglycerin [Tridil] 1,500 mcg .ROUTE .STK-MED ONE
11/15/24 20:57
Ticagrelor [Brilinta] 180 mg .ROUTE .STK-MED ONE
11/15/24 20:58
Aspirin Chewable [Low Strength Aspirin] 81 mg .ROUTE .STK-MED ONE
Heparin 5,000 units .ROUTE .STK-MED ONE
11/15/24 21:00
PT/INR [Prothrombin Time] Urgent
PTT Urgent
11/15/24 21:03
Arterial Blood Gas Routine
Comment: RECEIVED NOT NON ICE
11/15/24 21:20
Arterial Blood Gas Routine
11/15/24 21:25
Furosemide [Lasix] 40 mg .ROUTE .STK-MED ONE
Abnormal Lab Results
11/15/24 11/15/24 11/15/24
20:08 21:03 21:05
RBC 3.71 L 10^6/uL
(4.20-5.40)
MCV 105.7 H fL
(81.0-99.0)
MCH 32.3 H pg
(27.0-31.0)
MCHC 30.6 L g/dL
(33.0-37.0)
Plt Count 110 L 10^3/uL
(130-400)
MPV 10.5 H fL
(7.4-10.4)
pH 7.23 L
(7.35-7.45)
pCO2 101 H* mmHg
(32-35)
pO2 210 H mmHg
(83-108)
HCO3 42.3 H* mmol/L
(21-28)
ABG O2 Sat (Measured) 100.0 H %
(94-98)
Chloride 92 L mmol/L
(98-107)
Carbon Dioxide 37 H mmol/L
(22-30)
BUN 23 H mg/dl
(7-17)
AST 37 H U/L
(14-36)
Troponin I 0.213 H* ng/ml
POC ACT Low Range 207 H Seconds
(116-155)
11/15/24
21:20
RBC
MCV
MCH
MCHC
Plt Count
MPV
pH 7.21 L
(7.35-7.45)
pCO2 100 H* mmHg
(32-35)
pO2 303 H mmHg
(83-108)
HCO3 40.0 H mmol/L
(21-28)
ABG O2 Sat (Measured) 100.0 H %
(94-98)
Chloride
Carbon Dioxide
BUN
AST
Troponin I
POC ACT Low Range
11/15/24 20:08
11/15/24 20:08
Vital Signs
Initial and Last Documented VS:
Initial Vital Signs
Pulse Resp Pulse Ox
121 26 90
11/15/24 19:59 11/15/24 19:59 11/15/24 19:59
Last Documented Vital Signs
Temp Pulse Resp BP Pulse Ox
100.2 F 100 20 164/59 95
11/15/24 20:13 11/15/24 20:45 11/15/24 20:45 11/15/24 20:45 11/15/24 20:47
MDM/Problems Addressed
Differential Diagnosis Includes:
Patient is a 79-year-old woman with history of CAD with stent, CHF, COPD on oxygen presenting to the emergency department chest pain and shortness of breath. On arrival here patient was placed on nasal cannula with normal saturations. Patient
looked acutely unwell and moderate respiratory distress with difficulty speaking in full sentences. Differential consists of ACS versus COPD/CHF exacerbation. However EKG per my interpretation with elevations anteriorly though patient does have a
left bundle branch block. I did discuss the case with on-call interventional cardiology Dr. Martinez who given patient's clinical picture history and EKG changes decision was made to call a STEMI. Patient given aspirin nitro Brilinta and heparin.
Shortly after patient complaining of worsening difficulty breathing. On exam patient's crackles are slightly worse and she is hypertensive. Patient was placed on nonrebreather while waiting respiratory for BiPAP. She did improve on nonrebreather
and did appear much more comfortable and her work of breathing improved. Portable x-ray obtained that does show some vascular congestion per my interpretation.
Respiratory arrived while cardiology was evaluating patient. She did improve with her work of breathing however given the hypertension and the rails decision was made to proceed with BiPAP for the catheterization. Patient transferred up to the
catheterization suite in stable condition.
*Critical Care Note
Total Time (30-74mins, 75-104mins- exclusive of procedures): 35
comment:
Critical care statement: A total of 35 minutes of critical care time was provided for this patient. This includes management of unstable vital signs, evaluation of the patient at bedside, reviewing the patient's pertinent medical records, ordering
and reviewing studies, arranging urgent treatment with development of a management plan, evaluating patient's response to treatment, frequent reassessment, and discussion with consultants. This time was separate from time utilized to perform the
aforementioned documented procedures.
ED Attending Note
-
Portions of this chart may have been created with voice recognition software.� Occasional wrong word or��sound alike� substitutions may have occurred due to the inherent limitations of voice recognition software.
Discharge Plan
Departure
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
Date of Disposition: 11/15/24
Time of Disposition: 20:59
Presentation/result/management discussed w/ accepting MD/DO: cardiology
Discharge Problem:
ST elevation (STEMI) myocardial infarction
Interventions
Interventions:
*General Assessment Last Done: 11/15/24 20:13
*Neglect/Abuse Screening Last Done: 11/15/24 20:13
ED- Fall Risk Assessment Last Done: 11/15/24 20:05
*Nursing Disposition Last Done: 11/15/24 20:47
ED- Cardiac Assessment Last Done: 11/15/24 20:02
ED- Pulmonary Assessment Last Done: 11/15/24 20:02
Discharge Date and Time
Discharge Date/Time: 11/15/24 20:47
[2024-11-15 20:51] LABS: Carbon Dioxide 37 mmol/L (22-30)
[2024-11-15 21:10] LABS: ACT-LR - POC 207 Seconds (116-155)
[2024-11-15 21:16] LABS: B.E. 11.3 mmol/L; PO2 210 mmHg (83-108); pH 7.23 (7.35-7.45)
[2024-11-15 21:19] LABS: HCO3 42.3 mmol/L (21-28); PCO2 101 mmHg (32-35)
[2024-11-15 21:22] LABS: APTT 27.3 Sec (23.4-35.0); INR 0.84
[2024-11-15 21:29] LABS: B.E. 9.2 mmol/L; PO2 303 mmHg (83-108); pH 7.21 (7.35-7.45)
[2024-11-15 21:30] LABS: PCO2 100 mmHg (32-35)
--- NOTE | 2024-11-15 22:00 | W.PN.ANESINT ---
Anesthesia Intubation Note
- Intubation Note
Intubation Note:
Diagnosis: acute hypercarbic respiratory failure
Blade: mac 4
Tube Size: 8.0
Depth: 20cm
Side Taped: right
Drugs Used: fentanyl 100mcg (by staff analyst), propofol 40mg, succ 80mg
Grade View: 2
EtCO2 Present: yes
Atraumatic: some blood present in oropharynx prior to intubation when upper denture removed
Attempts: 1
Insertion Start and Stop Time:
SaO2 Pre: 90
SaO2 Post: 99
Glidescope Used: yes
Other Airway Adjustments:
Pre-Oxygenated: yes
Portable Chest X-Ray: pending
RSI:
Suctioned: yes
Bilateral Breath Sounds Confirmed: yes
Vent Settings:
Settings per __x_Attending Physician
--- NOTE | 2024-11-15 22:20 | ITS.CL.PN ---
[employer] Software Engineer - Procedure Note
Procedure
Procedure Note:
CARDIAC CATHETERIZATION REPORT
Date of Procedure: 11-15-2024
Referring: Dr. Emre Gonzalez MD
Indication: STEMI
PROCEDURE(S)
1. left heart catheterization
2. coronary angiography
ACCESS:
1. 6F right femoral artery (sheath sewn in place)
2. 6F right femoral vein (sheath sewn in place)
Note: radial access was attempted initially but the wire would not pass beyond the elbow. Thus, given the emergent nature of the case conversion to femoral access was performed. Because of the patient's hypertension there was ongoing bleeding from
the needle access site requiring manual pressure by staff for approximately 10 minutes as the case proceeded.
CATHETERS
1. 6F JL3.5
2. 6F EBU3.0 guide
3. 6F JR4
HEMODYNAMIC DATA
LV 215/19 (EDP 40) mmHg
AO 204/77 (mean 123) mmHg
CORONARY ANGIOGRAPHY - note: given the patient's prior TAVR valve there was difficulty obtaining selective angiography, however, significant CAD was excluded by sub selective angiograms so further attempts at selective angiography were not performed
Dominance: right
LM: patent stent
LAD: Large vessel giving rise to one major diagonal branch. There is REGULO III flow distally and no significant obstructive coronary disease.
LCx: Large vessel with a patent proximal stent and a single large marginal branch with REGULO-3 flow distally and no significant coronary artery disease.
RCA: Large vessel giving rise to a RPDA and large RPL system. There is REGULO-3 flow distally and no significant coronary artery disease
During the procedure the patient's blood gas was obtained and notable for pCO2 of 100. The patient became progressively somnolent and after reviewing the chart and based on prior discussion with the patient's daughter the decision was made to
proceed with intubation. The patient was successfully intubated by anesthesia with stable hemodynamics and taken to the medical intensive care unit. There was significant hematoma at the right radial site, and a TR band was placed. Note: only an
access needle punctured of the radial artery but given the patient's hypertension, despite pressure being held for 10 minutes during the case, a hematoma resulted.
RADIATION: dose 160 mGy; DAP 12 Gy*cm2; fluoroscopy time 8.9 min
CONCLUSIONS
1. No obstructive coronary disease in a right dominant system with patent prior left main into left circumflex stent.
2. Systemic hypertension and elevated LV filling pressures in the setting of severe hypercarbic respiratory failure.
RECOMMENDATIONS
1. Expectant management after cardiac catheterization via right femoral and right radial approach. TR band protocol for radial artery.
2. Management of hypercapnic respiratory failure by pulmonary critical care team
Copy to: Dr. Farhat Soriano MD (plate maker zinc); Dr. Marta West MD (PCP)
Signed: Gonsalo Rodriguez MD, PhD
--- NOTE | 2024-11-15 22:41 | CON.CAR ---
Consultation
Consultation Request
Date/Time Consultation Requested: 11/15/24 9:30 PM
Date/Time Consultation Performed: 11/15/24 9:30 PM
Requesting Provider: Dr. Emre Gonzalez
Performing Provider: Dr. Baldo Rodriguez
Reason for Consultation: STEMI
Medical History
-
Chief Complaint: STEMI
History of Present Illness:
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
presented with 24 hours of worsening shortness of breath and chest discomfort, found to have anterior ST elevations in the setting of underlying left bundle branch block. Her daughter described a day of worsening shortness of breath, lethargy, and
complaints of central chest pain. The symptomatology reminded her of a prior admission during which the patient was intubated for COPD exacerbation. Given the prior history of spontaneous coronary artery dissection of the left main, and
significant ST segment changes on EKG, the decision was made to proceed with emergent cardiac catheterization.
Past Medical History
Past Medical History: Arrhythmias, COPD and Valvular Disease
Allergies / Home Medications
Allergy/AdvReac Type Severity Reaction Status Date / Time
No Known Allergies Allergy Verified 11/15/24 19:58
�Medication �Instructions �Recorded �Confirmed �Type
alendronate 70 mg tablet 70 mg PO ALEXANDER OSTEOPOROSIS 10/29/20 10/26/24 History
aspirin 81 mg tablet,delayed 81 mg PO DAILY Blood clot 11/16/21 10/26/24 History
release prevention/tx
albuterol sulfate 2.5 mg/3 mL 2.5 mg (3 mL) inhalation R Q4HPRN 04/28/22 10/26/24 Rx
(0.083 %) solution for nebulization PRN sob ##3
furosemide 20 mg tablet 20 mg PO DAILY #30 tabs 04/28/22 10/26/24 Rx
atorvastatin 40 mg tablet 40 mg PO DAILY High Cholesterol 08/18/24 10/26/24 History
budesonide-formoterol HFA 160 2 puff inhalation R BID copd 08/18/24 10/26/24 History
mcg-4.5 mcg/actuation aerosol
inhaler (Symbicort)
clopidogrel 75 mg tablet 75 mg PO DAILY Heart 08/18/24 10/26/24 History
Disease/Condition
escitalopram oxalate 20 mg tablet 20 mg PO DAILY Mental 08/18/24 10/26/24 History
Health/Anxiety
tiotropium bromide 2.5 2 inh inhalation R DAILY COPD 08/18/24 10/26/24 History
mcg/actuation mist for inhalation
(Spiriva Respimat)
digoxin 250 mcg (0.25 mg) tablet 250 mcg PO NOON #30 tabs 08/26/24 10/26/24 Rx
levothyroxine 50 mcg tablet 50 mcg PO DAILY @ 0600 #30 tabs 08/26/24 10/26/24 Rx
Lactobac no.2-Bifidobac no.1-S. 1 cap PO DAILY 10/26/24 10/26/24 History
thermo 112.5 billion cell capsule
(Visbiome)
diltiazem HCl 240 mg capsule,24 240 mg PO DAILY 10/26/24 10/26/24 History
hr,extended release
doxycycline hyclate 100 mg capsule 100 mg PO BID 10 days #20 caps 10/26/24 Rx
prednisone 10 mg tablet 10 mg PO DAILY 10/26/24 10/26/24 History
prednisone 10 mg tablet 10 mg PO DAILY #12 tabs 10/26/24 Rx
therapeutic multivitamin 1 tab PO DAILY 10/26/24 10/26/24 History
Review of Systems
-
Respiratory: Trouble Breathing
Cardiac: Chest Pain
Physical Exam
Vital Signs
Temp Pulse Resp BP Pulse Ox
37.9 C 100 20 164/59 95
11/15/24 20:13 11/15/24 20:45 11/15/24 20:45 11/15/24 20:45 11/15/24 20:47
Lab Results
11/15/24 20:08
11/15/24 20:08
Troponin I 0.213 ng/ml H* 11/15/24 20:08
Ort-G-Oelritoksjb Pept 6130 pg/ml 11/15/24 20:08
Physical Exam
General: Respiratory Distress
Cardiac: S1/S2 and Other (warm, strong pulses)
Impression / Plan
-
This is a 79-year-old woman with advanced COPD and prior spontaneous left main coronary artery dissection presenting with respiratory failure, chest pain, and ST segment changes in the setting of underlying left bundle branch block. ACS is on the
differential and it is reasonable to proceed with emergent coronary angiography to exclude this reversible cause of her presentation. It is also likely that this is a primary respiratory process. At the time of Ic Engineer activation blood gas had
not yet been obtained and will be obtained immediately upon access in the lab.
Data Reviewed
-
EKG: Tracing Personally Visualized and interpreted, Report Reviewed by me and Discussed with Physician
Labs: Labs Reviewed by me
[2024-11-15 22:56] LABS: B.E. 7.7 mmol/L; HCO3 38.6 mmol/L (21-28); Ionized Calcium 1.21 mMOL/L (1.15-1.33); O2 Saturation % 98.9 % (94-98); PO2 108 mmHg (83-108); Potassium 4.9 mMOL/L (3.5-5.1)
[2024-11-15] MEDS: SUBLIMAZE 45 MCG IV (22:56)
[2024-11-15 23:02] LABS: PCO2 101 mmHg (32-35); pH 7.19 (7.35-7.45)
[2024-11-15] MEDS: SUBLIMAZE 100 IV (23:04)
[2024-11-15] MEDS: DIPRIVAN 100 IV (23:04)
[2024-11-15 23:06] LABS: INR 0.99; PT 13.6 Sec (11.4-14.6)
[2024-11-15 23:08] LABS: APTT 113.2 Sec (23.4-35.0)
--- NOTE | 2024-11-15 23:16 | HPS.HSE ---
Addendum entered and electronically signed by Sharath Weller, DO 11/16/24 05:30:
Influenza A positive. Suspect influenza pneumonia as inciting / initial event.
Begin Tamiflu via OGT.
Follow proper precautions once extubated.
Addendum entered and electronically signed by Sharath Weller, DO 11/16/24 00:05:
Family asks that they be contacted / be able to be present if or when patient is extubated in the AM.
Original Note:
Family Physician
-
Family Physician: Marta West
Chief Complaint
-
SOB
History of Present Illness
Patient is a 79y F with PMH significant for COPD, chronic O2 dependence, ASCVD and HFpEF who presents to ED complaining of cough and SOB. History obtained from family and ED staff. Patient has had hacking, non-productive cough for the past 3-4
days. Grandson in the home has recently been ill with similar symptoms. Patient was more active than usual over the past 2 days due to the holiday. Last PM, patient slept very poorly complaining of cough and SOB that kept her from
sleep. She typically sleeps with Trilogy Vent due to combination hypoxemic and hypercapnic respiratory failure.
Throughout the day today patient was noted to be 'out of it' with lethargy and fatigue. She was breathing short, rapid breaths.
Patient continued to experience worsening dyspnea and cough and was brought to the ED for further evaluation.
In the ED, patient complained of SOB and also reportedly some chest tightness. EKG was done which was suspicious for STEMI and medical lab technician was activated.
Patient was taken urgently to the medical lab technician for ischemic evaluation. Patient became increasingly lethargic / poorly responsive. She was started on BiPAP in the medical lab technician.
ABG done on BiPAP showed hypercapnic respiratory failure and decision was made to intubate patient for improved ventilation.
Cath was negative for any culprit lesion / significant stenosis. Previous placed L main stent was patent (08/2024).
Patient was noted to have elevated LV filling pressures and she did receive Lasix 40mg IV during the case.
Patient was admitted post-cath to the CVICU where she was seen and examined.
Case discussed with family in detail.
Medical History
Past Medical History
Past Medical History: Reports Other
Additional Past Medical History:
COPD
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
Hypothyroidism
Hypertension
Aortic Stenosis s/p TAVR
Anxiety / Depression
ASCVD (Carotid stenosis, PAD)
HFpEF
Past Surgical History: Reports Other
Additional Past Surgical History:
PTCA with L Main Stent (08/2024 - secondary to dissection)
TAVR
Right WALDEMAR
Tubal Ligation
Thoracic Aorta Stent / Graft
Social History
Tobacco: Former Smoker (Quit smoking 20-30 years ago. Approx 20 pack years total use.)
Alcohol: None
Drug: None
Family History
Family History: Not pertinent
Allergies / Home Medications
Allergies reflects when Allergies were last updated in [employer].
Home Medications with original date entered in [employer]
Allergy/Medication List:
Allergies
Allergy/AdvReac Type Severity Reaction Status Date / Time
No Known Allergies Allergy Verified 11/15/24 19:58
Home Medications
alendronate 70 mg tablet 70 mg PO ALEXANDER OSTEOPOROSIS 10/29/20
aspirin 81 mg tablet,delayed release 81 mg PO DAILY Blood clot prevention/tx 11/16/21
albuterol sulfate 2.5 mg/3 mL (0.083 %) solution for nebulization 2.5 mg (3 mL) inhalation R Q4HPRN PRN sob ##3 04/28/22
furosemide 20 mg tablet 20 mg PO DAILY #30 tabs 04/28/22
atorvastatin 40 mg tablet 40 mg PO DAILY High Cholesterol 08/18/24
budesonide-formoterol HFA 160 mcg-4.5 mcg/actuation aerosol inhaler (Symbicort) 2 puff inhalation R BID copd 08/18/24
clopidogrel 75 mg tablet 75 mg PO DAILY Heart Disease/Condition 08/18/24
escitalopram oxalate 20 mg tablet 20 mg PO DAILY Mental Health/Anxiety 08/18/24
tiotropium bromide 2.5 mcg/actuation mist for inhalation (Spiriva Respimat) 2 inh inhalation R DAILY COPD 08/18/24
digoxin 250 mcg (0.25 mg) tablet 250 mcg PO NOON #30 tabs 08/26/24
levothyroxine 50 mcg tablet 50 mcg PO DAILY @ 0600 #30 tabs 08/26/24
Lactobac no.2-Bifidobac no.1-S. thermo 112.5 billion cell capsule (Visbiome) 1 cap PO DAILY 10/26/24
diltiazem HCl 240 mg capsule,24 hr,extended release 240 mg PO DAILY 10/26/24
doxycycline hyclate 100 mg capsule 100 mg PO BID 10 days #20 caps 10/26/24
prednisone 10 mg tablet 10 mg PO DAILY 10/26/24
prednisone 10 mg tablet 10 mg PO DAILY #12 tabs 10/26/24
therapeutic multivitamin 1 tab PO DAILY 10/26/24
Review of Systems
-
Unable to obtain full review of systems at this time due to: Patient Intubation
Physical Exam
Vital Signs
Vital Signs
Temp Pulse Resp BP Pulse Ox
100.2 F 100 20 164/59 95
11/15/24 20:13 11/15/24 20:45 11/15/24 20:45 11/15/24 20:45 11/15/24 20:47
Physical Exam
General: Other (79y F currently sedated / intubated.)
HEENT: Moist mucous membranes and Other (ETT in place, poor dentition. Pos JVD.)
Respiratory: Other (Diffuse rales / rhonchi. No wheezing.)
Cardiac: S1/S2 and Regular Rhythm
GI: Soft, Non Tender, Non Distended and Normal Bowel Sounds
Musculoskeletal: No Clubbing, No Cyanosis and No Edema
Neuro: Sedated
Hematologic/Lymphatic: Other (R groin access site intact. R radial artery site with small hematoma. Pressure device in place.)
Laboratory Results
-
11/15/24 22:42
Laboratory Results
PT 13.6 Sec (11.4-14.6) 11/15/24 22:50
INR 0.99 11/15/24 22:50
APTT 113.2 Sec (23.4-35.0) H 11/15/24 22:50
pH 7.19 (7.35-7.45) L* 11/15/24 22:50
pCO2 101 mmHg (32-35) H* 11/15/24 22:50
pO2 108 mmHg (83-108) 11/15/24 22:50
HCO3 38.6 mmol/L (21-28) H 11/15/24 22:50
Total Bilirubin 0.3 mg/dl (0.2-1.3) 11/15/24 20:08
AST 37 U/L (14-36) H 11/15/24 20:08
ALT 22 U/L (0-35) 11/15/24 20:08
Alkaline Phosphatase 47 U/L (38-126) 11/15/24 20:08
Troponin I 0.213 ng/ml H* 11/15/24 20:08
Impression/Plan
-
A/P: Patient is a 79y F with PMH significant for COPD, ASCVD and CHF who presents to ED complaining of cough and SOB x 3-4 days.
COPD with Acute Exacerbation
Acute on Chronic Hypoxemic and Hypercapnic Respiratory Failure
- Admit to ICU for further evaluation and treatment.
- ABG on BiPAP with pCO2 100 (baseline around 60).
- Maintain vent support overnight.
- Pulmonary evaluation / weaning trial in AM.
- IV steroids for now - taper / discontinue quickly if able.
- IV abx for now. Follow fever curve, etc. Note history of silent aspiration by VSE.
- Check COVID / flu status (family states patient was negative for COVID at home).
- Follow for clinical changes / improvement.
ASCVD
Myocardial Injury
- Initial EKG suspicious for STEMI and medical lab technician activated.
- No significant stenosis / occlusion appreciated.
- Stent placed in 08/2024 (for L main dissection) is patent.
- Chronic LBBB - follow EKG for changes. Monitor for any new / worsening symptoms.
- Continue DAPT.
- Cardiology evaluation.
- Continue to trend troponin.
- Myocardial injury likely on the basis of respiratory distress +/- CHF, etc.
Acute on Chronic HFpEF
- BNP not significantly changed from prior.
- Elevated pressures noted during cath.
- Continue IV Lasix for now and follow I/Os, daily weights, etc.
- Update Echo.
- Cardio eval as noted above.
Benign Hypertension
- BP elevated likely due to volume overload.
- IV diuresis as noted above.
- Follow for changes in BP control.
Hypothyroidism
- Stable. Continue T4 supplementation.
Aortic Stenosis s/p TAVR
Descending Thoracic Aorta Stent
DVT Prophylaxis: Subcut Heparin
Code Status: DNR
--- NOTE | 2024-11-15 23:20 | PTCARENOTE ---
Received pt from clinical laboratory aides teacher. Pt is intubated and sedated. Propofol started, fentanyl bolus and gtt started. (See MAR). Lungs diminished, scattered rhonchi, coarse. Ventilator set to T/V 400, rate 14, FIO2 50%, Peep 5. Pt awakens to tactile stimuli.
Pupil nonreactive. NSR on monitor. HR 86, B/P 116/46. R femoral A-line zeroed and calibrated. R femoral venous sheath to KVO. Mills intact, draining clear, yellow fluid WNL. Hypoactive B/S. abdomen soft. L PVA intact, no redness or edema noted. R
radial hematoma and skin tear noted. TR band on right brachial by slab installer. CHG bath given, mills care provided.
--- NOTE | 2024-11-15 23:30 | PTCARENOTE ---
[address] in L nares with immediate drainage of 50 ml brown stomach bile. Confirmed placement by Xray. Placed on intermittent suction. Pt tolerated procedure.
[2024-11-15 23:36] LABS: Blood Urea Nitrogen 25 mg/dl (7-17); Calcium 8.4 mg/dl (8.4-10.2); Chloride 95 mmol/L (98-107); Estimated Creatinine Clearance 37 ml/min; Glucose 119 mg/dl (70-99); Potassium 4.8 mmol/L (3.5-5.1); Sodium 135 mmol/L (135-145); Triglycerides 61 mg/dl (10-149); eGFR > 60.00
[2024-11-15 23:48] LABS: Carbon Dioxide 37 mmol/L (22-30)
[2024-11-15 23:57] LABS: B.E. 9.5 mmol/L; HCO3 39.8 mmol/L (21-28); O2 Saturation % 94.8 % (94-98); PO2 69 mmHg (83-108); pH 7.23 (7.35-7.45)
[2024-11-15 23:59] LABS: PCO2 95 mmHg (32-35)
[2024-11-16] VITALS (33 sets, daily range): BP systolic 90–146; BP diastolic 31–54; PULSE 2–80; BMI 19.5
[2024-11-16] MEDS: ZOSYN IV
[2024-11-16] MEDS: SUBLIMAZE 50 MCG IV (00:30)
[2024-11-16] MEDS: ZOSYN 50 IV ×2 (00:41→06:32)
[2024-11-16] MEDS: HEPARIN 5000 UNITS SC ×4 (00:41→23:56)
[2024-11-16 00:46] LABS: Hematocrit 32.4 % (37.0-47.0); Hemoglobin 9.9 g/dL (12.0-16.0); Mean Corp Hgb Conc. 30.6 g/dL (33.0-37.0); Mean Corpuscular Hgb 32.7 pg (27.0-31.0); Mean Corpuscular Volume 106.9 fL (81.0-99.0); Mean Platelet Volume 11.4 fL (7.4-10.4); Platelet Count 94 10^3/uL (130-400); Red Blood Cell Count 3.03 10^6/uL (4.20-5.40); Red Cell Dist. Width 13.9 % (11.5-14.5); White Blood Cell Count 5.2 10^3/uL (4.8-10.8)
[2024-11-16] MEDS: DECADRON 6 MG IV ×2 (00:46→08:25)
[2024-11-16 00:52] LABS: Troponin I 0.468 ng/ml
[2024-11-16] MEDS: LEVOPHED 250 IV (01:00)
--- NOTE | 2024-11-16 01:12 | PTCARENOTE ---
Pt HR 74, B/P 72/30. Per CTPA Tslina, Pt started on Levo (See MAR). B/P stabilized 100's/30's.
[2024-11-16 01:22] LABS: B.E. 9.5 mmol/L; HCO3 37.8 mmol/L (21-28); PO2 204 mmHg (83-108); pH 7.31 (7.35-7.45)
[2024-11-16 01:26] LABS: PCO2 75 mmHg (32-35)
--- NOTE | 2024-11-16 03:11 | PTCARENOTE ---
VSS. Pt remains intubated and sedated, Propofol, Levo, and Fentanyl gtts continued (See Worklist flow sheets). Vent settings currently T/V 300, FIO2 50%, rate 26/min, Peep 5. NSR with PAC's on monitor, HR 77, B/P 123/43 (696). Will continue to
monitor pt needs.
[2024-11-16 03:18] LABS: COVID-19 Antigen Negative (Negative)
[2024-11-16 05:09] LABS: B.E. 8.5 mmol/L; HCO3 35.9 mmol/L (21-28); PCO2 65 mmHg (32-35); PO2 164 mmHg (83-108); pH 7.35 (7.35-7.45)
[2024-11-16] MEDS: TAMIFLU 150 MG PO (05:15)
[2024-11-16 05:26] LABS: Hematocrit 32.4 % (37.0-47.0); Mean Corp Hgb Conc. 30.9 g/dL (33.0-37.0); Mean Corpuscular Hgb 31.9 pg (27.0-31.0); Mean Corpuscular Volume 103.5 fL (81.0-99.0); Mean Platelet Volume 10.6 fL (7.4-10.4); Platelet Count 98 10^3/uL (130-400); Red Blood Cell Count 3.13 10^6/uL (4.20-5.40); Red Cell Dist. Width 13.9 % (11.5-14.5); White Blood Cell Count 6.5 10^3/uL (4.8-10.8)
[2024-11-16 05:47] LABS: Blood Urea Nitrogen 30 mg/dl (7-17); Calcium 8.1 mg/dl (8.4-10.2); Carbon Dioxide 39 mmol/L (22-30); Chloride 94 mmol/L (98-107); Estimated Creatinine Clearance 37 ml/min; Glucose 148 mg/dl (70-99); HDL Cholesterol 81 mg/dl; LDL Cholesterol, Calculated 75 mg/dl; Phosphorus 4.2 mg/dl (2.5-4.5); Potassium 4.7 mmol/L (3.5-5.1); Sodium 135 mmol/L (135-145); Total Cholesterol 174 mg/dl (50-199); Triglyceride 92 mg/dl (10-149); Very Low Density Lipoprotein 18 mg/dl (0-30); eGFR > 60.00
[2024-11-16] MEDS: SYNTHROID 50 MCG TUBE (06:33)
[2024-11-16] MEDS: DUONEB 3 ML INH ×4 (07:42→19:16)
--- NOTE | 2024-11-16 08:00 | PTCARENOTE ---
resumed care of patient from previous RN. Sedated on vent at time of assessment. Able to open eyes to voice and touch. nods head appropriately and moves all extremities. SR with PVCs on monitor HR 60s. see vent settings. All lines zeroed and
calibrated. mills draining yellow urine. Left nare ngt to LIS. Draining yellow/green bilious. R DP palpable. L by doppler. michael arms echymottic. R arm with large skin tear. dressing changed. fentanyl and prop on for sedation and levo continues to
infuse to maintain map>65. will wean as able. Family updated bedside and will continue to monitor.
[2024-11-16] MEDS: LASIX 40 MG IV ×2 (08:22→15:55)
[2024-11-16] MEDS: LOW STRENGTH ASPIRIN 81 MG TUBE (08:23)
[2024-11-16] MEDS: PLAVIX 75 MG TUBE (08:23)
[2024-11-16] MEDS: MIRALAX 17 GRAMS TUBE (08:35)
[2024-11-16] MEDS: NSS (PRESERVATIVE FREE) 10 ML IV (08:36)
[2024-11-16] MEDS: PROTONIX IV 40 MG IV (08:36)
[2024-11-16] MEDS: TAMIFLU 75 MG TUBE (08:41)
--- NOTE | 2024-11-16 10:09 | CM ---
spoke to pt's daughters in room, pt is sedated and intubated. pt lives with her daughter in a split level home with 5 steps to enter. she is prev indep, has a cane and a walker at home if needed. she has home O2 thru [employer] at 3 liters continuous.
unable to asses her dc needs at this time, however discussed possible need for rehab. daughters wuld like [facility] or [facility] if she needs it. they would also be agreeable to VN if that was needed. cm role explained.
--- NOTE | 2024-11-16 10:12 | CM ---
juan henry at [facility]- her copay for Oct is $108. i could not obtain the coapy for nov or next year as all medicare plans have changed with the elim of the coverage gap. they are ok with the copay for oct. i will also put a 30 day free coupon
in her chart and they said they will use it in Nov when her deductible will be applied to the cost to save them more. i confirmed that it is in stock at her [facility]. [phone]
[2024-11-16] MEDS: TAMIFLU PO (10:16)
--- NOTE | 2024-11-16 10:26 | W.PN.HOSP.TC ---
Today's Communication/Plan
-
await region manager for decision on extubation
treat for influenza
Assessment / Plan
Assessment / Plan
pt is a 79 year old female
COPD with Acute Exacerbation likely from influenza A (positive) with Acute on Chronic Hypoxemic and Hypercapnic Respiratory Failure--intubated in quality assurance qa lab analyst--await region manager for possible extubation (pt was DNR and not supposed to be intubated in the
first place)-- ABG on BiPAP with pCO2 100 (baseline around 60)-- IV steroids for now - taper / discontinue quickly if able-- IV abx for now. Follow fever curve, etc. Note history of silent aspiration by VSE--COVID neg--FLU +
ASCVD/Myocardial Injury--Initial EKG suspicious for STEMI and quality assurance qa lab analyst activated- No significant stenosis/occlusion appreciated- Stent placed in 08/2024 (for L main dissection) is patent- Chronic LBBB - follow EKG for changes. Monitor for any new /
worsening symptoms--having pauses--discussion with cards re: pacer in process- Continue DAPT--apprec cards- Continue to trend troponin - Myocardial injury likely on the basis of respiratory distress +/- CHF, etc.
Acute on Chronic HFpEF- BNP not significantly changed from prior- Elevated pressures noted during cath- Continue IV Lasix for now and follow I/Os, daily weights, etc.- Update Echo- Cardio eval as noted above.
Essential Hypertension- BP elevated likely due to volume overload- IV diuresis as noted above- Follow for changes in BP control.
Hypothyroidism- Stable. Continue T4 supplementation.
Aortic Stenosis s/p TAVR--Descending Thoracic Aorta Stent
DVT Prophylaxis: Subcut Heparin
Code Status: DNR
Anticipated Discharge: > 48 hours
Subjective/Interval History
-
Date of Service: November 16, 2024
pt intubated, family at bedside
Objective Data
-
Labs:
Laboratory Results
11/15/24 11/15/24 11/15/24
22:42 22:50 23:46
WBC Cancelled
Hgb Cancelled
Hct Cancelled
Plt Count Cancelled
PT 13.6
INR 0.99
APTT 113.2 H
HCO3 38.6 H 39.8 H
Sodium 135
Potassium 4.8
Chloride 95 L
Carbon Dioxide 37 H
BUN 25 H
Creatinine 0.9
Glucose 119 H
Calcium 8.4
11/16/24 11/16/24 11/16/24
00:15 01:10 05:02
WBC 5.2 6.5
Hgb 9.9 L 10.0 L
Hct 32.4 L 32.4 L
Plt Count 94 L 98 L
PT
INR
APTT
HCO3 37.8 H 35.9 H
Sodium 135
Potassium 4.7
Chloride 94 L
Carbon Dioxide 39 H
BUN 30 H
Creatinine 0.9
Glucose 148 H
Calcium 8.1 L
Vital Signs:
max temp for 24 hours
11/16/24
01:00
Temp 100.4 F H
Vital Signs
Temp Pulse Resp BP Pulse Ox
98.7 F 73 26 121/50 97
11/16/24 09:00 11/16/24 10:00 11/16/24 10:00 11/16/24 10:00 11/16/24 10:00
I&O
11/15/24 11/16/24 11/17/24
06:59 06:59 06:59
Intake Total 294.5 / 377.4 174.1 / 174.1
Output Total 515 / 540 325 / 325
Balance -220.5 / -162.6 -150.9 / -150.9
Review of Systems
-
Unable to obtain full review of systems at this time due to: Patient Intubation
Physical Exam
-
General: Intubated and Appears Chronically Ill
HEENT: Normocephalic and Atraumatic
Respiratory: Rhonchi (coarse breath sounds at bases bilaterally)
Cardiac: Regular Rhythm and S1/S2; Negative Murmur
GI: Soft, Nontender, Nondistended and Normal Bowel Sounds
Musculoskeletal: No Clubbing, No Cyanosis and No Edema
Neuro: Sedated; Negative Awake or Alert
Psych: Calm
--- NOTE | 2024-11-16 10:40 | CARDSERVDEF ---
Echocardiogram with Definity completed after protocol screening completed. Allergies verified.
Patent IV site: __L Wrist___
IV site flushed with 0.9% NaCl pre and post administration.
Diluted bolus method utilized to enhance visualization of ventricular dejesus.
Total volume given: _2___ mL
Patient tolerated all procedures well without complications.
--- NOTE | 2024-11-16 10:41 | CON.INTV ---
Addendum entered and electronically signed by Jose Vale MD 11/16/24 15:19:
Patient seen and examined independently by myself.
Reviewed resident notes, assessment plan as below and agree with plan as outlined
Patient well-known to myself, severe emphysema on chronic oxygen therapy, chronic nocturnal ventilation at home, history of spontaneous pneumothorax on the right, coronary disease requiring stent, heart failure, aortic stenosis status post TAVR,
recent left main stent via catheterization August 2024, presents with 3 to 5-day history of cough, chest congestion, chest tightness, shortness of breath. EKG changes noted on admission. Patient went to [facility] with elevated troponin. Was
unremarkable however patient with persistent lethargy, found to have acute on chronic hypercarbic respiratory failure. Patient was intubated and admitted to ICU postcatheterization. She had a mild hematoma in the area of her right radial access
for catheterization. Hypertension during procedure noted.
Presently, patient is awake, off sedation, following commands.
Upon reviewing and obtaining further history from multiple family members, patient is chronically fatigued, chronic headaches. This is getting worse over the past few months. Recent sick contacts with [place] holidays noted.
Patient found to have influenza positive earlier today.
Review of systems, past medical history, past surgical history, social history, family history as below
No known drug allergies
Physical exam
Labile blood pressure noted, ranging from 90s to 180s systolic. Heart rate ranging from the 60s to 70s with episodes of tachycardia in the 110s. Low-grade fever. Remains on volume-cycled ventilation
AC 26/300/5/40, PEEP pressure 41, plateau pressure 18
Patient is cachectic, moving all extremities
ET tube in place
Chest exam with decreased breath sounds, no wheeze or rhonchi. Cardiac exam regular rate rhythm
Abdominal exam soft nontender
Extremities no clubbing or cyanosis
Right upper extremity radial bandage in place
Multiple ecchymoses noted
Data reviewed serum bicarbonate 39. Prior blood analysis suggest baseline pCO2 around 70
Influenza positive
proBNP elevated 6130
Troponin mildly elevated
A/P
Moving forward
Continue with volume-cycled ventilations but hope for extubation later today
Patient with extremely poor pulmonary reserve, severe emphysema, nocturnal ventilator dependent
Family and patient understand risk of reintubation especially in the setting of acute influenza
Fortunately catheterization was unremarkable
Will transition to ASV, CPAP and avoid over ventilation
Target pCO2 around 60-70
If able to extubate, will extubate to BiPAP
Maintain BiPAP until a.m. except for short periods of break during dinner for sips of water, ice chips, clears as able
ABG in the a.m. Maintain A-line for now
No indication for antibiotics
Decrease steroids. No evidence of acute COPD exacerbation
Wean off pressors as able
Check lower extremity Dopplers although low suspicion for thromboembolic disease
The above was reviewed in length with patient, multiple family members throughout the day including CVICU staff
Reviewed with critical care nursing, respiratory care, pharmacy
TCCT 76 min
Original Note:
Consultation
Consultation Request
Date/Time Consultation Requested: 11/15/24
Date/Time Consultation Performed: 11/16/24
Requesting Provider: Dr. Weller
Performing Provider: Dr. Sandoval/Dr. Vale
Medical History
-
Chief Complaint: shortness of breath
History of Present Illness:
79yo F with PMH advanced COPD on home O2 and trilogy vent at night, ASCVD, CAD s/p stent 08/2024, HFpEF who presented to ED 11/15/24 for shortness of breath. History obtained from chart review as patient remains intubated at this time. Prior to
admission, had cough for 3-4 days and became progressively lethargic and dyspneic. In the ED, she reported chest tightness, had an elevated troponin, and EKG changes concerning for STEMI. She was taken to slab miller operator urgently, and cath was negative for
significant stenosis. She was started on BiPAP due to lethargy and after ABG showed hypercapnic respiratory failure, she was intubated for improved ventilation. Flu positive. Hoist Worker consulted for ventilator/critical care management.
Patient seen and evaluated in CVICU this morning. Remains intubated and mechanically ventilated on AC, rate 26, Vt 300, PEEP 5, FiO2 40%. Peak pressure 41, plateau pressure 18. Vitals since cath- BPs 90-130s/30s-50s, HR 60s-80s, Tmax 100.4 now 98.8,
SpO2 >91%. Propofol 15 mcg/kg/min, fentanyl 25mcg/h, and levophed 4mcg/min, KVO 10mL/h. Opens eyes and follows commands, denies pain, appears comfortable.
Past Medical History
Past Medical History: Arrhythmias (atrial tachycardia), CAD (coronary artery dissection s/p PCI stent 08/2024), CHF (HRpEF), COPD (requires home O2 and trilogy vent at night), HTN, Hypothyroidism, Psychiatric (anxiety) and Other (carotid stenosis,
peripheral arterial disease, aortic stenosis s/p TAVR, chronic LBBB)
Past Surgical History: Cardiac (TAVR 2020, PCI stent 08/2024), Gynecological (tubal ligation) and Orthopedic (R WALDEMAR)
Social History
Tobacco: Former Smoker
Alcohol: None
Drug: None
Family History
Family History: Unable to Obtain
Allergies / Home Medications
Allergies
Allergy/AdvReac Type Severity Reaction Status Date / Time
No Known Allergies Allergy Verified 11/15/24 19:58
Home Medications
�Medication �Instructions �Recorded �Confirmed �Last Taken �Type
alendronate 70 mg tablet 70 mg PO ALEXANDER OSTEOPOROSIS 10/29/20 10/26/24 08/12/24 History
aspirin 81 mg tablet,delayed 81 mg PO DAILY Blood clot 11/16/21 10/26/24 08/17/24 History
release prevention/tx
albuterol sulfate 2.5 mg/3 mL 2.5 mg (3 mL) inhalation R Q4HPRN 04/28/22 10/26/24 Unknown Rx
(0.083 %) solution for nebulization PRN sob ##3
atorvastatin 40 mg tablet 40 mg PO DAILY High Cholesterol 08/18/24 10/26/24 08/17/24 History
budesonide-formoterol HFA 160 2 puff inhalation R BID copd 08/18/24 10/26/24 08/17/24 History
mcg-4.5 mcg/actuation aerosol
inhaler (Symbicort)
clopidogrel 75 mg tablet 75 mg PO DAILY Heart 08/18/24 10/26/24 08/17/24 History
Disease/Condition
escitalopram oxalate 20 mg tablet 20 mg PO DAILY Mental 08/18/24 10/26/24 08/17/24 History
Health/Anxiety
tiotropium bromide 2.5 2 inh inhalation R DAILY COPD 08/18/24 10/26/24 08/17/24 History
mcg/actuation mist for inhalation
(Spiriva Respimat)
Lactobac no.2-Bifidobac no.1-S. 1 cap PO DAILY Supplement 10/26/24 10/26/24 Unknown History
thermo 112.5 billion cell capsule
(Visbiome)
diltiazem HCl 240 mg capsule,24 240 mg PO DAILY Blood Pressure 10/26/24 10/26/24 Unknown History
hr,extended release
prednisone 10 mg tablet 10 mg PO DAILY INFLAMMATION 10/26/24 10/26/24 Unknown History
therapeutic multivitamin 1 tab PO DAILY Supplement 10/26/24 10/26/24 Unknown History
digoxin 250 mcg (0.25 mg) tablet 250 mcg PO NOON Heart 11/16/24 Unknown History
Disease/Condition
doxycycline hyclate 100 mg capsule 100 mg PO BID Infection 11/16/24 Unknown History
furosemide 20 mg tablet 20 mg PO DAILY Fluid 11/16/24 Unknown History
Retention/Swelling
levothyroxine 50 mcg tablet 50 mcg PO DAILY @ 0600 Thyroid 11/16/24 Unknown History
prednisone 10 mg tablet 10 mg PO DAILY INFLAMMATION 11/16/24 Unknown History
Review of Systems
-
Unable to Obtain full review of systems at this time due to: Patient Intubation
Vitals / Labs / Diagnostic Testing
Vital Signs
Temp Pulse Resp BP Pulse Ox
99 F 73 26 121/50 97
11/16/24 10:00 11/16/24 10:00 11/16/24 10:00 11/16/24 10:00 11/16/24 10:00
Lab Data
11/16/24 05:02
11/16/24 05:02
Laboratory Results
11/15/24 11/15/24 11/15/24
21:00 21:03 21:20
PT 12.0
INR 0.84
APTT 27.3
pH 7.23 L 7.21 L
pCO2 101 H* 100 H*
pO2 210 H 303 H
HCO3 42.3 H* 40.0 H
O2 Delivery Level Not Reportable
11/15/24 11/15/24 11/16/24
22:50 23:46 01:10
PT 13.6
INR 0.99
APTT 113.2 H
pH 7.19 L* 7.23 L 7.31 L
pCO2 101 H* 95 H* 75 H*
pO2 108 69 L 204 H
HCO3 38.6 H 39.8 H 37.8 H
O2 Delivery Level
11/16/24
05:02
PT
INR
APTT
pH 7.35
pCO2 65 H
pO2 164 H
HCO3 35.9 H
O2 Delivery Level
Microbiology
11/16/24 02:56 Nasal Swab Influenza Types A & B (APOLINAR) - Final
Influenza A Positive, NAAT
Diagnostic Testing:
Physical Exam
-
HEENT: Normocephalic, Anicteric and Moist Mucous Membranes
Cardiovascular: S1/S2, Regular Rhythm, Murmur (negative) and Peripheral Edema (negative)
Respiratory: Clear, Wheeze (negative), Rhonchi (negative) and Other (intubated, mechanically ventilated)
GI: Soft, Non Distended, Non Tender, Normal Bowel Sounds and Other (NGT)
Neurology: Awake, Alert and Other (opens eyes, follows commands)
Skin: Warm, Dry and Good Color
General: Comfortable, Pain (negative), Fever (negative), Chills (negative), Sweats (negative) and Other (+mills draining clear yellow urine)
Assessment
-
79yo F with PMH advanced COPD on home O2 and trilogy vent at night, ASCVD, CAD s/p stent 08/2024, HFpEF who presented to ED 11/15/24 for shortness of breath. History obtained from chart review as patient remains intubated at this time. Prior to
admission, had cough for 3-4 days and became progressively lethargic and dyspneic. In the ED, she reported chest tightness, had an elevated troponin, and EKG changes concerning for STEMI. She was taken to slab miller operator urgently, and cath was negative for
significant stenosis. She was started on BiPAP due to lethargy and after ABG showed hypercapnic respiratory failure, she was intubated for improved ventilation. Flu positive. Hoist Worker consulted for ventilator/critical care management.
Impression:
Acute on chronic hypercapnic/hypoxemic respiratory failure
Influenza positive
Elevated troponin- likely demand ischemia from acute illness, hypoxemia; cardiac cath negative 11/15/24
Elevated pressures during cath, suspect volume overload
Conditions prior to admission:
Advanced COPD on home O2 and trilogy vent at night
ASCVD, CAD, PAD
HFpEF
Chronic LBBB
HTN
Hypothyroidism
Aortic stenosis s/p TAVR
Anxiety
Plan:
Patient remains intubated and mechanically ventilated
Transfer patient to ICU
Discontinue sedation and if appropriate transition to CPAP and wean as tolerated
Will recheck ABG with SBT when able
If able to extubate patient, plan to continue BiPAP
Continue tamiflu and supportive measures
Discontinue zosyn, do not suspect bacterial infection at this time
Will check lower extremity US to evaluate for DVT given presentation raises concern for PE
Possible COPD exacerbation, continue steroids, decrease decadron to 4mg q12h
Cardiology following
Follow up on ECG- question of complete heart block
Trend troponin- elevated on admission, then trended up likely secondary to cardiac cath
Continue IV lasix for diuresis
Continue plavvix, aspirin
Wean levo as tolerated
Update echo
Hold on tube feeds as anticipate extubation and resumption of PO diet shortly
Continue IVF
Monitor electrolytes, supplement as needed
Monitor BG, will reassess insulin requirements if needed
Discontinue mills
Code status: DNR
VTE ppx: subcutaneous heparin q8h, SCDs
Update 1447: Patient tolerated wean on cpap well, ABG showed appropriate oxygenation/ventilation-- hypercapnia noted, consistent with chronic advanced COPD. Patient extubated successfully, now on BiPAP. Plan to continue BiPAP overnight, though can
have temporary break later today. Titrate O2 for SpO2 goal of 88-92%. When more awake, can consider trial of clear liquids. Recheck ABG in AM.
[2024-11-16 10:49] LABS: Glycohemoglobin (HgbA1c) 5.2 % (4.0-5.6)
[2024-11-16 11:57] LABS: Troponin I 0.422 ng/ml
--- NOTE | 2024-11-16 12:00 | PTCARENOTE ---
report given to irene from ICU and transported upstairs with resp therapist.
--- NOTE | 2024-11-16 12:23 | PTCARENOTE ---
Addendum entered by Teresa Delacruz RN 11/16/24 12:47:
pt nsr with pacs and bbb
Addendum entered by Teresa Delacruz RN 11/16/24 12:30:
right arm ecchymotic, with wound dressing on, drainage noted.
Original Note:
pt received from cvicu- pt sedation turned off, ett to vent- Dr. Vale at bedside- pt placed on wean. see vent settings. levo continues and weaned as tolerated to maintain map>65. pt nods appropriately, follows commands. nsr with pacs on monitor.
kvo infusing through right femoral sheath, right femoral sigrid zeroed and functioning. mills draining yellow urine. Left nare ngt at 65cm, auscultated for placement, low intermittent suction, green drainage noted. all safety precautions in place.
[2024-11-16 14:14] LABS: B.E. 13.3 mmol/L; HCO3 39.4 mmol/L (21-28); PCO2 58 mmHg (32-35); PO2 182 mmHg (83-108); pH 7.44 (7.35-7.45)
--- NOTE | 2024-11-16 15:01 | RESPNOTE ---
Extubated to Bipap /6 with 3 liters at this time, comfortable and tolerating well. SAT 92% HR 78 RR 14
--- NOTE | 2024-11-16 15:06 | PTCARENOTE ---
pt extubated to 12/6 bipap with 3L. pt tolerating. levophed off, maintaining map>65. ngt removed per Dr. Vale. right arm dressing changed.
--- NOTE | 2024-11-16 18:22 | PTCARENOTE ---
pt continues tolerating bipap, turned and repositioned with assistance.
--- NOTE | 2024-11-16 18:39 | W.PN.CD ---
Today's Communication / Plan
-
discussed heart block with daughter, plan for conservative management at this time
DNR
Impression / Plan
-
This is a 79-year-old woman with advanced COPD and prior spontaneous left main coronary artery dissection presenting with respiratory failure, chest pain, and ST segment changes in the setting of underlying left bundle branch block. Emergent
coronary angiography was performed demosntrating patent LM-LCx stent and no significant CAD. However, patient had progressive hypercapnic respiratory failure requiring intubation.
# Hypercapnic respiratory failure
# severe COPD
# flu A
- appreciate hospitalist and critical care team input, management per them
# Complete heart block
- overnight on tele noted to have two episodes of ~5s complete heart block without escape
- discussed with patient's daughter at length. Given the patient's goals of care, it was decided that we would wait until she is extubated and able to participate in a conversation to determine whether to proceed with permanent pacemaker
implantation. We also discussed placing pads and performing transcutaneous pacing should the patient have prolonged heart block. It was also decided that this would not currently be within the patient's goals of care given the risk for significant
discomfort. We will reevaluate once the patient is extubated and stabilized. Should the patient had significant heart block plan will be to manage with chronotropic medication but not to perform CPR or administer transcutaneous pacing.
# CAD s/p PCI to LM-LCx
# concern for STEMI
- no new cad on cath 11/16
- ST changes / troponin elevation likely myocardia injury in setting of severe hypercapnic respiratory failure
- cont. asa/plavix
# HFpEF
- elevated LVEDP in lab in setting of severe systemic hypertension
- echo 11/16 stable from prior with normal EF
- IV lasix given in lab, more given today
- can likely transition to PRN dosing tomorrow
# Atrial tachycardia, NSVT
- can resume patient's outpatient dilt/dig once closer to discharge
# s/p TAVR
- normal valve gradient in lab and echo
Echo 11/16
Left ventricle is small in size with mild concentric left ventricular
hypertrophy.
Normal left ventricular systolic function with no regional wall motion
abnormalities. LVEF 55-60%.
Normal right ventricular size and function.
Severe mitral annular calcification with mild mitral stenosis.
Well-seated AVR with peak/mean gradients across the aortic valve of 8/4 mmHg
and trace regurgitation.
Mild tricuspid regurgitation. No evidence of elevated pulmonary artery
pressures.
Physical Exam
Vital Signs/Labs
Vital Signs
Temp Pulse Resp BP Pulse Ox
37.2 C 76 16 104/53 94
11/16/24 16:10 11/16/24 18:15 11/16/24 18:15 11/16/24 18:00 11/16/24 18:15
11/15/24 11/16/24 11/17/24
06:59 06:59 06:59
Actual Weight 45.4 kg
11/16/24 05:02
11/16/24 05:02
PT 13.6 Sec (11.4-14.6) 11/15/24 22:50
INR 0.99 11/15/24 22:50
APTT 113.2 Sec (23.4-35.0) H 11/15/24 22:50
Magnesium 2.0 mg/dl (1.6-2.3) 11/16/24 05:02
Triglycerides 92 mg/dl (10-149) 11/16/24 05:02
LDL Cholesterol, Calc 75 mg/dl 11/16/24 05:02
VLDL Cholesterol, Calc 18 mg/dl (0-30) 11/16/24 05:02
HDL Cholesterol 81 mg/dl 11/16/24 05:02
11/15/24
20:08
Bov-I-Ctxpvpcnrpv Pept 6130
LAB Results
11/15/24 11/16/24 11/16/24
20:08 00:15 11:05
Troponin I 0.213 H* 0.468 H* D 0.422 H*
Physical Exam
Constitutional: No acute distress
Cardiovascular: Rhythm & rate is regular
Respiratory: Other (intubated)
Neuro/Psych: Other (following commands, alert)
Data Reviewed
-
Date of Service: November 16, 2024
Medical Decision Making: Reviewed Test Results
EKG: Tracing Personally Visualized and interpreted
Labs: Labs Reviewed by me
Critical Care Time (in minutes): 35
[2024-11-16] MEDS: DECADRON 4 MG IV (19:39)
--- NOTE | 2024-11-16 20:00 | PTCARENOTE ---
assumed care, pt ox3 makes needs known WHEELER and denies pain, NS on the monitor B/L SCD + pulses, BIPAP 12/6 4L rhonchi diminished and coarse throughout SpO2 94%, BSx4 hypoactive, temp sensing mills yellow output, B/L extremity bruising RFA skin tear,
R fem Luz zeroed, 20G L wrist, 20G LAC, 20G RAC call bautista within reach otherwise refer to documentation.
[2024-11-16 20:55] LABS: Troponin I 0.344 ng/ml
[2024-11-17] VITALS (15 sets, daily range): BP systolic 140–158; BP diastolic 46–64; PULSE 2–99; BMI 18.9
--- NOTE | 2024-11-17 01:33 | PTCARENOTE ---
systems reviewed, no change in previous assessment, refer to documentation.
[2024-11-17] MEDS: VENTOLIN NEBULES 2.5 MG INH (01:48)
[2024-11-17 02:43] LABS: O2 Saturation % 98.1 % (94-98); PCO2 66 mmHg (32-35); PO2 76 mmHg (83-108)
[2024-11-17 02:44] LABS: HCO3 40.9 mmol/L (21-28); O2 Therapy BIPAP 12/5/3L
[2024-11-17 02:47] LABS: Hematocrit 28.8 % (37.0-47.0); Hemoglobin 9.4 g/dL (12.0-16.0); Mean Corp Hgb Conc. 32.6 g/dL (33.0-37.0); Mean Corpuscular Hgb 32.8 pg (27.0-31.0); Mean Corpuscular Volume 100.3 fL (81.0-99.0); Mean Platelet Volume 10.9 fL (7.4-10.4); Platelet Count 83 10^3/uL (130-400); Red Blood Cell Count 2.87 10^6/uL (4.20-5.40); Red Cell Dist. Width 13.8 % (11.5-14.5)
[2024-11-17 03:27] LABS: Troponin I 0.291 ng/ml
[2024-11-17 03:50] LABS: ALT (SGPT) 24 U/L (0-35); AST (SGOT) 48 U/L (14-36); Alkaline Phosphatase 42 U/L (38-126); Blood Urea Nitrogen 37 mg/dl (7-17); Calcium 7.6 mg/dl (8.4-10.2); Chloride 90 mmol/L (98-107); Estimated Creatinine Clearance 38 ml/min; Glucose 110 mg/dl (70-99); Magnesium 2.2 mg/dl (1.6-2.3); Potassium 4.2 mmol/L (3.5-5.1); Sodium 137 mmol/L (135-145); Total Bilirubin 0.2 mg/dl (0.2-1.3); Total Protein 5.4 g/dl (6.3-8.2); eGFR > 60.00
[2024-11-17 04:26] LABS: Carbon Dioxide 37 mmol/L (22-30)
[2024-11-17] MEDS: APRESOLINE 10 MG IV ×2 (04:57→14:12)
[2024-11-17] MEDS: SYNTHROID 50 MCG PO (05:09)
--- NOTE | 2024-11-17 05:31 | PTCARENOTE ---
systems reviewed, dressing changed x2 for R arm skin tear, BP elevated [employer] made aware hydralazine given per order, labs sent, otherwise refer to documentation.
[2024-11-17] MEDS: SYMBICORT 160/4.5 MCG INHALER 2 PUFF INH ×2 (07:29→19:59)
[2024-11-17] MEDS: DUONEB 3 ML INH ×4 (07:29→19:59)
--- NOTE | 2024-11-17 07:46 | W.PN.INTV ---
Today's Communication / Plan
Recommendations
Discontinue A-line
Advance diet
Transition to oral prednisone
Lasix therapy per cardiology
Continue with BiPAP as needed during the day and nightly
Aspiration precautions
Being considered for pacemaker
Assessment
-
79yo F with PMH advanced COPD on home O2 and trilogy vent at night, ASCVD, CAD s/p stent 08/2024, HFpEF who presented to ED 11/15/24 for shortness of breath. History obtained from chart review as patient remains intubated at this time. Prior to
admission, had cough for 3-4 days and became progressively lethargic and dyspneic. In the ED, she reported chest tightness, had an elevated troponin, and EKG changes concerning for STEMI. She was taken to clinical lab clerk urgently, and cath was negative for
significant stenosis. She was started on BiPAP due to lethargy and after ABG showed hypercapnic respiratory failure, she was intubated for improved ventilation. Flu positive. Central Office Installer consulted for ventilator/critical care management.
Acute on chronic hypercapnic/hypoxemic respiratory failure
Intubated 11/15
Extubated 11/16
Influenza positive
Elevated troponin- likely demand ischemia from acute illness, hypoxemia; cardiac cath negative 11/15/24
Elevated pressures during cath, suspect volume overload
Episodic complete heart block per telemetry
Conditions prior to admission:
Advanced COPD on home O2 and trilogy vent at night
ASCVD, CAD, PAD
HFpEF
Chronic LBBB
HTN
Hypothyroidism
Aortic stenosis s/p TAVR
Anxiety
Plan/recommendations
At this time, patient appears to be improved
Extubated 11/16
Maintain on noninvasive ventilation/BiPAP overnight
ABG reviewed, pCO2 66
Lower extremity Dopplers negative for DVT
Moving forward
Continue tamiflu and supportive measures
Discontinue zosyn, do not suspect bacterial infection at this time
Transition to oral prednisone with taper
Cardiology following
Follow up on ECG- question of complete heart block
Trend troponin- elevated on admission, then trended up likely secondary to cardiac cath
Continue IV lasix for diuresis
Continue plavvix, aspirin
Echocardiogram normal biventricular function, well-seated AVR
Weaned off pressors
Discontinue femoral A-line
Telemetry reviewed. Episodes of heart block noted. Telemetry
Pacemaker is being considered
Advance diet as able
Continue IVF
Monitor electrolytes, supplement as needed
Monitor BG, will reassess insulin requirements if needed
Discontinue mills
Code status: DNR
VTE ppx: subcutaneous heparin q8h, SCDs
Reviewed with critical care nursing, respiratory care
TCCT 31 min
Subjective Dataa
Subjective Data
Date of Service:
Date of Service: November 17, 2024
Subjective:
Patient remains critically ill, tolerating BiPAP overnight. Currently off BiPAP, still feeling shortness of breath but conversing. Denies chest pain
Objective Data
Data Reviewed
Vital Signs / I&O / Oxygen:
Vital Signs
Temp Pulse Resp BP Pulse Ox
98.6 F 98 18 156/55 96
11/17/24 03:04 11/17/24 07:38 11/17/24 07:38 11/17/24 04:57 11/17/24 07:38
Intake and Output
11/16/24 11/17/24 11/18/24
06:59 06:59 06:59
Intake Total 294.5 / 377.4 364.1 / 364.1
Output Total 515 / 540 1620 / 1620
Balance -220.5 / -162.6 -1255.9 / -1255.9
SaO2 [ASV] 96
SaO2 [A/C] 99
SaO2 96
Nasal Cannula flow liters per 6
minute
Physical Exam
General: Respiratory Distress (Mild use of accessory muscles with conversation) and Other (Cachectic)
HEENT: Normocephalic and Anicteric
Cardiovascular: S1-S2, Regular Rhythm ( mildly tachycardic), Murmur and Rub (n)
Respiratory: Wheeze (n), Crackles (n), Rhonchi (n), Accessory Resp Muscle Use (Mild use of accessory muscles with conversation), Stridor (n) and Other (Decreased breath sounds)
GI: Soft, Non Distended and Non Tender
Neurology: Awake, Alert and No Motor Deficits (Moves all extremities, generally weak)
Skin: Jaundice (n), Rash (n) and Bruising (Few scattered bruising)
Labs/Micro/Reports
Lab Data
11/17/24 02:36
11/17/24 02:36
Laboratory Results
11/16/24 11/17/24
14:08 02:36
pH 7.44 7.40
pCO2 58 H 66 H
pO2 182 H 76 L
HCO3 39.4 H 40.9 H*
O2 Delivery Level Bipap 10/25/3l
Microbiology
11/16/24 02:56 Nasal Swab Influenza Types A & B (APOLINAR) - Final
Influenza A Positive, NAAT
--- NOTE | 2024-11-17 07:50 | W.PN.HOSP.TC ---
Today's Communication/Plan
-
OOB
taper steroids
change meds to PO
PT/OT/speech
Assessment / Plan
Assessment / Plan
pt is a 79 year old female
COPD with Acute Exacerbation likely from influenza A (positive) with Acute on Chronic Hypoxemic and Hypercapnic Respiratory Failure--intubated in bean sprout laborer, now extubated-- ABG on BiPAP with pCO2 100 (baseline around 60)-- IV steroids
taper/discontinue quickly if able-- stop IV abx--influenza positive, cont tamiflu-- Follow fever curve, etc. Note history of silent aspiration by VSE--COVID neg
ASCVD/Myocardial Injury--Initial EKG suspicious for STEMI (but NOT) and bean sprout laborer activated- No significant stenosis/occlusion appreciated- Stent placed in 08/2024 (for L main dissection) is patent- Chronic LBBB with periods of complete heart block
per cards- follow EKG for changes--discussion with cards re: pacer in process- Continue DAPT--apprec cards- Continue to trend troponin - Myocardial injury likely on the basis of respiratory distress +/- CHF, etc.
Acute on Chronic HFpEF- BNP not significantly changed from prior- Elevated pressures noted during cath- Continue IV Lasix for now and follow I/Os, daily weights, etc.- Update Echo- Cardio eval as noted above.
Essential Hypertension- BP elevated likely due to volume overload- IV diuresis as noted above- Follow for changes in BP control.
Hypothyroidism- Stable. Continue T4 supplementation.
Aortic Stenosis s/p TAVR--Descending Thoracic Aorta Stent
DVT Prophylaxis: Subcut Heparin
Code Status: DNR
Anticipated Discharge: > 48 hours
Subjective/Interval History
-
Date of Service: November 17, 2024
pt on BiPAP, c/o of chest tightness needing her symbicort
Objective Data
-
Labs:
Laboratory Results
11/17/24
02:36
WBC 7.0
Hgb 9.4 L
Hct 28.8 L
Plt Count 83 L
HCO3 40.9 H*
Sodium 137
Potassium 4.2
Chloride 90 L
Carbon Dioxide 37 H
BUN 37 H
Creatinine 0.9
Glucose 110 H
Calcium 7.6 L
Total Bilirubin 0.2
AST 48 H
ALT 24
Alkaline Phosphatase 42
Vital Signs:
max temp for 24 hours
11/16/24
12:00
Temp 99 F
Vital Signs
Temp Pulse Resp BP Pulse Ox
98.6 F 98 18 156/55 96
11/17/24 03:04 11/17/24 07:38 11/17/24 07:38 11/17/24 04:57 11/17/24 07:38
I&O
11/16/24 11/17/24 11/18/24
06:59 06:59 06:59
Intake Total 294.5 / 377.4 364.1 / 364.1
Output Total 515 / 540 1620 / 1620
Balance -220.5 / -162.6 -1255.9 / -1255.9
Review of Systems
-
All other systems: Reviewed and negative
Cardiac: Reports Other (chest tight)
Physical Exam
-
General: Appears Chronically Ill
HEENT: Normocephalic, Atraumatic and Oxygen (BiPAP)
Respiratory: Decreased Breath Sounds; Negative Wheezes
Cardiac: Regular Rhythm and S1/S2; Negative Murmur
GI: Soft, Nontender, Nondistended and Normal Bowel Sounds
Musculoskeletal: No Clubbing, No Cyanosis and No Edema
Neuro: Awake and Alert
Psych: Calm
[2024-11-17] MEDS: NSS (PRESERVATIVE FREE) 10 ML IV (08:29)
[2024-11-17] MEDS: LASIX 40 MG IV ×2 (08:29→14:59)
[2024-11-17] MEDS: HEPARIN 5000 UNITS SC ×3 (08:29→23:27)
[2024-11-17] MEDS: DECADRON 4 MG IV ×2 (08:29→19:56)
[2024-11-17] MEDS: PROTONIX IV 40 MG IV (08:29)
[2024-11-17] MEDS: PLAVIX 75 MG PO (08:30)
[2024-11-17] MEDS: LOW STRENGTH ASPIRIN 81 MG PO (08:30)
[2024-11-17] MEDS: TAMIFLU 30 MG PO ×2 (08:30→19:56)
--- NOTE | 2024-11-17 09:45 | PTCARENOTE ---
Addendum entered by Teresa Delacruz RN 11/17/24 18:03:
0700- pt right arm remains ecchymotic, dressing intact.
Addendum entered by Teresa Delacruz RN 11/17/24 11:06:
pt on aspiration precautions
Original Note:
pt received from previous rn aox4, placed on 6L midflow off bipap by RT. pt tolerating diet- seen by speech. pt requesting minced and soft foods- ok per speech therapy. kvo continues through right fem venous sheath, right fem sigrid zeroed and
functioning. pt nsr with bbb on monitor. no complaints at this time. mills draining yellow urine. plan of care discussed with pt and mds- pt verbalized understanding. all safety precautions in place, call bautista within reach. pt turns and repositions
self.
--- NOTE | 2024-11-17 10:01 | W.PN.CD ---
Today's Communication / Plan
-
on NC oxygen
She will discuss about PPM
Impression / Plan
-
This is a 79-year-old woman with advanced COPD and prior spontaneous left main coronary artery dissection presenting with respiratory failure, chest pain, and ST segment changes in the setting of underlying left bundle branch block. Emergent
coronary angiography was performed demosntrating patent LM-LCx stent and no significant CAD. However, patient had progressive hypercapnic respiratory failure requiring intubation.
# Hypercapnic respiratory failure
# severe COPD
# flu A
- appreciate hospitalist and critical care team input, management per them
# Complete heart block
- overnight on tele noted to have two episodes of ~5s complete heart block without escape
- Patient will discuss with daughter and family about PPM
# CAD s/p PCI to LM-LCx
# concern for STEMI
- no new cad on cath 11/16
- ST changes / troponin elevation likely myocardia injury in setting of severe hypercapnic respiratory failure
- cont. asa/plavix
# HFpEF
- elevated LVEDP in lab in setting of severe systemic hypertension
- echo 11/16 stable from prior with normal EF
- IV lasix given in lab, more given today
- can likely transition to PRN dosing tomorrow
# Atrial tachycardia, NSVT
- can resume patient's outpatient dilt/dig once closer to discharge
# s/p TAVR
- normal valve gradient in lab and echo
Echo 11/16
Left ventricle is small in size with mild concentric left ventricular
hypertrophy.
Normal left ventricular systolic function with no regional wall motion
abnormalities. LVEF 55-60%.
Normal right ventricular size and function.
Severe mitral annular calcification with mild mitral stenosis.
Well-seated AVR with peak/mean gradients across the aortic valve of 8/4 mmHg
and trace regurgitation.
Mild tricuspid regurgitation. No evidence of elevated pulmonary artery
pressures.
Physical Exam
Vital Signs/Labs
Vital Signs
Temp Pulse Resp BP Pulse Ox
98.6 F 96 15 156/55 99
11/17/24 09:37 11/17/24 09:00 11/17/24 09:00 11/17/24 04:57 11/17/24 09:00
11/16/24 11/17/24 11/18/24
06:59 06:59 06:59
Actual Weight 100 lb 1.438 oz 96 lb 8.999 oz
11/17/24 02:36
11/17/24 02:36
PT 13.6 Sec (11.4-14.6) 11/15/24 22:50
INR 0.99 11/15/24 22:50
APTT 113.2 Sec (23.4-35.0) H 11/15/24 22:50
Magnesium 2.2 mg/dl (1.6-2.3) 11/17/24 02:36
Triglycerides 92 mg/dl (10-149) 11/16/24 05:02
LDL Cholesterol, Calc 75 mg/dl 11/16/24 05:02
VLDL Cholesterol, Calc 18 mg/dl (0-30) 11/16/24 05:02
HDL Cholesterol 81 mg/dl 11/16/24 05:02
11/15/24
20:08
[id number]-[id number] Pept 6130
LAB Results
11/15/24 11/16/24 11/16/24
20:08 00:15 11:05
Troponin I 0.213 H* 0.468 H* D 0.422 H*
11/16/24 11/17/24
19:32 02:36
Troponin I 0.344 H* 0.291 H*
Physical Exam
Constitutional: No acute distress
EENT: Anicteric
Cardiovascular: Rhythm & rate is regular and Pedal edema is absent
Respiratory: Other (poor air movement b/l )
GI: Soft
Neuro/Psych: AO x 3
Data Reviewed
-
Date of Service: November 17, 2024
Medical Decision Making: Reviewed Test Results
EKG: Tracing Personally Visualized and interpreted (sr)
Echo: Report Reviewed by me
Labs: Labs Reviewed by me
--- NOTE | 2024-11-17 10:02 | PTOTSP ---
Speech Therapy Evaluation:
Pt presents with clinical signs of mild oropharyngeal dysphagia, likely chronic in nature related to advanced COPD and chronic hypoxemic/hypercapnic respiratory insufficiency (O2 and Trilogy dependent), compounded by current respiratory demand and
recent intubation. Pt with 2x coughs with regular solids, however no s/sx of aspiration with thin liquids, puree, or soft and bite sized solids. CXR with no acute pulmonary abnormality. WBC WNL. VSE completed 08/2024, which revealed silent
aspiration of thin liquids via consecutive straw sips.
Recommend:
1. Diet downgrade to baseline diet of IDDSI Level 6 (soft and bite sized) solids; thin liquids via small single sips (no straws)
2. Medication whole versus crushed in applesauce per pt preference
3. Distant SPV with PO intake
4. Aspiration and reflux precautions: upright to 90 degrees, small single sips/bites, avoid straw, pick soft/moist foods, remain upright for 30 minutes after PO intake as a reflux precaution
5. Oral care 3x/daily
6. Ongoing ST at acute care level to monitor tolerance of diet and determine if VSE warranted
[2024-11-17] MEDS: DUONEB INH (11:18)
--- NOTE | 2024-11-17 11:31 | PTCARENOTE ---
per cardiology ok to remove fem sigrid and sheath- jacob inpatient services rn from [facility] in to remove line- fem stop applied. pt educated and verbalized understanding to bed rest orders
--- NOTE | 2024-11-17 11:35 | W.PN.CARD.SR ---
Sheath/IABP Sheath Removal
Sheath Removal
Right Arterial Femoral:
Site appearance prior to sheath removal: Intact
Sheath removed by:: Physician first assistant manager (NURSE PRACTITIONER)
Name of associate removing sheath: Pantera BARTLETT
Time of sheath removal: 11:00
Time hemostasis achieved: 11:40
Site appearance post sheath removal: Intact
Method of Hemostasis Post Sheath Removal: External Pressure Device (Fem stop applied)
Name of device: Fem-stop
Dressing dry and intact?: Yes
Right Venous Femoral:
Site appearance prior to sheath removal: Intact
Sheath removed by:: Physician first assistant manager (Nurse Practitioner)
Name of associate removing sheath: Pantera RAMSAYNP
Time of sheath removal: 11:05
Time hemostasis achieved: 11:40
Site appearance post sheath removal: Intact
Method of Hemostasis Post Sheath Removal: External Pressure Device
Name of device: Fem-stop
Dressing dry and intact?: Yes
Comments: Manual pressure applied for 25 mins and then fem stop was applied
--- NOTE | 2024-11-17 13:57 | PTCARENOTE ---
fem stop removed per protocol and order. gauze and tegarderm applied. site intact, remains with good pulses.
--- NOTE | 2024-11-17 15:27 | PTCARENOTE ---
assessment unchanged, groin site c/d/i, remains with good pulses. pt resting comfortably, family at the bedside.
--- NOTE | 2024-11-17 16:05 | PTCARENOTE ---
Dr. Higgins notified of pts bp post hydralazine. okay with bp in 140s to 150s. pt asymptomatic. Dr. Higgins ordered to give further hydralazine for systolic>180
--- NOTE | 2024-11-17 17:03 | PTCARENOTE ---
mills removed at 1700. due to void at 2300.
--- NOTE | 2024-11-17 20:00 | PTCARENOTE ---
assumed care, pt ox3 makes needs known WHEELER and denies pain, NS on the monitor B/L SCD + pulses, Midflow 5L diminished and coarse throughout SpO2 95%, BSx4 hypoactive, mills removed pt due to void by 2300, B/L extremity bruising RFA skin tear, 20G L
wrist, 20G LAC, 20G RAC call bautista within reach, daughter @ bedside and updated, otherwise refer to documentation.
--- NOTE | 2024-11-17 20:52 | W.PN.UPDATE ---
Update Note
Progress Note Update
2044- Heart rate sinus tachycardia 120s, SBP 150s. Head Of Human Resources Dr. Higgins called and updated, recommendations received: obtain EKG, if afib may consider starting amiodarone gtt, if just sinus tachycardia continue to monitor. Concern for recent
heart block during stay and possible pause conversion vs heart block reoccurring (holding dig/cardizem which patient takes outpatient for now).
--- NOTE | 2024-11-17 23:57 | PTCARENOTE ---
systems reviewed, pt voided on bedpan bladder scanned for 180, HR elevated TERMINATION CLERK made aware, chg bath, dressing changed on RFA, midflow down to 3L, otherwise refer to documentation
[2024-11-18] VITALS (19 sets, daily range): BP systolic 117–159; BP diastolic 51–76; PULSE 2–101; O2SAT 97–98; BMI 18.7
[2024-11-18 05:04] LABS: Blood Urea Nitrogen 49 mg/dl (7-17); Calcium 7.6 mg/dl (8.4-10.2); Chloride 89 mmol/L (98-107); Estimated Creatinine Clearance 41 ml/min; Glucose 123 mg/dl (70-99); Magnesium 2.5 mg/dl (1.6-2.3); Sodium 138 mmol/L (135-145); Triglycerides 101 mg/dl (10-149); eGFR > 60.00
[2024-11-18 05:18] LABS: % Immature Granulocytes 0.4 % (0-0.5); % Lymphocytes 10.4 % (20.5-51.1); % Monocytes 6.5 % (1.7-9.3); % Neutrophils 82.7 % (42.2-75.2); Absolute Lymphocytes 0.6 10^3/uL (1.2-3.4); Absolute Monocytes 0.4 10^3/uL (0.1-0.6); Absolute Neutrophils 4.6 10^3/uL (1.4-6.5); Hematocrit 28.7 % (37.0-47.0); Hemoglobin 8.9 g/dL (12.0-16.0); Mean Corpuscular Hgb 31.7 pg (27.0-31.0); Mean Corpuscular Volume 102.1 fL (81.0-99.0); Mean Platelet Volume 10.7 fL (7.4-10.4); Nucleated Red Blood Cells % 0 %; Platelet Count 80 10^3/uL (130-400); Red Blood Cell Count 2.81 10^6/uL (4.20-5.40); Red Cell Dist. Width 14.2 % (11.5-14.5); White Blood Cell Count 5.6 10^3/uL (4.8-10.8)
[2024-11-18 05:25] LABS: Carbon Dioxide 42 mmol/L (22-30)
[2024-11-18] MEDS: SYNTHROID 50 MCG PO (06:16)
--- NOTE | 2024-11-18 07:40 | W.PN.INTV ---
Today's Communication / Plan
Recommendations
Continue with management per cardiology
Continue BiPAP as needed during the day and nightly
Follow electrolytes
Being evaluated for possible pacemaker
For transfer out of ICU. Pulmonary will continue to follow
Assessment
-
79yo F with PMH advanced COPD on home O2 and trilogy vent at night, ASCVD, CAD s/p stent 08/2024, HFpEF who presented to ED 11/15/24 for shortness of breath. History obtained from chart review as patient remains intubated at this time. Prior to
admission, had cough for 3-4 days and became progressively lethargic and dyspneic. In the ED, she reported chest tightness, had an elevated troponin, and EKG changes concerning for STEMI. She was taken to phlebotomy lab assistant urgently, and cath was negative for
significant stenosis. She was started on BiPAP due to lethargy and after ABG showed hypercapnic respiratory failure, she was intubated for improved ventilation. Flu positive. Web Analytics Specialist consulted for ventilator/critical care management.
Acute on chronic hypercapnic/hypoxemic respiratory failure
Intubated 11/15
Extubated 11/16
Influenza positive
Elevated troponin- likely demand ischemia from acute illness, hypoxemia; cardiac cath negative 11/15/24
Elevated pressures during cath, suspect volume overload
Episodic complete heart block per telemetry
Conditions prior to admission:
Advanced COPD on home O2 and trilogy vent at night
ASCVD, CAD, PAD
HFpEF
Chronic LBBB
HTN
Hypothyroidism
Aortic stenosis s/p TAVR
Anxiety
Plan/recommendations
At this time, patient appears to be improved
Extubated 11/16
Maintain on noninvasive ventilation/BiPAP overnight
ABG reviewed, pCO2 66
Lower extremity Dopplers negative for DVT
Right groin sheath/femoral line removed 11/17
Moving forward
Continue tamiflu and supportive measures
Discontinue zosyn, do not suspect bacterial infection at this time
Transition to oral prednisone with taper
Follow up on ECG- question of complete heart block
Trend troponin- elevated on admission, then trended up likely secondary to cardiac cath
Continue IV lasix for diuresis
Continue plavix, aspirin
Echocardiogram normal biventricular function, well-seated AVR
Telemetry reviewed. Episodes of heart block noted. Telemetry
Pacemaker is being considered
Cardiology following
Tolerating diet
Discontinue IV fluids
Monitor electrolytes, supplement as needed
Monitor BG, will reassess insulin requirements if needed
Discontinue mills
Code status: DNR
VTE ppx: subcutaneous heparin q8h, SCDs
Reviewed with critical care nursing, respiratory care
Okay for transfer out of ICU. Pulmonary will continue to follow
Subjective Dataa
Subjective Data
Date of Service:
Date of Service: November 18, 2024
Subjective:
Patient continues to improve overall. Appears to be more awake, less tired. Tolerated BiPAP overnight. Denies chest pain, nausea, abdominal pain. Right femoral A-line and sheath removed by CT surgery PA 11/17
Objective Data
Data Reviewed
Vital Signs / I&O / Oxygen:
Vital Signs
Temp Pulse Resp BP Pulse Ox
98.1 F 79 23 136/56 97
11/18/24 07:00 11/18/24 06:00 11/18/24 06:00 11/18/24 06:00 11/18/24 06:00
Intake and Output
11/17/24 11/18/24 11/19/24
06:59 06:59 06:59
Intake Total 364.1 / 374.1 280 / 280
Output Total 1620 / 1640 1060 / 1060
Balance -1255.9 / -1265.9 -780 / -780
SaO2 [ASV] 96
SaO2 [A/C] 99
SaO2 97
Nasal Cannula flow liters per 5
minute
Physical Exam
General: Comfortable, Other (Cachectic) and Other (Right groin intact)
HEENT: Normocephalic and Anicteric
Cardiovascular: S1-S2, Regular Rhythm ( mildly tachycardic), Murmur and Rub (n)
Respiratory: Wheeze (n), Crackles (n), Rhonchi (n), Accessory Resp Muscle Use (Mild use of accessory muscles with conversation), Stridor (n) and Other (Decreased breath sounds)
GI: Soft, Non Distended and Non Tender
Neurology: Awake, Alert and No Motor Deficits (Moves all extremities, generally weak)
Skin: Jaundice (n), Rash (n) and Bruising (Few scattered bruising)
Labs/Micro/Reports
Lab Data
11/18/24 04:03
11/18/24 04:03
Microbiology
11/16/24 02:56 Nasal Swab Influenza Types A & B (APOLINAR) - Final
Influenza A Positive, NAAT
[2024-11-18] MEDS: DUONEB 3 ML INH ×4 (08:28→20:42)
[2024-11-18] MEDS: SYMBICORT 160/4.5 MCG INHALER 2 PUFF INH ×2 (08:28→20:43)
[2024-11-18] MEDS: LOW STRENGTH ASPIRIN 81 MG PO (08:34)
--- NOTE | 2024-11-18 08:34 | W.PN.HOSP.TC ---
Today's Communication/Plan
-
tansfer to tele
IV lasix to oral
PT/OT
cont BiPAP at night
Assessment / Plan
Assessment / Plan
pt is a 79 year old female
COPD with Acute Exacerbation likely from influenza A (positive) with Acute on Chronic Hypoxemic and Hypercapnic Respiratory Failure--intubated in laborer starch factory, now extubated-- ABG on BiPAP with pCO2 100 (baseline around 60)-- IV steroids
taper/discontinue quickly if able-- stop IV abx--influenza positive, cont tamiflu-- Follow fever curve, etc. Note history of silent aspiration by VSE--COVID neg
ASCVD/Myocardial Injury--Initial EKG suspicious for STEMI (but NOT) and laborer starch factory activated- No significant stenosis/occlusion appreciated- Stent placed in 08/2024 (for L main dissection) is patent- Chronic LBBB with periods of complete heart block
per cards, discussing PPM- follow EKG for changes--discussion with cards re: pacer in process- Continue DAPT--apprec cards- Continue to trend troponin - Myocardial injury likely on the basis of respiratory distress +/- CHF, etc.
Acute on Chronic HFpEF- BNP not significantly changed from prior- Elevated pressures noted during cath- Change IV Lasix to oral and follow I/Os, daily weights, etc.- Update Echo- Cardio eval
Essential Hypertension- BP elevated likely due to volume overload- IV diuresis as noted above- Follow for changes in BP control.
Hypothyroidism- Stable. Continue T4 supplementation.
Aortic Stenosis s/p TAVR--Descending Thoracic Aorta Stent
DVT Prophylaxis: Subcut Heparin
Code Status: DNR
can transfer to tele
Anticipated Discharge: 24 - 48 hours
Subjective/Interval History
-
Date of Service: November 18, 2024
pt wants bipap off
Objective Data
-
Labs:
Laboratory Results
11/18/24
04:03
WBC 5.6
Hgb 8.9 L
Hct 28.7 L
Plt Count 80 L
Sodium 138
Potassium 4.0
Chloride 89 L
Carbon Dioxide 42 H
BUN 49 H
Creatinine 0.8
Glucose 123 H
Calcium 7.6 L
Vital Signs:
max temp for 24 hours
11/17/24
19:30
Temp 98.9 F
Vital Signs
Temp Pulse Resp BP Pulse Ox
98.1 F 98 15 136/56 96
11/18/24 07:00 11/18/24 08:31 11/18/24 08:31 11/18/24 06:00 11/18/24 08:31
I&O
11/17/24 11/18/24 11/19/24
06:59 06:59 06:59
Intake Total 364.1 / 374.1 280 / 280
Output Total 1620 / 1640 1060 / 1060
Balance -1255.9 / -1265.9 -780 / -780
Review of Systems
-
All other systems: Reviewed and negative
Physical Exam
-
General: Other (frail elderly female in NAD)
HEENT: Normocephalic and Atraumatic
Respiratory: Clear to Auscultation; Negative Wheezes or Rhonchi
Cardiac: Regular Rhythm and S1/S2; Negative Murmur
GI: Soft, Nontender, Nondistended and Normal Bowel Sounds
Musculoskeletal: No Clubbing, No Cyanosis and No Edema
Neuro: Awake and Alert
Psych: Calm
[2024-11-18] MEDS: LASIX 40 MG IV (08:35)
[2024-11-18] MEDS: HEPARIN 5000 UNITS SC ×2 (08:35→15:26)
[2024-11-18] MEDS: PLAVIX 75 MG PO (08:35)
[2024-11-18] MEDS: TAMIFLU 30 MG PO ×2 (08:35→19:47)
[2024-11-18] MEDS: NSS (PRESERVATIVE FREE) 10 ML IV (08:35)
[2024-11-18] MEDS: PROTONIX IV 40 MG IV (08:35)
[2024-11-18] MEDS: DECADRON 4 MG IV (08:35)
[2024-11-18] MEDS: LEXAPRO 20 MG PO (09:19)
--- NOTE | 2024-11-18 09:51 | PTCARENOTE ---
pt received this am removed from bipap by respiratory therapy to 3LNC. no complaints at this time. Plan of care discussed with pt and mds. pt verbalized understanding to plan of care. right arm remains bruised, dressing intact. right groin site
c/d/i. pt with good pulses. nsr with bbb on monitor. all safety precautions in place, call bautista within reach. pt urinating with purewick.
--- NOTE | 2024-11-18 11:18 | PTCARENOTE ---
report given to Fabiana Gaston on 2N. pt sent with belongings in wheelchair and with family. pt worked with pt/ot 1 assist. pt voided on bedside commode.
[2024-11-18] MEDS: MUCINEX 600 MG PO (11:30)
--- NOTE | 2024-11-18 12:12 | W.PN.CD ---
Today's Communication / Plan
-
no PPM at this time per patient
Impression / Plan
-
This is a 79-year-old woman with advanced COPD and prior spontaneous left main coronary artery dissection presenting with respiratory failure, chest pain, and ST segment changes in the setting of underlying left bundle branch block. Emergent
coronary angiography was performed demosntrating patent LM-LCx stent and no significant CAD. However, patient had progressive hypercapnic respiratory failure requiring intubation.
# Hypercapnic respiratory failure
# severe COPD
# flu A
- appreciate hospitalist and critical care team input, management per them
# Complete heart block
- overnight on tele noted to have two episodes of ~5s complete heart block without escape
- at this point does NOT want PPM
# CAD s/p PCI to LM-LCx
# concern for STEMI
- no new cad on cath 11/16
- ST changes / troponin elevation likely myocardia injury in setting of severe hypercapnic respiratory failure
- cont. asa/plavix
# HFpEF
- elevated LVEDP in lab in setting of severe systemic hypertension
- echo 11/16 stable from prior with normal EF
- PO lasix given in lab, more given today
- can likely transition to PRN dosing tomorrow
# Atrial tachycardia, NSVT
- will discuss patient's outpatient dilt/dig once closer to discharge
# s/p TAVR
- normal valve gradient in lab and echo
Echo 11/16
Left ventricle is small in size with mild concentric left ventricular
hypertrophy.
Normal left ventricular systolic function with no regional wall motion
abnormalities. LVEF 55-60%.
Normal right ventricular size and function.
Severe mitral annular calcification with mild mitral stenosis.
Well-seated AVR with peak/mean gradients across the aortic valve of 8/4 mmHg
and trace regurgitation.
Mild tricuspid regurgitation. No evidence of elevated pulmonary artery
pressures.
Physical Exam
Vital Signs/Labs
Vital Signs
Temp Pulse Resp BP Pulse Ox
98.1 F 96 18 131/51 94
11/18/24 11:15 11/18/24 11:16 11/18/24 11:16 11/18/24 11:15 11/18/24 11:36
11/17/24 11/18/24 11/19/24
06:59 06:59 06:59
Actual Weight 96 lb 8.999 oz 95 lb 10.89 oz
11/18/24 04:03
11/18/24 04:03
PT 13.6 Sec (11.4-14.6) 11/15/24 22:50
INR 0.99 11/15/24 22:50
APTT 113.2 Sec (23.4-35.0) H 11/15/24 22:50
Magnesium 2.5 mg/dl (1.6-2.3) H 11/18/24 04:03
Triglycerides 101 mg/dl (10-149) 11/18/24 04:03
LDL Cholesterol, Calc 75 mg/dl 11/16/24 05:02
VLDL Cholesterol, Calc 18 mg/dl (0-30) 11/16/24 05:02
HDL Cholesterol 81 mg/dl 11/16/24 05:02
11/15/24
20:08
[id number]-Cvemifwmwgk Pept 6130
LAB Results
11/15/24 11/16/24 11/16/24
20:08 00:15 11:05
Troponin I 0.213 H* 0.468 H* D 0.422 H*
11/16/24 11/17/24
19:32 02:36
Troponin I 0.344 H* 0.291 H*
Physical Exam
Constitutional: No acute distress and Comfortable
EENT: Anicteric
Cardiovascular: Rhythm & rate is regular
Respiratory: Other (improved air movement b/l)
GI: Soft
Neuro/Psych: Alert and Oriented
Data Reviewed
-
Date of Service: November 18, 2024
Medical Decision Making: Reviewed Test Results
EKG: Tracing Personally Visualized and interpreted (sr)
Labs: Labs Reviewed by me
--- NOTE | 2024-11-18 19:42 | PTCARENOTE ---
During shift change pt noticed new right upper arm swelling. DNR/pt band were taunt on skin- this was new finding. Patient said she woke up from her nap with arm like this. Right radial pulse intact, pt denies numbness /tingling in extremity but
endorses generalized discomfort regarding the swelling. RN also took down skin tear wrap, as that was tight on arm as well and redressed it looser. scallop binder provider made aware of the new swelling. Extensive right upper arm bruising is unchanged from
admission to [address] [place] [address] from icu.
[2024-11-19] VITALS (10 sets, daily range): BP systolic 104–140; BP diastolic 40–49; PULSE 2–101; BMI 18.7
[2024-11-19] MEDS: HEPARIN 5000 UNITS SC ×3 (00:18→15:01)
--- NOTE | 2024-11-19 01:06 | PTCARENOTE ---
Pt.'s right arm from above elbow to wrist noted to be newly edematous during walking rounds, +2. Area already bruised (CC site) with no new changes to bruising (per shift report). Radial pulse WNL and sensation/movement intact to hand and fingers.
Skin tear present on anterior lower arm below elbow with tight dressing present. Dressing removed and redone loosely; ID band moved to opposite arm. Hospitalist TRI Stapleton notified and came to bedside to assess, order for ultrasound placed. Pt.
had study, awaiting official report. Pt. denies any pain at this time.
[2024-11-19] MEDS: TYLENOL 650 MG PO ×2 (03:24→12:13)
--- NOTE | 2024-11-19 03:30 | PTCARENOTE ---
Right arm ultrasound results TT'd to hospitalist TRI Stapleton; decision made to repeat study in AM, order in. Pt. also complaining of pain level 8/10 in right arm, radial pulse and sensation/movement WNL. Area does not appear to be more edematous or
ecchymotic. Again hospitalist TRI notified, order for Tylenol obtained and given.
[2024-11-19] MEDS: SYNTHROID 50 MCG PO (04:49)
[2024-11-19 05:16] LABS: B.E. 24.8 mmol/L; PCO2 54 mmHg (32-35); PO2 117 mmHg (83-108); pH 7.57 (7.35-7.45)
[2024-11-19 05:19] LABS: HCO3 49.5 mmol/L (21-28)
--- NOTE | 2024-11-19 05:51 | PTCARENOTE ---
Critical bicarb of 49.5 from this morning's ABG reported to hospitalist TRI Stapleton. Pt. currently on 3L NC (didn't want to go back on bipap after ABG) with pulse ox 91%, no distress assessed.
[2024-11-19] MEDS: DUONEB 3 ML INH ×3 (06:38→20:42)
[2024-11-19] MEDS: SYMBICORT 160/4.5 MCG INHALER 2 PUFF INH ×2 (06:39→20:42)
[2024-11-19] MEDS: DELTASONE 10 MG PO (07:37)
[2024-11-19] MEDS: VISBIOME 1 CAP PO (07:37)
[2024-11-19] MEDS: LASIX 40 MG PO (07:37)
[2024-11-19] MEDS: LEXAPRO 20 MG PO (07:37)
[2024-11-19] MEDS: THERAGRAN 1 TABLET PO (07:37)
[2024-11-19] MEDS: LIPITOR 40 MG PO (07:37)
[2024-11-19] MEDS: PLAVIX 75 MG PO (07:38)
[2024-11-19] MEDS: ASPIR LOW (ENTERIC COATED) 81 MG PO (07:38)
[2024-11-19] MEDS: TAMIFLU 30 MG PO ×2 (07:38→20:35)
--- NOTE | 2024-11-19 09:05 | CM ---
Addendum entered by Deneen Hightower 11/19/24 15:06:
Bed available at [facility] pending physician approval of medical stability.
Original Note:
CM spoke with patient amy who indicated patient has an blood clot in her arm and that she would like a referral to [facility] and [facility] at discharge. CM will send referral via all scripts. CM will continue to follow for discharge planning needs.
Plan;SNF
--- NOTE | 2024-11-19 09:10 | W.PN.PUL3 ---
Today's Communication / Plan
-
Diet as per DOUGH BRAKER
Continue Tamiflu
DAPT as per cardiology with eventual changing Plavix to Eliquis and continue ASA
Hold off on resuming antibiotics at this time given CXR findings today of faint RLL opacity which could very well be summation of shadows
Check/trend procal
Continue prednisone taper; goal BG >100 and <180
Gently diurese and monitor I/O and trend UOP
PT/OT
Pulmonary service will continue to briefly follow
Assessment
-
79yo F with PMH advanced COPD on home O2 and trilogy vent at night, ASCVD, CAD s/p stent 08/2024, HFpEF who presented to ED 11/15/24 for shortness of breath. History obtained from chart review as patient remains intubated at this time. Prior to
admission, had cough for 3-4 days and became progressively lethargic and dyspneic. In the ED, she reported chest tightness, had an elevated troponin, and EKG changes concerning for STEMI. She was taken to tutorial laboratory supervisor urgently, and cath was negative for
significant stenosis. She was started on BiPAP due to lethargy and after ABG showed hypercapnic respiratory failure, she was intubated for improved ventilation. Flu positive. Biological Technician consulted for ventilator/critical care management.
Impression:
Acute on chronic hypercapnic/hypoxemic respiratory failure
Intubated 11/15
Extubated 11/16
Influenza-A positive
Elevated troponin- likely demand ischemia from acute illness, hypoxemia; cardiac cath negative 11/15/24
Elevated pressures during cath, suspect volume overload
Episodic complete heart block per telemetry
Physical deconditioning
Conditions prior to admission:
Advanced COPD on home O2 and trilogy vent at night
ASCVD, CAD, PAD
HFpEF
Chronic LBBB
HTN
Hypothyroidism
Aortic stenosis s/p TAVR
Anxiety
Plan/recommendations
At this time, patient has improved
Extubated 11/16
Maintain on noninvasive ventilation/BiPAP with sleep
Blood gas from this morning shows respiratory alkalosis with pH 7.57, pCO2 54 --> give diamox today and continue to trend blood gas with next tomorrow AM
Lower extremity Dopplers negative for DVT
Continue tamiflu and supportive measures
Start Mucinex and continue with DuoNebs QID as patient has a worsening cough with phlegm production
Receive Zosyn on 11/16/2024, which was discontinued given low suspicion for bacterial infection
CXR from today (11/19/2024) shows possible opacification in the right lower lobe, however patient remains nontoxic-appearing with normal WBC and afebrile; continue to monitor off antibiotics for now and if patient spikes fever or develops
leukocytosis then would consider restarting antibiotics at that time
Check procal
Continue prednisone with taper
Follow up on ECG- question of complete heart block --> last EKG on 11/17/2024 showed sinus tachycardia with LBBB
Cardiology following - no indication for PPM at this time as per EP
Continue plavix, aspirin --> cardiology plans to eventually switch plavix to Eliquis
Troponin peaked at 0.468 on 11/16/2024 � no longer need to continue trending at this time as it was elevated on admission, then trended up likely secondary to cardiac cath
Continue lasix for diuresis --> now on 40mg PO daily
Echocardiogram normal biventricular function, well-seated AVR, with low peak/mean gradients; there was severe mitral annular calcification albeit with mild mitral stenosis
Monitor on telemetry
Continue diet as per DOUGH BRAKER s/p VSE performed today, which showed silent aspiration with thin liquids and moderately thick liquids
Monitor electrolytes, supplement as needed to keep K>4, Mg>2
Monitor BG with goal >100 and <180ng/dL
Code status: DNR
VTE ppx: subcutaneous heparin q8h, SCDs
Pulmonary service will continue to briefly follow along
Total time spent today was 37 minutes for this encounter. Time includes reviewing laboratory test/imaging results, reviewing pertinent medical records, obtaining and reviewing medical history, performing an appropriate exam, ordering medications,
tests and procedures. Time also includes documentation of this encounter, coordinating patient care and communicating with other healthcare professionals. Total time does not include separately billed tests performed on this date of service.
Subjective Data
-
Date of Service:
Date of Service: November 19, 2024
Chief Complaint: Pulmonary Follow Up
Subjective:
Patient seen and evaluated today at bedside. Patient's daughter, Nathalia, at bedside and all questions were answered. No acute events reported from overnight.
Review of Systems
General: Other (Negative unless mentioned above)
Objective Data
Data Reviewed
Vital Signs / I&O / Oxygen:
Vital Signs
Temp Pulse Resp BP Pulse Ox
98.0 F 105 17 110/40 99
11/19/24 07:18 11/19/24 07:37 11/19/24 07:18 11/19/24 07:37 11/19/24 07:58
Intake and Output
11/18/24 11/19/24 11/20/24
06:59 06:59 06:59
Intake Total 280 / 280 840 / 840
Output Total 1060 / 1060 300 / 300
Balance -780 / -780 540 / 540
SaO2 [ASV] 96
SaO2 [A/C] 99
SaO2 99
Nasal Cannula flow liters per 4
minute
Physical Exam
General: Respiratory Distress (negative), Comfortable, Chills (negative) and Sweats (negative)
HEENT: Normocephalic and Anicteric
Cardiovascular: S1-S2, Rub (negative) and Peripheral Edema (negative)
Respiratory: Wheeze (negative), Crackles (negative), Rhonchi and Other (Diminished breath sounds bilaterally)
GI: Soft, Non Distended, Non Tender and Normal Bowel Sounds
Neurology: Awake, Alert and Tremors (negative)
Skin: Warm, Dry and Bruising (Scattered)
Labs/Micro/Reports
Laboratory Results
11/19/24
04:50
pH 7.57 H
pCO2 54 H
pO2 117 H
HCO3 49.5 H*
O2 Delivery Level off bipap, 3 l
--- NOTE | 2024-11-19 09:15 | W.PN.CD ---
Today's Communication / Plan
-
- Continue supportive care
- OK to start Eliquis and switch Plavix to Eliquis
- No PPM at this time
Impression / Plan
-
This is a 79-year-old woman with advanced COPD and prior spontaneous left main coronary artery dissection presenting with respiratory failure, chest pain, and ST segment changes in the setting of underlying left bundle branch block. Emergent
coronary angiography was performed demosntrating patent LM-LCx stent and no significant CAD. However, patient had progressive hypercapnic respiratory failure requiring intubation.
# Hypercapnic respiratory failure
# severe COPD
# flu A
- appreciate hospitalist and critical care team input, management per them
# Complete heart block
- Intermittent with two episodes of ~5s complete heart block without escape
- Now off the Diltiazem - rates are elevated with sinus tach
- Discussed need for PPM - COLLEGE COACH with wide QRS and discussed with patient and her daughter on the phone who still are not interested in any devices
- Has ecchymosis, DVT and recent stent - with upper ext DVT, would recommend leadless PPM if needed.
- at this point does NOT want PPM
# CAD s/p PCI to LM-LCx
# STEMI on EKG but no new CAD
- no new cad on cath 11/16
- ST changes / troponin elevation likely myocardia injury in setting of severe hypercapnic respiratory failure
- cont. asa/plavix - starting high dose anticoagulation due to DVT
-Can switch Plavix to Eliquis 10 mg BID (Weight is low and almost 80) - so if concern of bleeding then can switch to 5 mg BID
# HFpEF
- elevated LVEDP in lab in setting of severe systemic hypertension
- echo 11/16 stable from prior with normal EF
- PO lasix given in lab, more given today
- can likely transition to PRN dosing tomorrow
# Atrial tachycardia, NSVT
- will discuss patient's outpatient dilt/dig once closer to discharge
# s/p TAVR
- normal valve gradient in lab and echo
Echo 11/16
Left ventricle is small in size with mild concentric left ventricular
hypertrophy.
Normal left ventricular systolic function with no regional wall motion
abnormalities. LVEF 55-60%.
Normal right ventricular size and function.
Severe mitral annular calcification with mild mitral stenosis.
Well-seated AVR with peak/mean gradients across the aortic valve of 8/4 mmHg
and trace regurgitation.
Mild tricuspid regurgitation. No evidence of elevated pulmonary artery
pressures.
Physical Exam
Vital Signs/Labs
Vital Signs
Temp Pulse Resp BP Pulse Ox
98.0 F 105 17 110/40 99
11/19/24 07:18 11/19/24 07:37 11/19/24 07:18 11/19/24 07:37 11/19/24 07:58
11/18/24 11/19/24 11/20/24
06:59 06:59 06:59
Actual Weight 43.4 kg 43.454 kg
PT 13.6 Sec (11.4-14.6) 11/15/24 22:50
INR 0.99 11/15/24 22:50
APTT 113.2 Sec (23.4-35.0) H 11/15/24 22:50
Magnesium 2.5 mg/dl (1.6-2.3) H 11/18/24 04:03
Triglycerides 101 mg/dl (10-149) 11/18/24 04:03
LDL Cholesterol, Calc 75 mg/dl 11/16/24 05:02
VLDL Cholesterol, Calc 18 mg/dl (0-30) 11/16/24 05:02
HDL Cholesterol 81 mg/dl 11/16/24 05:02
11/15/24
20:08
Tfb-A-Zyxitaikkzh Pept 6130
LAB Results
11/16/24 11/16/24 11/17/24
11:05 19:32 02:36
Troponin I 0.422 H* 0.344 H* 0.291 H*
Physical Exam
Constitutional: No acute distress and Comfortable
EENT: Anicteric and Moist mucous membranes
Cardiovascular: Rhythm & rate is regular (sinus tach)
Respiratory: Respiratory effort normal and Crackles Present
GI: Soft, Non tender and Normal bowel sounds
Neuro/Psych: Alert, Oriented and AO x 3
Other: Skin (ecchymosis)
Data Reviewed
-
Date of Service: November 19, 2024
Medical Decision Making: Reviewed Test Results, Test Interpretation and Review of Case with other Provider
EKG: Tracing Personally Visualized and interpreted
Echo: Report Reviewed by me
X-Ray/CT/US/MRI/NUC/PET: Image Personally Visualized and interpreted
Medical Tests (PFT, Pathology etc): Discussed with Physician, Discussed with Patient and Discussed with Family
Labs: Labs Reviewed by me
Old Records: Reviewed
--- NOTE | 2024-11-19 10:48 | WOUNDNOTE ---
WO RN note: Patient admitted with
See H&P for complete history.
PMH: COPD, influenza A, HTN, aortic stenosis
Wound Location and type/assessment: Met patient in room while she was eating breakfast. Patient admitted with two skin tears on right upper arm. Right arm ecchymotic, swollen, recent confirmation of thrombus in right arm. Skin tears with increased
sanguinous drainage due increased swelling. This narrative writer attempted to use steri-strips to open skin tear, but patient could not tolerate. Spoke to RN Isabell who just repositioned patient off sacrum and changed foam bandage. Isabell reports stage 1 to
sacrum. Heels intact and off-loaded on pillows.
Appetite: Patient reports fair, low BMI at 18.7. Patient is on a soft bite diet and was eating breakfast during assessment.
Pressure redistribution devices in place: Versa Care Air
Plan: Clean dressing applied with adaptic, ABD and do. May use alginate over adaptic for heavy drainage. Will confirm orders with hospitalist and update nurse. Patient has several comorbidities including compromised respiratory status and low
BMI. Wounds may worsen and new wounds may develop even with optimal care. Updated care plan and will follow as needed. Plan is for SNF.
Note to case management of equipment requested for discharge:
Recommend follow up at wound care center upon discharge.
[2024-11-19 11:28] LABS: Hematocrit 26.4 % (37.0-47.0); Hemoglobin 8.2 g/dL (12.0-16.0); Mean Corp Hgb Conc. 31.1 g/dL (33.0-37.0); Mean Corpuscular Hgb 32.3 pg (27.0-31.0); Mean Corpuscular Volume 103.9 fL (81.0-99.0); Platelet Count 55 10^3/uL (130-400); Red Blood Cell Count 2.54 10^6/uL (4.20-5.40); Red Cell Dist. Width 14.1 % (11.5-14.5); White Blood Cell Count 5.7 10^3/uL (4.8-10.8)
[2024-11-19 12:04] LABS: Blood Urea Nitrogen 49 mg/dl (7-17); Calcium 7.9 mg/dl (8.4-10.2); Chloride 89 mmol/L (98-107); Estimated Creatinine Clearance 36 ml/min; Glucose 102 mg/dl (70-99); Magnesium 2.5 mg/dl (1.6-2.3); Potassium 3.7 mmol/L (3.5-5.1); Sodium 138 mmol/L (135-145); eGFR > 60.00
[2024-11-19] MEDS: DUONEB INH (12:04)
--- NOTE | 2024-11-19 12:18 | PTOTSP ---
Addendum entered and electronically signed by ST Nory 11/19/24 12:29:
- ADDENDUM - DIET: REGULAR THIN LIQUID CONSISTENCY ONLY; NO SOLIDS; CRITICAL MEDS ONLY WHOLE IN PUREE.
Original Note:
ST Follow-Up
Pt currently presents with clinical signs consistent with mild to moderate oral dysphagia characterized by prolonged mastication and bolus formation as well as suspected moderate pharyngoesophageal dysphagia characterized by globus sensation,
primarily after solid ingestion, as well as delayed coughing after ingestion of solids and liquids.
Recommendations:
- DOWNGRADE to clear liquid diet; critical meds only whole in puree.
- Aspiration and reflux precautions - HOB upright as often as possible; small single cup sips; no straws.
- Video fluroscopic swallow study (VFSS) with esophageal phipps to gather more information about current swallowing function.
- MINERALOGY PROFESSOR to provide additional recommendations after completion of VFSS.
[2024-11-19 12:22] LABS: Carbon Dioxide 44 mmol/L (22-30)
--- NOTE | 2024-11-19 13:00 | PTOTSP ---
Speech Language Pathology
VIDEOFLUOROSCOPIC SWALLOWING EXAMINATION (VSE) completed. Mild oral and mod pharyngeal dysphagia noted. Pt with penetration to the level of the vocal folds (PAS 5) with thin liquids via tsp/cup and mildly thick liquids via cup. Thin liquids via
consecutive straw sips initially resulted in penetration to the level of the vocal folds with eventual silent aspiration (PAS 8). Moderately thick liquids via tsp initially with penetration to the level of the vocal folds with transient aspiration
eventually (PAS 6). No penetration/aspiration noted with mildly thick liquids via tsp, puree, or regular solids.
Esophageal sweep demonstrated significant residue without backflow. Swallow function worse than on recent VSE in August. Suspect post-extubation dysphagia.
Recommend:
(1) IDDSI Level 6 (Soft/bite-sized) and thin liquids
(2) Aspiration precautions: single cup sips with use of chin tuck, slow rate, sit upright, intermittent cough/reswallow
(3) Meds whole in puree
(4) Consider GI consult
(5) MEDICAL LABORATORY TECHNICIAN to continue to follow
--- NOTE | 2024-11-19 13:30 | W.PN.HOSP.TC ---
Addendum entered and electronically signed by Ralph Junior DO, Resident 11/20/24 11:51:
BMI not significant
Addendum entered and electronically signed by Krystal Dupree MD 11/19/24 15:19:
I saw and evaluated the patient independently. I reviewed the resident�s note and agree with findings and plan as documented by Dr. Junior.
GENERAL: elderly frail female in no apparent distress
HEENT: NC/AT--O2 NC in place (wears at home)
HEART: regular rate and rhythm, +S1, +S2
LUNGS : clear to auscultation bilaterally, decreased breath sounds
ABDOM: soft, nontender, nondistended, + bowel sounds
EXT: no cyanosis, clubbing--swollen right arm with bruising/ecchymosis
NEUROLOGIC: grossly intact
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
around 60)--back on outpt prednisone dose--restart IV abx (start zosyn) as CXR with developing pna (done for green sputum per family)--influenza positive, cont tamiflu-- Follow fever curve, etc. Note history of silent aspiration by VSE--COVID neg
ASCVD/Myocardial Injury--Initial EKG suspicious for STEMI (but NOT) and field laboratory operator activated- No significant stenosis/occlusion appreciated- Stent placed in 08/2024 (for L main dissection) is patent- Chronic LBBB with periods of complete heart block
per cards, no PPM per patient-- Continue DAPT--apprec cards- Continue to trend troponin - Myocardial injury likely on the basis of respiratory distress +/- CHF, etc.
Acute on Chronic HFpEF--BNP not significantly changed from prior--Elevated pressures noted during cath- Change IV Lasix to oral and follow I/Os, daily weights, etc---ECHO with EF 55-60% and mild mitral stenosis, no elevated pulm pressures
right arm swelling--US positive for superficial clot--deep veins patent--cont warm compresses--no need for anticoagulation
Essential Hypertension--BP improved
Hypothyroidism- Stable. Continue T4 supplementation.
Aortic Stenosis s/p TAVR--Descending Thoracic Aorta Stent
DVT Prophylaxis: Subcut Heparin
Code Status: DNR
d/c planning
Original Note:
Today's Communication/Plan
-
.
Assessment / Plan
Assessment / Plan
79F
1. Acute COPD Exacerbation likely 2/2 flu A (positive) with Acute on Chronic Hypoxemic and Hypercapnic Respiratory Failure
- Intubated in field laboratory operator, now extubated
- ABG on BiPAP with pCO2 100 (baseline around 60)
- IV steroids taper/discontinue quickly if able
- Patient intially given IB Abx; stopped; influenza positive, continue Oseltamivir
- Afebrile today. Follow fever curve.
- Note history of silent aspiration by VSE
- COVID neg
- Productive cough, green sputum reported. Follow up CXR/Sputum Culture
2. ASCVD/Myocardial Injury
- Initial EKG was suspicious for STEMI (but NOT) and field laboratory operator was activated --> showed no significant stenosis/occlusion --> Stent placed in 08/2024 (for L main dissection) is patent -->
- Chronic LBBB with periods of complete heart block per cards, discussing PPM but patient and family decline for the time being; benefits and risks discussed
- Continue dual antiplatelet therapy
- Appreciate cards
- Troponins downtrended - Myocardial injury likely on the basis of respiratory distress +/- CHF, etc.
3. Acute on Chronic HFpEF
- BNP not significantly changed from prior
- Elevated pressures noted during cath
- Patient transitioned from IV to oral Lasix
- Follow I/Os, daily weights, etc.
4. Essential Hypertension
- BP elevated likely due to volume overload
- IV diuresis as noted above
- Follow for changes in BP control.
5. Hypothyroidism
- Stable.
- Continue T4 supplementation.
6. Superficial Phlebitis
- US Doppler of RUE: thrombus within R antecubital vein, right proximal to mid cephalic vein; brachial veins appear patent
- Start K Pad Administration
DVT Prophylaxis: Subcut Heparin
Code Status: DNR
Anticipated Discharge: 24 - 48 hours
Subjective/Interval History
-
Date of Service: November 19, 2024
Patient seen and examined at bedside in the morning and denies any acute complaints. Specifically denied chest pain, SOB, palpitations. Noted the area of ecchymosis on her RUE but denied any tenderness or pain.
Revisited the patient in the late morning with daughter at bedside and another daughter on speakerphone. Patient's daughters note that she is coughing and bringing up green sputum. In addition, at this time, patient noted that her arm did in fact
hurt.
Objective Data
-
Labs:
Laboratory Results
11/19/24 11/19/24
04:50 10:42
WBC 5.7
Hgb 8.2 L
Hct 26.4 L
Plt Count 55 L D
HCO3 49.5 H*
Sodium 138
Potassium 3.7
Chloride 89 L
Carbon Dioxide 44 H
BUN 49 H
Creatinine 0.9
Glucose 102 H
Calcium 7.9 L
Vital Signs:
Vital Signs
Temp Pulse Resp BP Pulse Ox
98.8 F 99 17 117/42 94
11/19/24 11:33 11/19/24 11:33 11/19/24 11:33 11/19/24 11:33 11/19/24 11:33
I&O
11/18/24 11/19/24 11/20/24
06:59 06:59 06:59
Intake Total 280 / 280 840 / 840
Output Total 1060 / 1060 300 / 300
Balance -780 / -780 540 / 540
Review of Systems
-
History Source: Patient and Family
Respiratory: Reports Cough and Other (productive of green sputum)
Cardiac: Reports No Symptoms
Abdomen/GI: Reports No Symptoms
Neuro: Reports No Symptoms
Physical Exam
-
General: Comfortable and Other (frail)
HEENT: Normocephalic and Atraumatic
Respiratory: Clear to Auscultation and Non Labored Respirations
Cardiac: Regular Rhythm and Tachycardic
GI: Soft and Nontender
Musculoskeletal: No Edema
Skin: Warm
Neuro: Awake, Alert and Oriented
Psych: Calm
Data Reviewed
-
Ultrasound: Report Reviewed by me and Discussed with Patient
Labs: Labs Reviewed by me and Discussed with Patient
[2024-11-19] MEDS: DIAMOX 250 MG PO ×2 (13:47→20:34)
--- NOTE | 2024-11-19 18:34 | PTCARENOTE ---
Patient drowsy/lethargic throughout shift, POX 85% on 5L when patient sleeping, this RN in room to assess patient, patient states no complaints other than feeling tired. This RN communicated with respiratory therapy, BIPAP applied by respiratory
therapist, POX improved to 99%. RUE elevated on pillow, +2 edema, ecchymotic, palpable radial pulse, K pad applied per order.
[2024-11-19] MEDS: MUCINEX 1200 MG PO (20:34)
[2024-11-19] MEDS: ZOSYN 50 IV (20:35)
[2024-11-19 21:10] LABS: Glucose - Point of Care 116 mg/dl (70-99)
[2024-11-20] VITALS (10 sets, daily range): BP systolic 109–118; BP diastolic 40–45; PULSE 2–109; O2SAT 92; BMI 17.8
[2024-11-20] MEDS: HEPARIN 5000 UNITS SC (01:10)
[2024-11-20] MEDS: ZOSYN 50 IV ×4 (01:11→19:01)
[2024-11-20] MEDS: SYNTHROID 50 MCG PO (06:05)
[2024-11-20 07:42] LABS: Venous Blood Gas B.E. 13.2 mmol/L (-4 to +4); Venous Blood Gas HCO3 39.6 mmol/L (22-27); Venous Blood Gas pCO2 64 mmHg (35-48); Venous Blood Gas pO2 93 mmHg (30-50)
[2024-11-20 07:53] LABS: Hematocrit 22.7 % (37.0-47.0); Hemoglobin 7.2 g/dL (12.0-16.0); Mean Corp Hgb Conc. 31.7 g/dL (33.0-37.0); Mean Corpuscular Hgb 32.4 pg (27.0-31.0); Mean Corpuscular Volume 102.3 fL (81.0-99.0); Mean Platelet Volume 12.5 fL (7.4-10.4); Platelet Count 55 10^3/uL (130-400); Red Blood Cell Count 2.22 10^6/uL (4.20-5.40); Red Cell Dist. Width 13.8 % (11.5-14.5); White Blood Cell Count 7.5 10^3/uL (4.8-10.8)
[2024-11-20 08:16] LABS: ALT (SGPT) 23 U/L (0-35); AST (SGOT) 32 U/L (14-36); Albumin 2.8 g/dl (3.5-5.0); Alkaline Phosphatase 45 U/L (38-126); Blood Urea Nitrogen 38 mg/dl (7-17); Calcium 7.9 mg/dl (8.4-10.2); Carbon Dioxide 39 mmol/L (22-30); Chloride 94 mmol/L (98-107); Estimated Creatinine Clearance 24 ml/min; Glucose 86 mg/dl (70-99); Potassium 3.2 mmol/L (3.5-5.1); Sodium 137 mmol/L (135-145); Total Bilirubin 0.4 mg/dl (0.2-1.3); Total Protein 5.2 g/dl (6.3-8.2); eGFR 42.35
[2024-11-20 08:26] LABS: Procalcitonin 0.31 ng/ml (0.0-0.25)
[2024-11-20] MEDS: SYMBICORT 160/4.5 MCG INHALER 2 PUFF INH ×2 (08:40→19:21)
[2024-11-20] MEDS: DUONEB 3 ML INH ×4 (08:40→19:21)
[2024-11-20 08:51] LABS: Glucose - Point of Care 93 mg/dl (70-99)
[2024-11-20] MEDS: TAMIFLU 30 MG PO ×2 (08:56→19:01)
[2024-11-20] MEDS: LASIX 40 MG PO (08:56)
[2024-11-20] MEDS: MUCINEX 1200 MG PO ×2 (08:57→19:01)
[2024-11-20] MEDS: LIPITOR 40 MG PO (08:57)
[2024-11-20] MEDS: ASPIR LOW (ENTERIC COATED) 81 MG PO (08:57)
[2024-11-20] MEDS: THERAGRAN 1 TABLET PO (08:57)
[2024-11-20] MEDS: VISBIOME 1 CAP PO (08:57)
[2024-11-20] MEDS: DELTASONE 10 MG PO (08:57)
[2024-11-20] MEDS: PLAVIX 75 MG PO (08:57)
[2024-11-20] MEDS: LEXAPRO 20 MG PO (08:58)
--- NOTE | 2024-11-20 09:20 | W.PN.PUL3 ---
Addendum entered and electronically signed by Rahul Schulz MD 11/21/24 01:15:
Patient was seen and evaluated on 11/20/2024
Original Note:
Today's Communication / Plan
-
Diet as per [facility]
Continue Tamiflu
DAPT as per cardiology with eventual changing Plavix to Eliquis and continue ASA
Continue ABx per primary team; if she remains afebrile with negative SCx (collected 11/19) then would narrow ABx and would give short course overall (5 days)
Trend procal to assure there is source control
Continue prednisone taper; goal BG >100 and <180
Hold diurese given RYAN --> trend sCr, and monitor I/O and trend UOP
PT/OT
Pulmonary service will continue to briefly follow
Assessment
-
79yo F with PMH advanced COPD on home O2 and trilogy vent at night, ASCVD, CAD s/p stent 08/2024, HFpEF who presented to ED 11/15/24 for shortness of breath. History obtained from chart review as patient remains intubated at this time. Prior to
admission, had cough for 3-4 days and became progressively lethargic and dyspneic. In the ED, she reported chest tightness, had an elevated troponin, and EKG changes concerning for STEMI. She was taken to trestle mainternance laborer urgently, and cath was negative for
significant stenosis. She was started on BiPAP due to lethargy and after ABG showed hypercapnic respiratory failure, she was intubated for improved ventilation. Flu positive. Customer Quality Specialist consulted for ventilator/critical care management.
Impression:
Acute on chronic hypercapnic/hypoxemic respiratory failure
Intubated 11/15
Extubated 11/16
Influenza-A positive
Elevated troponin- likely demand ischemia from acute illness, hypoxemia; cardiac cath negative 11/15/24
Elevated pressures during cath, suspect volume overload
Episodic complete heart block per telemetry
Physical deconditioning
Conditions prior to admission:
Advanced COPD on home O2 and trilogy vent at night
ASCVD, CAD, PAD
HFpEF
Chronic LBBB
HTN
Hypothyroidism
Aortic stenosis s/p TAVR
Anxiety
Plan/recommendations
At this time, patient has improved
Extubated 11/16
Maintain on noninvasive ventilation/BiPAP with sleep
Blood gas from yesterday morning showed respiratory alkalosis with pH 7.57, pCO2 54 --> pH now 7.4 s/p diamox; continue to trend blood gas to assure pH and pCO2 remain stable
Lower extremity Dopplers negative for DVT from 11/16/2024; she does have a RUE superficial thrombus seen on RUE duplex from 11/19/2024
Continue tamiflu and supportive measures
Continue Mucinex and continue with DuoNebs QID as patient was endorsing a worsening cough with phlegm production on 11/19/2024
Received Zosyn on 11/16/2024, which was discontinued given low suspicion for bacterial infection
CXR from 11/19/2024 shows possible opacification in the right lower lobe - ABx restarted today with Zosyn by primary team
Procal 0.31 (11/20/2024)
Continue prednisone with taper
Follow up on ECG- question of complete heart block --> last EKG on 11/17/2024 showed sinus tachycardia with LBBB
Cardiology following - no indication for PPM at this time as per EP
Continue plavix, aspirin --> cardiology plans to eventually switch plavix to Eliquis
Troponin peaked at 0.468 on 11/16/2024 � no longer need to continue trending at this time as it was elevated on admission, then trended up likely secondary to cardiac cath
Hold lasix given RYAN today --> was previously on 40mg PO daily
Echocardiogram normal biventricular function, well-seated AVR, with low peak/mean gradients; there was severe mitral annular calcification albeit with mild mitral stenosis
Monitor on telemetry
Continue diet as per [facility] s/p VSE performed on 11/19, which showed silent aspiration with thin liquids and moderately thick liquids
Monitor electrolytes, supplement as needed to keep K>4, Mg>2
Monitor BG with goal >100 and <180ng/dL
Code status: DNR
VTE ppx: subcutaneous heparin q8h, SCDs
Pulmonary service will continue to briefly follow along
Total time spent today was 36 minutes for this encounter. Time includes reviewing laboratory test/imaging results, reviewing pertinent medical records, obtaining and reviewing medical history, performing an appropriate exam, ordering medications,
tests and procedures. Time also includes documentation of this encounter, coordinating patient care and communicating with other healthcare professionals. Total time does not include separately billed tests performed on this date of service.
Subjective Data
-
Date of Service:
Date of Service: November 20, 2024
Chief Complaint: Pulmonary Follow Up
Subjective:
Pt seen this AM on 11/20/2024. Late note entry. She is resting in bed in NAD. No acute events reported from overnight. Wore BiPAP 12/5cmH2O bled with 3L/min overnight. On 4L/min saturating 97%. She denies chest pain, MCHUGH, abd pain, N/V/f/c.
Review of Systems
General: Other (negative unless mentioned above)
Objective Data
Data Reviewed
Vital Signs / I&O / Oxygen:
Vital Signs
Temp Pulse Resp BP Pulse Ox
98.1 F 78 16 114/43 98
11/20/24 08:31 11/20/24 08:56 11/20/24 08:44 11/20/24 08:56 11/20/24 08:31
Intake and Output
11/19/24 11/20/24 11/21/24
06:59 06:59 06:59
Intake Total 840 / 840 300 / 300
Output Total 300 / 300
Balance 540 / 540 300 / 300
SaO2 [ASV] 96
SaO2 [A/C] 99
SaO2 98
Nasal Cannula flow liters per 5
minute
Physical Exam
General: Respiratory Distress (negative), Comfortable, Chills (negative) and Sweats (negative)
HEENT: Normocephalic and Anicteric
Cardiovascular: S1-S2, Rub (negative) and Peripheral Edema (negative)
Respiratory: Wheeze (negative), Crackles (bilateral), Rhonchi (b/l), Non-Labored Respirations and Other (Diminished breath sounds bilaterally)
GI: Soft, Non Distended, Non Tender and Normal Bowel Sounds
Neurology: Awake, Alert and Tremors (negative)
Skin: Warm, Dry and Bruising (Scattered)
Labs/Micro/Reports
Lab Data
11/20/24 07:18
11/20/24 07:18
[2024-11-20] MEDS: HEPARIN SC (09:26)
--- NOTE | 2024-11-20 09:55 | PN.CDI ---
CDI
- -
CDI:
Physician Documentation Request
Admit Date: 11/15/24 21:28
Dear Doctor Vernon,
Please review the following and provide your response in the progress notes.
Clinical Indicators:
Height: 5'
Weight: 91 lbs
BMI: 17.8
11/18 Hospitalist PN: 'frail elderly female'
If possible, please provide an associated diagnosis related to the abnormal BMI, such as:
Underweight
Cachectic
BMI is not significant
Other
BMI < or = to 19.9
Underweight
Weight Loss
Cachectic
Anorexia
Use of terms such as suspected, likely, concern for, or probable (associated with a specific diagnosis that is being evaluated, monitored, or treated as if it exists) are acceptable and can be coded in the inpatient setting, when documented at the
time of discharge.
Thank you,
Cherry Jones RN, BSN
CDI Specialist
Available via [facility] text
Please use your independent medical judgment in providing your response.
[2024-11-20 11:38] LABS: Glucose - Point of Care 120 mg/dl (70-99)
--- NOTE | 2024-11-20 15:06 | W.PN.HOSP.TC ---
Addendum entered and electronically signed by Krystal Dupree MD 11/20/24 18:40:
I saw and evaluated the patient independently. I reviewed the resident�s note and agree with findings and plan as documented by Dr. Junior.
GENERAL: elderly frail female in no apparent distress
HEENT: NC/AT--O2 NC in place (wears at home)
HEART: regular rate and rhythm, +S1, +S2
LUNGS : clear to auscultation bilaterally, decreased breath sounds
ABDOM: soft, nontender, nondistended, + bowel sounds
EXT: no cyanosis, clubbing--swollen right arm with bruising/ecchymosis
NEUROLOGIC: grossly intact
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
around 60)--back on outpt prednisone dose--restarted IV abx (zosyn) as CXR with developing pna (done for green sputum per family)--influenza positive, finish tamiflu-- Follow fever curve, etc. Note history of silent aspiration by VSE--COVID neg
ASCVD/Myocardial Injury--Initial EKG suspicious for STEMI (but NOT) and quality lab technician activated- No significant stenosis/occlusion appreciated- Stent placed in 08/2024 (for L main dissection) is patent- Chronic LBBB with periods of complete heart block
per cards, no PPM per patient-- Continue DAPT--apprec cards- Continue to trend troponin - Myocardial injury likely on the basis of respiratory distress +/- CHF, etc.
Acute on Chronic HFpEF--BNP not significantly changed from prior--Elevated pressures noted during cath- Change IV Lasix to oral and follow I/Os, daily weights, etc---ECHO with EF 55-60% and mild mitral stenosis, no elevated pulm pressures
RYAN--creat up to 1.3--hold lasix and follow
right arm swelling--US positive for superficial clot--deep veins patent--cont warm compresses--no need for anticoagulation
thrombocytopenia--was on SQ heparin--stop and send HIT panel
Essential Hypertension--BP improved
Hypothyroidism- Stable. Continue T4 supplementation.
Aortic Stenosis s/p TAVR--Descending Thoracic Aorta Stent
underweight BMI
DVT Prophylaxis: Subcut Heparin
Code Status: DNR
hopeful d/c to SNF 11/22/24
Original Note:
Today's Communication/Plan
-
.
Assessment / Plan
Assessment / Plan
79F
1. Acute COPD Exacerbation likely 2/2 flu A (positive) with Acute on Chronic Hypoxemic and Hypercapnic Respiratory Failure
- Intubated in quality lab technician, now extubated
- ABG on BiPAP with pCO2 100 (baseline around 60)
- IV steroids taper/discontinue quickly if able
- Patient intially given IB Abx; stopped; influenza positive, continue Oseltamivir for one more day.
- Afebrile today. Follow fever curve.
- Note history of silent aspiration by VSE
- COVID neg
- Productive cough, green sputum reported. Follow up CXR/Sputum Culture
- Sputum culture not sent yesterday, new specimin collected today
- Patient started on Zosyn yesterday; CXR shows possible pneumonia, but could also be summation of shadows. Abx started due to sputum characteristics and history of COPD. Will narrow abx based on culture, and keep to short course otherwise.
2. ASCVD/Myocardial Injury
- Initial EKG was suspicious for STEMI (but NOT) and quality lab technician was activated --> showed no significant stenosis/occlusion --> Stent placed in 08/2024 (for L main dissection) is patent -->
- Chronic LBBB with periods of complete heart block per cards, discussing PPM but patient and family decline for the time being; benefits and risks discussed
- Continue dual antiplatelet therapy
- Appreciate cards
- Troponins downtrended - Myocardial injury likely on the basis of respiratory distress +/- CHF, etc.
3. Acute on Chronic HFpEF
- BNP not significantly changed from prior
- Elevated pressures noted during cath
- Patient transitioned from IV to oral Lasix
- Follow I/Os, daily weights, etc.
- Elevated Creatinine today - 1.3; Lasix held; Repeat CMP in AM.
4. Essential Hypertension
- BP elevated likely due to volume overload
- IV diuresis as noted above
- Follow for changes in BP control.
5. Hypothyroidism
- Stable.
- Continue T4 supplementation.
6. Superficial Phlebitis
- US Doppler of RUE: thrombus within R antecubital vein, right proximal to mid cephalic vein; brachial veins appear patent
- Start K Pad Administration
7. Thrombocytopenia
- Heparin Held
- Follow up HIT Panel
DVT Prophylaxis: Subcut Heparin
Code Status: DNR
Anticipated Discharge: 24 - 48 hours
Subjective/Interval History
-
Date of Service: November 20, 2024
Patient seen and examined while sitting up in bed with 2 daughters at the bedside. Patient denies any acute complaints, but does not note improvement in her productive cough. Patients daughters note that their mother seems fatigued.
Objective Data
-
Labs:
Laboratory Results
11/20/24
07:18
WBC 7.5
Hgb 7.2 L
Hct 22.7 L
Plt Count 55 L
Sodium 137
Potassium 3.2 L
Chloride 94 L
Carbon Dioxide 39 H
BUN 38 H
Creatinine 1.3 H
Glucose 86
Calcium 7.9 L
Total Bilirubin 0.4
AST 32
ALT 23
Alkaline Phosphatase 45
Vital Signs:
Vital Signs
Temp Pulse Resp BP Pulse Ox
97.8 F 68 16 118/43 97
11/20/24 11:52 11/20/24 11:52 11/20/24 11:52 11/20/24 11:52 11/20/24 11:52
I&O
11/19/24 11/20/24 11/21/24
06:59 06:59 06:59
Intake Total 840 / 840 300 / 300
Output Total 300 / 300
Balance 540 / 540 300 / 300
Review of Systems
-
History Source: Patient and Family
Constitutional: Reports No Symptoms
Respiratory: Reports Cough and Other (productive of sputum)
Cardiac: Reports No Symptoms
Abdomen/GI: Reports No Symptoms
Musculoskeletal: Reports Other (ecchymosis RUE)
Neuro: Reports No Symptoms
Physical Exam
-
General: Conversant and Other (frail)
HEENT: Normocephalic, Atraumatic and Oxygen
Respiratory: Clear to Auscultation and Decreased Breath Sounds
Cardiac: Regular Rhythm and S1/S2
GI: Soft, Nontender and Nondistended
Musculoskeletal: Other (ecchymosis of the right upper extremity, unchanged from yesterday, nontender)
Skin: Warm
Neuro: Awake
Psych: Calm
Data Reviewed
-
Labs: Labs Reviewed by me and Discussed with Patient
--- NOTE | 2024-11-20 17:16 | CM ---
Patient seen at bedside with physician. Patient family was updated about a bed tentatively at [facility] pending bed availability, physician aware. CM will need to call to [facility] and confirm bed availability and call insurance for authorization. CM will
continue to follow for discharge planning needs.
Plan; SNF; pending bed availability at [facility], will need auth
[2024-11-21] VITALS (16 sets, daily range): BP systolic 102–128; BP diastolic 37–51; PULSE 2–77; BMI 16.6
[2024-11-21] MEDS: ZOSYN 50 IV ×4 (02:22→21:21)
[2024-11-21] MEDS: SYNTHROID 50 MCG PO (04:56)
--- NOTE | 2024-11-21 06:25 | PTCARENOTE ---
Observed bu this nurse overnight that pt.'s hgb has trended down from 12.0 (pn 11/15) to 7.2 during the course of this admission. Provider notified. No new orders at this time. Pt. resting comfortably. Plan of care ongoing.
[2024-11-21 07:26] LABS: Venous Blood Gas B.E. 11.6 mmol/L (-4 to +4); Venous Blood Gas HCO3 36.8 mmol/L (22-27); Venous Blood Gas pCO2 53 mmHg (35-48); Venous Blood Gas pH 7.45 (7.32-7.43); Venous Blood Gas pO2 163 mmHg (30-50)
[2024-11-21 07:32] LABS: Hematocrit 20.2 % (37.0-47.0); Hemoglobin 6.7 g/dL (12.0-16.0); Mean Corp Hgb Conc. 33.2 g/dL (33.0-37.0); Mean Corpuscular Hgb 32.8 pg (27.0-31.0); Mean Platelet Volume 11.9 fL (7.4-10.4); Platelet Count 73 10^3/uL (130-400); Red Blood Cell Count 2.04 10^6/uL (4.20-5.40); Red Cell Dist. Width 13.8 % (11.5-14.5); White Blood Cell Count 6.1 10^3/uL (4.8-10.8)
[2024-11-21 07:58] LABS: Blood Urea Nitrogen 38 mg/dl (7-17); Carbon Dioxide 37 mmol/L (22-30); Chloride 97 mmol/L (98-107); Estimated Creatinine Clearance 22 ml/min; Glucose 82 mg/dl (70-99); Potassium 3.2 mmol/L (3.5-5.1); Sodium 136 mmol/L (135-145); eGFR 42.35
[2024-11-21] MEDS: SYMBICORT 160/4.5 MCG INHALER 2 PUFF INH ×2 (08:02→19:20)
[2024-11-21] MEDS: DUONEB 3 ML INH ×4 (08:03→19:20)
[2024-11-21 08:40] LABS: Procalcitonin 0.41 ng/ml (0.0-0.25)
--- NOTE | 2024-11-21 10:31 | PTCARENOTE ---
PO meds given late as pt is lethargic, and I wanted to make sure she would tolerate some breakfast.
[2024-11-21] MEDS: LIPITOR 40 MG PO (10:32)
[2024-11-21] MEDS: DELTASONE 10 MG PO (10:32)
[2024-11-21] MEDS: ASPIR LOW (ENTERIC COATED) 81 MG PO (10:32)
[2024-11-21] MEDS: TAMIFLU 30 MG PO ×2 (10:32→21:21)
[2024-11-21] MEDS: MYCOSTATIN ORAL SUSPENSION 5 ML PO ×4 (10:32→21:21)
[2024-11-21] MEDS: LEXAPRO 20 MG PO (10:33)
[2024-11-21] MEDS: VISBIOME 1 CAP PO (10:33)
[2024-11-21] MEDS: THERAGRAN 1 TABLET PO (10:33)
[2024-11-21] MEDS: PLAVIX 75 MG PO (10:33)
[2024-11-21] MEDS: MUCINEX 1200 MG PO ×2 (10:34→21:21)
[2024-11-21 10:58] LABS: INR 0.88; PT 12.4 Sec (11.4-14.6)
[2024-11-21 10:59] LABS: APTT 28.1 Sec (23.4-35.0)
--- NOTE | 2024-11-21 13:01 | W.PN.HOSP.TC ---
Addendum entered and electronically signed by Krystal Dupree MD 11/21/24 15:06:
I saw and evaluated the patient independently. I reviewed the resident�s note and agree with findings and plan as documented by Dr. Junior.
GENERAL: elderly frail female in no apparent distress
HEENT: NC/AT--O2 NC in place (wears at home)
HEART: regular rate and rhythm, +S1, +S2
LUNGS : clear to auscultation bilaterally, decreased breath sounds
ABDOM: soft, nontender, nondistended, + bowel sounds
EXT: no cyanosis, clubbing--swollen right arm with bruising/ecchymosis--soft and supple
NEUROLOGIC: grossly intact
COPD with Acute Exacerbation likely from influenza A (positive) with Acute on Chronic Hypoxemic and Hypercapnic Respiratory Failure due to O2 and prednisone dependent COPD--intubated in circus laborer, now extubated-- ABG on BiPAP with pCO2 100 (baseline
around 60)--back on outpt prednisone dose--restarted IV abx (zosyn) as CXR with developing pna (done for green sputum per family)-- finish tamiflu-- Follow fever curve, etc. Note history of silent aspiration by VSE--COVID neg
ASCVD/Myocardial Injury--Initial EKG suspicious for STEMI (but NOT) and circus laborer activated- No significant stenosis/occlusion appreciated- Stent placed in 08/2024 (for L main dissection) is patent- Chronic LBBB with periods of complete heart block
per cards, no PPM per patient-- Continue DAPT--apprec cards- Continue to trend troponin - Myocardial injury likely on the basis of respiratory distress +/- CHF, etc.
Acute on Chronic HFpEF--BNP not significantly changed from prior--Elevated pressures noted during cath- Change IV Lasix to oral and follow I/Os, daily weights, etc---ECHO with EF 55-60% and mild mitral stenosis, no elevated pulm pressures
anemia--acute from unknown reason? (HGB on 11/15/24 was 12.0)--? blood draws, ? bled into arm with ecchymosis (arm soft does not appear tight)--Dr. Junior and myself spoke with daughter by phone to obtain consent (pt did sign and was agreeable to
blood transfusion) but did not want to pursue further workup (i. e. GI consult, EGD, colon, etc)--will transfuse 2 units pRBC with lasix in between
RYAN--creat up to 1.3-- follow
right arm swelling--US positive for superficial clot--deep veins patent--cont warm compresses--no need for anticoagulation
thrombocytopenia--was on SQ heparin--stop and send HIT panel (pending)
Essential Hypertension--BP improved
Hypothyroidism- Stable. Continue T4 supplementation.
Aortic Stenosis s/p TAVR--Descending Thoracic Aorta Stent
underweight BMI
DVT Prophylaxis: Subcut Heparin
Code Status: DNR
hopeful d/c to SNF 11/22/24
Original Note:
Today's Communication/Plan
-
.
Assessment / Plan
Assessment / Plan
79F
1. Acute COPD Exacerbation likely 2/2 flu A (positive) with Acute on Chronic Hypoxemic and Hypercapnic Respiratory Failure
- Intubated in circus laborer, now extubated
- ABG on BiPAP with pCO2 100 (baseline around 60)
- IV steroids taper/discontinue quickly if able
- Patient intially given IB Abx; stopped; influenza positive, continue Oseltamivir for one more day.
- Afebrile today. Follow fever curve.
- Note history of silent aspiration by VSE
- COVID neg
- Productive cough, green sputum reported. Follow up CXR/Sputum Culture
- Sputum culture: Pseudomonas [place]
- Patient started on Zosyn 2 days ago;
- CXR shows possible pneumonia, but could also be summation of shadows.
- Continues to be afebrile with normocytosis. However procalcitonin trending up.
- Will continue Zosyn for now.
2. ASCVD/Myocardial Injury
- Initial EKG was suspicious for STEMI (but NOT) and circus laborer was activated --> showed no significant stenosis/occlusion --> Stent placed in 08/2024 (for L main dissection) is patent -->
- Chronic LBBB with periods of complete heart block per cards, discussing PPM but patient and family decline for the time being; benefits and risks discussed
- Continue dual antiplatelet therapy
- Appreciate cards
- Troponins downtrended - Myocardial injury likely on the basis of respiratory distress +/- CHF, etc.
3. Acute on Chronic HFpEF
- Elevated pressures noted during cath
- Patient transitioned from IV to oral Lasix
- Follow I/Os, daily weights, etc.
- Elevated Creatinine yesterday and today - 1.3; Lasix held; Repeat CMP in AM.
- Note: one dose of Lasix to be given today between units of pRBCs (see below)
4. Essential Hypertension
- BP elevated likely due to volume overload
- IV diuresis as noted above
- Follow for changes in BP control.
5. Hypothyroidism
- Stable.
- Continue T4 supplementation.
6. Superficial Phlebitis
- US Doppler of RUE: thrombus within R antecubital vein, right proximal to mid cephalic vein; brachial veins appear patent
- Start K Pad Administration
7. Thrombocytopenia
- Heparin Held
- Follow up HIT Panel
8. Anemia
- Hb 6.7 this morning.
- No signs of overt bleeding.
- PT/PTT/INR WNL
- Stool Heme Pending
- Consent Obtained; Type/Cross; 2 Units of pRBCs today.
Patient to be given 1 dose of Lasix in between units to avoid volume overload.
DVT Prophylaxis: Subcut Heparin
Code Status: DNR
Anticipated Discharge: 24 - 48 hours
Subjective/Interval History
-
Date of Service: November 21, 2024
Patient seen and examined while resting in bed. The patient denies any acute complaints this morning and states the she is no worse or no better, however appears more fatigued. Per the patient's daughter, with whom we spoke on the phone, the patient
has seemed more fatigued in the interim.
Objective Data
-
Labs:
Laboratory Results
11/21/24 11/21/24
07:15 10:28
WBC 6.1
Hgb 6.7 L*
Hct 20.2 L*
Plt Count 73 L D
PT 12.4
INR 0.88
APTT 28.1
Sodium 136
Potassium 3.2 L
Chloride 97 L
Carbon Dioxide 37 H
BUN 38 H
Creatinine 1.3 H
Glucose 82
Calcium 8.0 L
Vital Signs:
Vital Signs
Temp Pulse Resp BP Pulse Ox
98.9 F 100 18 117/40 93
11/21/24 11:35 11/21/24 11:35 11/21/24 11:35 11/21/24 11:35 11/21/24 11:35
I&O
11/20/24 11/21/24 11/22/24
06:59 06:59 06:59
Intake Total 300 / 300 760 / 760
Balance 300 / 300 760 / 760
Review of Systems
-
History Source: Patient and Family
Constitutional: Reports Other (Fatigue)
Respiratory: Reports No Symptoms
Cardiac: Reports No Symptoms
Physical Exam
-
General: No Apparent Distress and Other (elderly, frail, fatigued but conversant)
HEENT: Normocephalic and Atraumatic
Respiratory: Clear to Auscultation and Decreased Breath Sounds
Cardiac: Regular Rhythm and S1/S2
GI: Soft and Nontender
Musculoskeletal: No Clubbing, No Cyanosis and Other (trace edema of the lower extremities bilaterally; swollen right arm with bruising/ecchymosis)
Skin: Warm
Neuro: Awake and Alert
Psych: Calm
Data Reviewed
-
Labs: Labs Reviewed by me, Discussed with Patient and Discussed with Family
[2024-11-21] MEDS: KCL 40 MEQ PO (14:08)
[2024-11-21 16:11] LABS: Iron 86 ug/dl (37-170)
[2024-11-21 16:18] LABS: Reticulocyte Count 2.3 % (0.4-2.8)
[2024-11-21 16:20] LABS: Percent Saturation 39 % (20-50); Total Iron Binding Capacity 218 ug/dl (265-497)
--- NOTE | 2024-11-21 16:56 | W.PN.PUL3 ---
Today's Communication / Plan
-
Continue nocturnal BiPAP
Continue nebulizer therapy
Continue inhalers
Antibiotics per primary team
To complete Tamiflu tomorrow
Oxygen for mentation continues
Back on baseline prednisone
Will follow
Assessment
-
79yo F with PMH advanced COPD on home O2 and trilogy vent at night, ASCVD, CAD s/p stent 08/2024, HFpEF who presented to ED 11/15/24 for shortness of breath. History obtained from chart review as patient remains intubated at this time. Prior to
admission, had cough for 3-4 days and became progressively lethargic and dyspneic. In the ED, she reported chest tightness, had an elevated troponin, and EKG changes concerning for STEMI. She was taken to test lab technician urgently, and cath was negative for
significant stenosis. She was started on BiPAP due to lethargy and after ABG showed hypercapnic respiratory failure, she was intubated for improved ventilation. Flu positive. Pelletizer Tender consulted for ventilator/critical care management.
Now pulmonary following for respiratory failure/history of COPD.
Impression:
Acute on chronic hypercapnic/hypoxemic respiratory failure
Intubated 11/15
Extubated 11/16
Influenza-A positive
Elevated troponin- likely demand ischemia from acute illness, hypoxemia; cardiac cath negative 11/15/24
Elevated pressures during cath, suspect volume overload
Episodic complete heart block per telemetry
Physical deconditioning
Conditions prior to admission:
Advanced COPD on home O2 and trilogy vent at night
ASCVD, CAD, PAD
HFpEF
Chronic LBBB
HTN
Hypothyroidism
Aortic stenosis s/p TAVR
Anxiety
Plan/recommendations
Overall clinically improved since admission.
Extubated 11/16
Maintain on noninvasive ventilation/BiPAP with sleep
Blood gas 11/19/2024 respiratory alkalosis with pH 7.57, pCO2 54 --> most recent VBG 7.45/53/163- 11/21/2024
-
Lower extremity Dopplers negative for DVT from 11/16/2024; she does have a RUE superficial thrombus seen on RUE duplex from 11/19/2024
-
Not bronchospastic on exam
Continue Mucinex and continue with DuoNebs QID as patient was endorsing a worsening cough with phlegm production on 11/19/2024
Symbicort/Spiriva continues-outpatient regimen.
-
Continue tamiflu for total of 5 days. Last dose tomorrow.
-
Remains on Zosyn: No leukocytosis, afebrile.
CXR from 11/19/2024 shows possible opacification in the right lower lobe - ABx restarted today with Zosyn by primary team
Will complete 5 days of antibiotics. Defer to primary team
Procal 0.31 (11/20/2024)
Continue prednisone currently at 10 mg.(Baseline dose)
Follow up on ECG- question of complete heart block --> last EKG on 11/17/2024 showed sinus tachycardia with LBBB
Cardiology following - no indication for PPM at this time as per EP
Antiplatelets, anticoagulation per cardiology.
Troponin peaked at 0.468 on 11/16/2024 � no longer need to continue trending at this time as it was elevated on admission, then trended up likely secondary to cardiac cath
Diuretics per cardiology and primary team.
Echocardiogram normal biventricular function, well-seated AVR, with low peak/mean gradients; there was severe mitral annular calcification albeit with mild mitral stenosis
Monitor on telemetry
Continue diet as per REPAIR ARMATURE WINDER s/p VSE performed on 11/19, which showed silent aspiration with thin liquids and moderately thick liquids
Monitor electrolytes, supplement as needed to keep K>4, Mg>2
Monitor BG with goal >100 and <180ng/dL
Code status: DNR
VTE ppx: subcutaneous heparin q8h, SCDs
Pulmonary service will continue to briefly follow along
Total time spent today was 36 minutes for this encounter. Time includes reviewing laboratory test/imaging results, reviewing pertinent medical records, obtaining and reviewing medical history, performing an appropriate exam, ordering medications,
tests and procedures. Time also includes documentation of this encounter, coordinating patient care and communicating with other healthcare professionals. Total time does not include separately billed tests performed on this date of service.
Subjective Data
-
Date of Service:
Date of Service: November 21, 2024
Chief Complaint: Pulmonary Follow Up
Subjective:
No new pulmonary complaints
Review of Systems
General: Fever (n)
Objective Data
Data Reviewed
Vital Signs / I&O / Oxygen:
Vital Signs
Temp Pulse Resp BP Pulse Ox
98.5 F 86 18 108/50 94
11/21/24 15:26 11/21/24 15:42 11/21/24 15:42 11/21/24 15:26 11/21/24 15:00
Intake and Output
11/20/24 11/21/24 11/22/24
06:59 06:59 06:59
Intake Total 300 / 300 760 / 760 0 / 0
Balance 300 / 300 760 / 760 0 / 0
SaO2 [ASV] 96
SaO2 [A/C] 99
SaO2 94
Nasal Cannula flow liters per 4
minute
Physical Exam
General: Respiratory Distress (negative), Comfortable, Chills (negative) and Sweats (negative)
HEENT: Normocephalic and Anicteric
Cardiovascular: S1-S2, Rub (negative) and Peripheral Edema (negative)
Respiratory: Wheeze (negative), Crackles (bilateral), Rhonchi (b/l), Non-Labored Respirations and Other (Diminished breath sounds bilaterally)
GI: Soft, Non Distended, Non Tender and Normal Bowel Sounds
Neurology: Awake, Alert and Tremors (negative)
Skin: Warm, Dry and Bruising (Scattered)
Labs/Micro/Reports
Lab Data
11/21/24 07:15
11/21/24 07:15
Laboratory Results
11/21/24
10:28
PT 12.4
INR 0.88
APTT 28.1
Microbiology
11/19/24 11:26 Sputum Respiratory Culture - Preliminary
Pseudomonas aeruginosa
11/19/24 11:26 Sputum Gram Stain - Final
[2024-11-21] MEDS: LASIX 40 MG PO (17:24)
--- NOTE | 2024-11-21 17:58 | PTCARENOTE ---
Pt tolerated first unit of PRBCs; lasix given between units, second unit transfusing alma rosa, VSS, pt states no adverse feeling.
[2024-11-22] VITALS (7 sets, daily range): BP systolic 117–139; BP diastolic 48–54; PULSE 2–108; O2SAT 95; BMI 17.6
--- NOTE | 2024-11-22 02:33 | PTCARENOTE ---
Patient tolerated 2nd unit of blood transfusion w/o difficulty, VS remain WNL, she had no complaints during last infusion.
[2024-11-22] MEDS: ZOSYN 50 IV ×4 (03:04→20:38)
[2024-11-22] MEDS: SYNTHROID 50 MCG PO (06:10)
[2024-11-22 07:21] LABS: Blood Urea Nitrogen 29 mg/dl (7-17); Carbon Dioxide 34 mmol/L (22-30); Chloride 99 mmol/L (98-107); Estimated Creatinine Clearance 25 ml/min; Glucose 81 mg/dl (70-99); Potassium 3.6 mmol/L (3.5-5.1); Sodium 137 mmol/L (135-145); eGFR 46.62
[2024-11-22 07:23] LABS: Procalcitonin 0.22 ng/ml (0.0-0.25)
[2024-11-22 07:26] LABS: Hematocrit 30.8 % (37.0-47.0); Hemoglobin 10.4 g/dL (12.0-16.0); Mean Corp Hgb Conc. 33.8 g/dL (33.0-37.0); Mean Corpuscular Hgb 30.7 pg (27.0-31.0); Mean Corpuscular Volume 90.9 fL (81.0-99.0); Mean Platelet Volume 10.6 fL (7.4-10.4); Platelet Count 104 10^3/uL (130-400); Red Blood Cell Count 3.39 10^6/uL (4.20-5.40); Red Cell Dist. Width 17.5 % (11.5-14.5)
--- NOTE | 2024-11-22 07:53 | W.PN.HOSP.TC ---
Addendum entered and electronically signed by Krystal Dupree MD 11/22/24 18:26:
I saw and evaluated the patient independently. I reviewed the resident�s note and agree with findings and plan as documented by Dr. Junior.
GENERAL: elderly frail female in no apparent distress
HEENT: NC/AT--O2 NC in place (wears at home)
HEART: regular rate and rhythm, +S1, +S2
LUNGS : coarse loose sounding breaths
ABDOM: soft, nontender, nondistended, + bowel sounds
EXT: no cyanosis, clubbing--swollen right arm with bruising/ecchymosis--soft and supple
NEUROLOGIC: grossly intact
Was getting ready to discharge the patient to [facility] as previously planned, however, daughters wanted to talk to us. They would like her to be comfortable. They are interested in hospice. They do not feel that she could rehab and do not wish
for her to suffer and be uncomfortable. She is DNR and did not want to be intubated in the first place. I am in full agreement that the patient has end-stage COPD and that hospice is appropriate. We have placed consult. Discharge to [facility] has
been canceled. Patient has been transitioned to comfort measures with as needed morphine as needed.
COPD with Acute Exacerbation likely from influenza A (positive) with Acute on Chronic Hypoxemic and Hypercapnic Respiratory Failure due to O2 and prednisone dependent COPD--intubated in track laborer, now extubated-- ABG on BiPAP with pCO2 100 (baseline
around 60)--back on outpt prednisone dose--restarted IV abx (zosyn) as CXR with developing pna (done for green sputum per family), sputum culture with pseudomonas-- finish tamiflu-- Follow fever curve, etc. Note history of silent aspiration by
VSE--COVID neg
ASCVD/Myocardial Injury--Initial EKG suspicious for STEMI (but NOT) and track laborer activated- No significant stenosis/occlusion appreciated- Stent placed in 08/2024 (for L main dissection) is patent- Chronic LBBB with periods of complete heart block
per cards, no PPM per patient-- Continue DAPT--apprec cards- Continue to trend troponin - Myocardial injury likely on the basis of respiratory distress +/- CHF, etc.
Acute on Chronic HFpEF--BNP not significantly changed from prior--Elevated pressures noted during cath- Change IV Lasix to oral and follow I/Os, daily weights, etc---ECHO with EF 55-60% and mild mitral stenosis, no elevated pulm pressures
anemia--acute from unknown reason? (HGB on 11/15/24 was 12.0)--? blood draws, ? bled into arm with ecchymosis (arm soft does not appear tight)--Dr. Junior and myself spoke with daughter by phone to obtain consent (pt did sign and was agreeable to
blood transfusion) but did not want to pursue further workup (i. e. GI consult, EGD, colon, etc)--will transfuse 2 units pRBC with lasix in between--HGB improved to 10.4
RYAN--creat up to 1.2-- follow--baseline 0.9
right arm swelling--US positive for superficial clot--deep veins patent--cont warm compresses--no need for anticoagulation
thrombocytopenia--was on SQ heparin--stop and send HIT panel (pending)
Essential Hypertension--BP improved
Hypothyroidism- Stable. Continue T4 supplementation.
Aortic Stenosis s/p TAVR--Descending Thoracic Aorta Stent
underweight BMI
DVT Prophylaxis: Subcut Heparin
Code Status: DNR
Original Note:
Today's Communication/Plan
-
.
Assessment / Plan
Assessment / Plan
79F
1. Acute COPD Exacerbation likely 2/2 flu A (positive) with Acute on Chronic Hypoxemic and Hypercapnic Respiratory Failure
- Intubated in track laborer, now extubated
- ABG on BiPAP with pCO2 100 (baseline around 60)
- IV steroids taper/discontinue quickly if able
- Patient intially given IB Abx; stopped; influenza positive, Oseltamavir given
- Afebrile today. Follow fever curve.
- Note history of silent aspiration by VSE
- COVID neg
- Productive cough, green sputum reported.
- Sputum culture: Pseudomonas [place]
- Patient started on Zosyn 3 days ago;
- CXR shows possible pneumonia, but could also be summation of shadows.
- Continues to be afebrile with normocytosis. However procalcitonin trending up.
- Will continue Zosyn for now.
2. ASCVD/Myocardial Injury
- Initial EKG was suspicious for STEMI (but NOT) and track laborer was activated --> showed no significant stenosis/occlusion --> Stent placed in 08/2024 (for L main dissection) is patent -->
- Chronic LBBB with periods of complete heart block per cards, discussing PPM but patient and family decline for the time being; benefits and risks discussed
- Continue dual antiplatelet therapy
- Appreciate cards
- Troponins downtrended - Myocardial injury likely on the basis of respiratory distress +/- CHF, etc.
3. Acute on Chronic HFpEF
- Elevated pressures noted during cath
- Patient transitioned from IV to oral Lasix
- Follow I/Os, daily weights, etc.
- Elevated Creatinine - 1.2, improving; Lasix held, though one dose given yesterday between units of pRBC; Continue on PRN basis.
4. Essential Hypertension
- BP elevated likely due to volume overload
- IV diuresis as noted above
- Follow for changes in BP control.
5. Hypothyroidism
- Stable.
- Continue T4 supplementation.
6. Superficial Phlebitis
- US Doppler of RUE: thrombus within R antecubital vein, right proximal to mid cephalic vein; brachial veins appear patent
- Start K Pad Administration
7. Thrombocytopenia
- Heparin Held
- Follow up HIT Panel
8. Anemia (resolved)
- Hb 10.4 this morning.
- No signs of overt bleeding.
- PT/PTT/INR WNL
- Consent Obtained; Type/Cross; 2 Units of pRBCs yesterday.
Attending Physician, Dr. Dupree spoke with patient's family and patient regarding hospice and comfort measures. See attending physician's addendum.
Code Status: DNR
Anticipated Discharge: 24 - 48 hours
Subjective/Interval History
-
Date of Service: November 22, 2024
Patient seen and examined while resting comfortably in bed. Patient states that she is feeling better and less fatigued this morning. Patient is status post 2 U pRBC transfusion yesterday.
Objective Data
-
Labs:
Laboratory Results
11/22/24
06:37
WBC 6.0
Hgb 10.4 L D
Hct 30.8 L
Plt Count 104 L D
Sodium 137
Potassium 3.6
Chloride 99
Carbon Dioxide 34 H
BUN 29 H
Creatinine 1.2 H
Glucose 81
Calcium 8.0 L
Vital Signs:
Vital Signs
Temp Pulse Resp BP Pulse Ox
97.5 F 80 16 138/54 96
11/22/24 02:41 11/22/24 02:41 11/22/24 02:41 11/22/24 02:41 11/22/24 02:41
I&O
11/21/24 11/22/24 11/23/24
06:59 06:59 06:59
Intake Total 760 / 760 1230 / 1230
Output Total 1150 / 1150
Balance 760 / 760 80 / 80
Review of Systems
-
History Source: Patient
Constitutional: Reports No Symptoms
Respiratory: Reports No Symptoms
Cardiac: Reports No Symptoms
Abdomen/GI: Reports No Symptoms
Musculoskeletal: Reports No Symptoms
Physical Exam
-
General: No Apparent Distress and Other (Frail)
HEENT: Normocephalic and Atraumatic
Respiratory: Wheezes (faint), Non Labored Respirations and Other (otherwise clear to auscultation)
Cardiac: Regular Rhythm and S1/S2
GI: Soft and Nontender
Musculoskeletal: No Clubbing, No Cyanosis, No Edema and Other (Ecchymosis of the RUE)
Skin: Warm and Dry
Neuro: Awake and Alert
Psych: Calm
Data Reviewed
-
Labs: Labs Reviewed by me and Discussed with Patient
[2024-11-22] MEDS: SYMBICORT 160/4.5 MCG INHALER 2 PUFF INH ×2 (07:59→19:35)
[2024-11-22] MEDS: DUONEB 3 ML INH ×4 (08:00→19:35)
--- NOTE | 2024-11-22 08:42 | W.PN.PUL3 ---
Today's Communication / Plan
-
Continue nocturnal BiPAP
Continue nebulizer therapy
Continue inhalers
Antibiotics per primary team
s/p course of Tamiflu
Keep SpO2 88-95% with supplemental O2 - wean as tolerated
Back on baseline prednisone
Hospice has been consulted at the request of the family (daughters x 2). No additional recommendations at this time. Pulmonary service will now sign off. Please reconsult if there are any additional questions/concerns, or if patient's respiratory
status deteriorates.
Assessment
-
79yo F with PMH advanced COPD on home O2 and trilogy vent at night, ASCVD, CAD s/p stent 08/2024, HFpEF who presented to ED 11/15/24 for shortness of breath. History obtained from chart review as patient remains intubated at this time. Prior to
admission, had cough for 3-4 days and became progressively lethargic and dyspneic. In the ED, she reported chest tightness, had an elevated troponin, and EKG changes concerning for STEMI. She was taken to slab polisher urgently, and cath was negative for
significant stenosis. She was started on BiPAP due to lethargy and after ABG showed hypercapnic respiratory failure, she was intubated for improved ventilation. Flu positive. Engineering Production Liaison consulted for ventilator/critical care management.
Now pulmonary following for respiratory failure/history of COPD.
Impression:
Acute on chronic hypercapnic/hypoxemic respiratory failure
Intubated 11/15
Extubated 11/16
Influenza-A positive
Elevated troponin- likely demand ischemia from acute illness, hypoxemia; cardiac cath negative 11/15/24
Elevated pressures during cath, suspect volume overload
Episodic complete heart block per telemetry
Physical deconditioning
RYAN
Acute anemia requiring 2 U PRBC transfusion on 11/21/2024
Conditions prior to admission:
Advanced COPD on home O2 and trilogy vent at night
ASCVD, CAD, PAD
HFpEF
Chronic LBBB
HTN
Hypothyroidism
Aortic stenosis s/p TAVR
Anxiety
Plan/recommendations
Overall clinically improved since admission, but still with significant shortness of breath that is debilitating and is acute on chronic
Extubated 11/16
Maintain on BiPAP with sleep
Blood gas 11/19/2024 respiratory alkalosis with pH 7.57, pCO2 54 --> most recent VBG 7.45/53/163- 11/21/2024
-
Lower extremity Dopplers negative for DVT from 11/16/2024; she does have a RUE superficial thrombus seen on RUE duplex from 11/19/2024
-
Continue Mucinex and continue with DuoNebs QID as patient was endorsing a worsening cough with phlegm production on 11/19/2024
Symbicort/Spiriva continues-outpatient regimen.
-
s/p course of tamiflu
-
Remains on Zosyn: No leukocytosis, afebrile.
CXR from 11/19/2024 shows possible opacification in the right lower lobe - ABx restarted on 11/19/2024 with Zosyn by primary team
Will complete 5 days of antibiotics. Defer to primary team
Procal 0.31 (11/20/2024)
Sputum culture from 11/19/2024 grew phipps-sensitive Pseudomonas aeruginosa
Continue prednisone currently at 10 mg (Baseline dose)
Follow up on ECG- question of complete heart block --> last EKG on 11/17/2024 showed sinus tachycardia with LBBB
Cardiology following - no indication for PPM at this time as per EP
Antiplatelets, anticoagulation per cardiology.
Troponin peaked at 0.468 on 11/16/2024 � no longer need to continue trending at this time as it was elevated on admission, then trended up likely secondary to cardiac cath
Diuretics per cardiology and primary team.
Echocardiogram normal biventricular function, well-seated AVR, with low peak/mean gradients; there was severe mitral annular calcification albeit with mild mitral stenosis
Monitor on telemetry
Continue diet as per LABORATORY DEVELOPMENT TECHNICIAN s/p VSE performed on 11/19, which showed silent aspiration with thin liquids and moderately thick liquids
Monitor electrolytes, supplement as needed to keep K>4, Mg>2
Monitor BG with goal >100 and <180ng/dL
Trend H&H and transfuse as needed to keep Hb >7 g/dL
- Hb was 6.7 on the morning of 11/21/2024 --> she was transfused 2 units and Hb this morning is 10.4
- No active bleeding seen
Code status: DNR
VTE ppx: SCDs only for now given drop in Hb on 11/21/2024 requiring 2 units PRBC transfusion
Hospice has been consulted at the request of the family (daughters x 2). No additional recommendations at this time. Pulmonary service will now sign off. Thank you for allowing us to be involved in the care of this patient. Please reconsult if
there are any additional questions/concerns, or if patient's respiratory status deteriorates.
Total time spent today was 37 minutes for this encounter. Time includes reviewing laboratory test/imaging results, reviewing pertinent medical records, obtaining and reviewing medical history, performing an appropriate exam, ordering medications,
tests and procedures. Time also includes documentation of this encounter, coordinating patient care and communicating with other healthcare professionals. Total time does not include separately billed tests performed on this date of service.
Subjective Data
-
Date of Service:
Date of Service: November 22, 2024
Chief Complaint: Pulmonary Follow Up
Subjective:
Patient was seen and evaluated today at bedside. Spoke with the patient's daughters, Glory and Nathalia, and they have agreed to consult hospice. Patient is currently on 4 L/min nasal cannula and breathing comfortably but still short of breath with
activity. She is making phlegm and says she is bringing it up okay. She denies chest pain, MCHUGH, nausea, vomiting, fevers or chills.
Review of Systems
General: Other (Negative unless mentioned above)
Objective Data
Data Reviewed
Vital Signs / I&O / Oxygen:
Vital Signs
Temp Pulse Resp BP Pulse Ox
97.5 F 87 16 138/54 94
11/22/24 02:41 11/22/24 08:05 11/22/24 08:05 11/22/24 02:41 11/22/24 08:05
Intake and Output
11/21/24 11/22/24 11/23/24
06:59 06:59 06:59
Intake Total 760 / 760 1230 / 1230
Output Total 1150 / 1150
Balance 760 / 760 80 / 80
SaO2 [ASV] 96
SaO2 [A/C] 99
SaO2 94
Nasal Cannula flow liters per 4
minute
Physical Exam
General: Respiratory Distress (negative), Comfortable, Chills (negative) and Sweats (negative)
HEENT: Normocephalic and Anicteric
Cardiovascular: S1-S2, Rub (negative) and Peripheral Edema (negative)
Respiratory: Wheeze (Faintly heard during expiration in the mid to upper lung [place]), Crackles (bilateral), Rhonchi (b/l), Non-Labored Respirations and Other (Diminished breath sounds bilaterally)
GI: Soft, Non Distended, Non Tender and Normal Bowel Sounds
Neurology: AO x 3 and Tremors (negative)
Skin: Warm, Dry and Bruising (Scattered)
Labs/Micro/Reports
Lab Data
11/22/24 06:37
11/22/24 06:37
Laboratory Results
11/21/24
10:28
PT 12.4
INR 0.88
APTT 28.1
Microbiology
11/19/24 11:26 Sputum Respiratory Culture - Final
Pseudomonas aeruginosa
11/19/24 11:26 Sputum Gram Stain - Final
[2024-11-22] MEDS: MYCOSTATIN ORAL SUSPENSION 5 ML PO ×3 (09:15→20:38)
[2024-11-22] MEDS: LIPITOR 40 MG PO (09:15)
[2024-11-22] MEDS: MUCINEX 1200 MG PO ×2 (09:15→20:38)
[2024-11-22] MEDS: VISBIOME 1 CAP PO (09:16)
[2024-11-22] MEDS: DELTASONE 10 MG PO (09:16)
[2024-11-22] MEDS: LEXAPRO 20 MG PO (09:16)
[2024-11-22] MEDS: PLAVIX 75 MG PO (09:16)
[2024-11-22] MEDS: THERAGRAN 1 TABLET PO (09:16)
[2024-11-22] MEDS: ASPIR LOW (ENTERIC COATED) 81 MG PO (09:16)
[2024-11-22] MEDS: MYCOSTATIN ORAL SUSPENSION PO (12:18)
--- NOTE | 2024-11-22 13:53 | HOSPNOTE ---
Addendum entered by Janis Cheney RN 11/22/24 14:40:
Referral received. Family was unable to stay until 5 pm when we are able to meet with them today. Plan is now to meet with family tomorrow at 10am to discuss hospice. More information to follow. CM updated.
Original Note:
Asked by CM to speak to the family regarding hospice services. Called and spoke to daughter Alannah. She reports that patient lives with her sister and has been living there for the past 7 years. Reviewed hospice services and philosophy. Reviewed out
of pocket cost for room and board at SNF vs private caregivers in the home. Alannah asked that we meet her and her sister in person this afternoon to further discuss at Alannah was going home at the time of the call to walk her dog. Hospice nurse will
meet them bedside after 2 pm to discuss. More information to follow. CM updated.
--- NOTE | 2024-11-22 14:11 | CM ---
Patient was seen at bedside, plan initially to go to SNF but family requested hospice assessment and discussion with daughter's as well as patient regarding comfort care and next steps. Patient indicated that she is comfortable with plan and Hospice
to talk to patient and family at 2pm. CM will continue to follow for discharge planning needs.
Plan; hospice assessment/discussion today
--- NOTE | 2024-11-22 14:34 | PTCARENOTE ---
pt daughter, casework specialist and MD discussed goals of care. came to consensus of comfort and a hospice consult at this time. pt no longer on tele, and has prn morphine ordered for breakthrough pain
[2024-11-23 03:30] VITALS: PULSE 2
[2024-11-23] MEDS: ZOSYN 50 IV ×4 (03:59→21:59)
[2024-11-23] MEDS: DUONEB 3 ML INH ×4 (05:53→22:12)
[2024-11-23] MEDS: SYMBICORT 160/4.5 MCG INHALER 2 PUFF INH ×2 (05:53→22:12)
[2024-11-23] MEDS: SYNTHROID 50 MCG PO (06:37)
[2024-11-23 07:42] VITALS: BP 116/44
[2024-11-23] MEDS: DELTASONE 10 MG PO (09:55)
[2024-11-23] MEDS: VISBIOME 1 CAP PO (09:55)
[2024-11-23] MEDS: THERAGRAN 1 TABLET PO (09:55)
[2024-11-23] MEDS: PLAVIX 75 MG PO (09:55)
[2024-11-23] MEDS: ASPIR LOW (ENTERIC COATED) 81 MG PO (09:55)
[2024-11-23] MEDS: LIPITOR 40 MG PO (09:55)
[2024-11-23] MEDS: MUCINEX 1200 MG PO ×2 (09:55→21:59)
[2024-11-23] MEDS: MYCOSTATIN ORAL SUSPENSION 5 ML PO ×4 (09:55→21:59)
[2024-11-23] MEDS: LEXAPRO 20 MG PO (09:55)
--- NOTE | 2024-11-23 11:12 | HOSPNOTE ---
Addendum entered by Janis Cheney RN 11/23/24 12:56:
Nurse checked back in with patient and family- they are feeling overwhelmed and undecided. CM updated. Hospice will continue to follow and be available if they opt for hospice services.
Original Note:
Met with daughters Nathalia and Julia separately to discuss hospice services and then met with patient and daughters to discuss hospice. Patient seems skeptical daughters are interested in hospice. Use of trilogy machine at night was discussed.
After checking with Dr. Lisa Morgan the family was informed that use of the trilogy machine is more aligned with palliative care. Hospice care would be appropriate if they want comfort care and not the trilogy machine. Patient and family informed.
They are discussing options.
--- NOTE | 2024-11-23 11:42 | PN.CDI ---
CDI
- -
CDI:
Physician Documentation Request
Admit Date: 11/15/24 21:28
Dear Doctor Vernon,
Patient admitted with COPD exacerbation.
11/23 Feeder Switchboard Operator Assessment: 'RD able to observe appearance of moderate loss at orbital, yarsani, clavicle. With estimated intakes of <75% for > 7 days and fat/muscle loss as noted, pt meeting criteria for moderate protein/calorie
malnutrition (ASPEN/AND guidelines, acute illness).'
Based on the above information and your assessment, which of the following most accurately represents the patient's nutritional status?
Moderate Protein Calorie Malnutrition
Other (please specify)
[place] Criteria ([facility] Hospitalist 2017)
2 or more criteria must be present for either
non severe or severe malnutrition
Note that the criteria differs related to the
presence of an acute or chronic illness
Acute Illness Chronic Illness
Energy Intake Non Severe: <75% for >7 days Non Severe: <75% for >1 month
Severe: <50% for >5 days Severe: <75% for >1 month
Weight Loss Non Severe: 1-2% over 1 week Non Severe: 5% over 1 month
5% over 1 month 7.5% over 3 months
7.5% over 3 months 10% over 6 months
1 year N/A 20% over 1 year
Severe: >2% over 1 week Severe: >5% over 1 month
>5% over 1 month >7.5% over 3 months
>7.5% over 3 months >10% over 6 months
1 year N/A >20% over 1 year
Body Fat Non Severe: Mild Decrease Non Severe: Mild Loss
Severe: Moderate Decrease Severe: Severe Loss
Muscle Mass Non Severe: Mild Decrease Non Severe: Mild Loss
Severe: Moderate Decrease Severe: Severe Loss
Fluid Accumulation Non Severe: Mild Accumulation Non Severe: Mild Accumulation
Severe: Moderate to severe Severe: Moderate to severe
accumulation accumulation
Reduced Deputy Harbormaster Strength Non Severe: N/A Non Severe: N/A
Severe: Measurably reduced Severe: Measurably reduced
Additional criteria that can be used to Determine if Mild or Moderate Malnutrition (Merck Manual 2018)
Mild Moderate Severe
Albumin gm/dl <3.0 gm/dl <2.5 gm/dl <2.0 gm/dl
Pre Albumin mg/dl <15 gm/dl <10 mg/dl <5.0 mg/dl
BMI <18.5 <17 <16
Use of terms such as suspected, likely, concern for, or probable (associated with a specific diagnosis that is being evaluated, monitored, or treated as if it exists) are acceptable and can be coded in the inpatient setting, when documented at the
time of discharge.
Thank you,
Cherry Jones RN, BSN
CDI Specialist
Available via [place] text
Please use your independent medical judgment in providing your response.
--- NOTE | 2024-11-23 13:28 | CM ---
Addendum entered by Deneen Hightower 11/23/24 16:27:
daughter to look into [facility] and talk to physicians tomorrow about options.
Addendum entered by Deneen Hightower 11/23/24 16:07:
CM met with patient and daughter about next steps. they are considering hospice and will continue to discuss options with physician. Patient daughter requested that they would like to talk to pulmonary about the [facility] and CM called to [facility] to
ask if patient would be allowed on their hospice to continue that option. CARLOS spoke with the clinical officer at [facility] who is looking into the options. [phone]. CM updated physician regarding family update.
Plan; hospice to home pending family choice and decisions
Original Note:
Patient seen at bedside, family talking to hospice/palliative care and family considering options. CM will continue to follow for discharge planning needs.
Plan; home with hospice/palliative care pending acceptance by hospice.
--- NOTE | 2024-11-23 15:01 | W.PN.HOSP.TC ---
Addendum entered and electronically signed by Krystal Dupree MD 11/23/24 17:01:
meets criteria for moderate protein calorie malnutrition
Addendum entered and electronically signed by Krystal Dupree MD 11/23/24 17:00:
I saw and evaluated the patient independently. I reviewed the resident�s note and agree with findings and plan as documented by Dr. Junior.
GENERAL: elderly frail female in no apparent distress
HEENT: NC/AT--O2 NC in place (wears at home)
HEART: regular rate and rhythm, +S1, +S2
LUNGS : coarse loose sounding breaths
ABDOM: soft, nontender, nondistended, + bowel sounds
EXT: no cyanosis, clubbing--swollen right arm with bruising/ecchymosis--soft and supple
NEUROLOGIC: grossly intact
11/22/24 Was getting ready to discharge the patient to [facility] as previously planned, however, daughters wanted to talk to us. They would like her to be comfortable. They are interested in hospice. They do not feel that she could rehab and do not
wish for her to suffer and be uncomfortable. She is DNR and did not want to be intubated in the first place. I am in full agreement that the patient has end-stage COPD and that hospice is appropriate. We have placed consult. Discharge to [place] has been canceled. Patient has been transitioned to comfort measures with as needed morphine as needed. As of 11/23/2024, patient did not require any as needed morphine. Daughters met with hospice this morning. They are contemplating their
options.
COPD with Acute Exacerbation likely from influenza A (positive) with Acute on Chronic Hypoxemic and Hypercapnic Respiratory Failure due to O2 and prednisone dependent COPD--intubated in [facility], now extubated-- ABG on BiPAP with pCO2 100 (baseline
around 60)--back on outpt prednisone dose--restarted IV abx (zosyn--day 5) as CXR with developing pna (done for green sputum per family), sputum culture with pseudomonas-- finish tamiflu-- Follow fever curve, etc. Note history of silent aspiration
by VSE--COVID neg
ASCVD/Myocardial Injury--Initial EKG suspicious for STEMI (but NOT) and [facility] activated- No significant stenosis/occlusion appreciated- Stent placed in 08/2024 (for L main dissection) is patent- Chronic LBBB with periods of complete heart block
per cards, no PPM per patient-- Continue DAPT--apprec cards- Continue to trend troponin - Myocardial injury likely on the basis of respiratory distress +/- CHF, etc.
Acute on Chronic HFpEF--BNP not significantly changed from prior--Elevated pressures noted during cath- Change IV Lasix to oral and follow I/Os, daily weights, etc---ECHO with EF 55-60% and mild mitral stenosis, no elevated pulm pressures
anemia--acute from unknown reason? (HGB on 11/15/24 was 12.0)--? blood draws, ? bled into arm with ecchymosis (arm soft does not appear tight)--Dr. Junior and myself spoke with daughter by phone to obtain consent (pt did sign and was agreeable to
blood transfusion) but did not want to pursue further workup (i. e. GI consult, EGD, colon, etc)--will transfuse 2 units pRBC with lasix in between--HGB improved to 10.4
RYAN--creat up to 1.2-- follow--baseline 0.9
right arm swelling--US positive for superficial clot--deep veins patent--cont warm compresses--no need for anticoagulation
thrombocytopenia--was on SQ heparin--stop and send HIT panel (pending)
Essential Hypertension--BP improved
Hypothyroidism- Stable. Continue T4 supplementation.
Aortic Stenosis s/p TAVR--Descending Thoracic Aorta Stent
underweight BMI
DVT Prophylaxis: Subcut Heparin
Code Status: DNR
Original Note:
Today's Communication/Plan
-
.
Assessment / Plan
Assessment / Plan
79F
Attending Physician, Dr. Dupree spoke with patient's family and patient regarding hospice and comfort measures. See attending physician's addendum.
- Comfort Measures
- Morphine as needed
- Discharge in 24-48 hours on hospice.
1. Acute COPD Exacerbation likely 2/2 flu A (positive) with Acute on Chronic Hypoxemic and Hypercapnic Respiratory Failure
- Intubated in [facility], now extubated
- ABG on BiPAP with pCO2 100 (baseline around 60)
- IV steroids taper/discontinue quickly if able
- Patient intially given IB Abx; stopped; influenza positive, Oseltamavir given
- Afebrile today. Follow fever curve.
- Note history of silent aspiration by VSE
- COVID neg
- Productive cough, green sputum reported.
- Sputum culture: Pseudomonas [place]
- Patient started on Zosyn 4 days ago;
- CXR shows possible pneumonia, but could also be summation of shadows.
- Continues to be afebrile with normocytosis. However procalcitonin trending up.
- Will continue Zosyn for now.
2. ASCVD/Myocardial Injury
- Initial EKG was suspicious for STEMI (but NOT) and [facility] was activated --> showed no significant stenosis/occlusion --> Stent placed in 08/2024 (for L main dissection) is patent -->
- Chronic LBBB with periods of complete heart block per cards, discussing PPM but patient and family decline for the time being; benefits and risks discussed
- Continue dual antiplatelet therapy
- Appreciate cards
- Troponins downtrended - Myocardial injury likely on the basis of respiratory distress +/- CHF, etc.
3. Acute on Chronic HFpEF
- Elevated pressures noted during cath
- Patient transitioned from IV to oral Lasix
- Follow I/Os, daily weights, etc.
- Elevated Creatinine - 1.2, improving; Lasix held, though one dose given yesterday between units of pRBC; Continue on PRN basis.
4. Essential Hypertension
- BP elevated likely due to volume overload
- IV diuresis as noted above
- Follow for changes in BP control.
5. Hypothyroidism
- Stable.
- Continue T4 supplementation.
6. Superficial Phlebitis
- US Doppler of RUE: thrombus within R antecubital vein, right proximal to mid cephalic vein; brachial veins appear patent
- Start K Pad Administration
7. Thrombocytopenia
- Heparin Held
- Follow up HIT Panel
8. Anemia (resolved)
- Hb 10.4 this morning.
- No signs of overt bleeding.
- PT/PTT/INR WNL
- Consent Obtained; Type/Cross; 2 Units of pRBCs yesterday.
Code Status: DNR
Anticipated Discharge: 24 - 48 hours
Subjective/Interval History
-
Date of Service: November 23, 2024
Patient seen and examined while resting comfortably in bed. Patient denies any acute complaints this morning. Specifically denies shortness of breath, chest pain, lower extremity pain or swelling. Patient notes arm feels better. Patient notes
residual cough.
Objective Data
-
Vital Signs:
Vital Signs
Temp Pulse Resp BP Pulse Ox
98.6 F 80 24 116/44 96
11/23/24 07:42 11/23/24 11:30 11/23/24 11:30 11/23/24 07:42 11/23/24 08:38
I&O
11/22/24 11/23/24 11/24/24
06:59 06:59 06:59
Intake Total 1230 / 1230 820 / 820
Output Total 1150 / 1150
Balance 80 / 80 820 / 820
Review of Systems
-
History Source: Patient
Constitutional: Reports No Symptoms
Respiratory: Reports Cough
Cardiac: Reports No Symptoms
Musculoskeletal: Reports Other (ecchymosis of RUE)
Neuro: Reports No Symptoms
Physical Exam
-
General: No Apparent Distress and Other (frail, elderly)
HEENT: Normocephalic and Atraumatic
Respiratory: Wheezes (diffuse, faint) and Non Labored Respirations
Cardiac: Regular Rhythm and S1/S2
GI: Soft and Nontender
Musculoskeletal: No Clubbing, No Cyanosis and Other (ecchymotic RUE, improving)
Skin: Warm and Dry
Neuro: Awake and Alert
Psych: Calm
--- NOTE | 2024-11-23 18:42 | W.PN.UPDATE ---
Update Note
Progress Note Update
Asked to see the patient regarding her decision to pursue hospice. I saw the patient and she was resting in a chair in no acute distress. I answered all of her questions. I did say that she does have severe COPD with severely reduced gas exchange
capacity defect via PFT testing. I said that the decision to pursue hospice is strictly hers, but given her multiple comorbidities especially how severely affected her lung condition is, it is reasonable to want to be comfortable and to pursue
hospice. She agreed with me. Emotional support was provided.
[2024-11-23] MEDS: TYLENOL 650 MG PO (22:01)
[2024-11-23 22:42] VITALS: PULSE 2; PULSE 82
[2024-11-23 23:20] VITALS: BP 111/43
[2024-11-24] MEDS: ZOSYN 50 IV ×2 (02:02→09:08)
[2024-11-24 03:32] VITALS: PULSE 2
[2024-11-24] MEDS: MORPHINE SULFATE 1 MG IV ×3 (05:32→12:10)
[2024-11-24] MEDS: VENTOLIN NEBULES 2.5 MG INH (05:36)
[2024-11-24] MEDS: SYNTHROID 50 MCG PO (06:21)
[2024-11-24 07:10] VITALS: BP 161/61
[2024-11-24] MEDS: DUONEB 3 ML INH (07:17)
[2024-11-24] MEDS: SYMBICORT 160/4.5 MCG INHALER 2 PUFF INH (07:18)
[2024-11-24] MEDS: LIPITOR 40 MG PO (09:09)
[2024-11-24] MEDS: TYLENOL 650 MG PO (09:09)
[2024-11-24] MEDS: ASPIR LOW (ENTERIC COATED) 81 MG PO (09:09)
[2024-11-24] MEDS: MYCOSTATIN ORAL SUSPENSION 5 ML PO (09:09)
[2024-11-24] MEDS: VISBIOME 1 CAP PO (09:09)
[2024-11-24] MEDS: MUCINEX 1200 MG PO (09:10)
[2024-11-24] MEDS: DELTASONE 10 MG PO (09:10)
[2024-11-24] MEDS: THERAGRAN 1 TABLET PO (09:10)
[2024-11-24] MEDS: PLAVIX 75 MG PO (09:10)
[2024-11-24] MEDS: LEXAPRO 20 MG PO (09:10)
[2024-11-24] MEDS: DUONEB INH ×2 (11:30→14:32)
[2024-11-24] MEDS: FLUSH (NSS) 1 FLUSH IV (12:13)
[2024-11-24] MEDS: MYCOSTATIN ORAL SUSPENSION PO (13:14)
[2024-11-24] MEDS: MORPHINE 100 IV (13:19)
[2024-11-24] MEDS: MORPHINE SULFATE 2 MG IV ×4 (13:24→14:50)
--- NOTE | 2024-11-24 13:42 | W.PN.HOSP.TC ---
Addendum entered and electronically signed by Krystal Dupree MD 11/24/24 14:46:
I saw and evaluated the patient independently. I reviewed the resident�s note and agree with findings and plan as documented by Dr. Junior.
GENERAL: elderly frail female in distress--minimally responsive
HEENT: NC/AT--O2 NC in place (wears at home)
HEART: regular rate and rhythm, +S1, +S2
LUNGS : coarse loose sounding breaths
ABDOM: soft, nontender, nondistended, + bowel sounds
EXT: no cyanosis, clubbing--swollen right arm with bruising/ecchymosis--soft and supple
NEUROLOGIC: grossly intact
11/22/24 Was getting ready to discharge the patient to [facility] as previously planned, however, daughters wanted to talk to us. They would like her to be comfortable. They are interested in hospice. They do not feel that she could rehab and do not
wish for her to suffer and be uncomfortable. She is DNR and did not want to be intubated in the first place. I am in full agreement that the patient has end-stage COPD and that hospice is appropriate. We have placed consult. [facility]charge to [facility]. Patient has been transitioned to comfort measures with as needed morphine as needed. As of 11/23/2024, patient did not require any as needed morphine. Daughters met with hospice this morning. They are contemplating their
options.
pt in distress and requiring PRN morphine bolus D8S--fq meets criteria for inpatient hospice--spoke with hospice aide control systems engineer and family agreeable to inpt hospice--d/c to inpt hospice
COPD with Acute Exacerbation likely from influenza A (positive) with Acute on Chronic Hypoxemic and Hypercapnic Respiratory Failure due to O2 and prednisone dependent COPD--intubated in cath lab manager, now extubated-- ABG on BiPAP with pCO2 100 (baseline
around 60)--back on outpt prednisone dose--will stop IV abx (zosyn--day 5) as going on hospice-- sputum culture with pseudomonas-- finish tamiflu-- Follow fever curve, etc. Note history of silent aspiration by VSE--COVID neg
ASCVD/Myocardial Injury--Initial EKG suspicious for STEMI (but NOT) and cath lab manager activated- No significant stenosis/occlusion appreciated- Stent placed in 08/2024 (for L main dissection) is patent- Chronic LBBB with periods of complete heart block
per cards, no PPM per patient-- Continue DAPT--apprec cards - Myocardial injury likely on the basis of respiratory distress +/- CHF, etc.
Acute on Chronic HFpEF--BNP not significantly changed from prior--Elevated pressures noted during cath- Change IV Lasix to oral and follow I/Os, daily weights, etc---ECHO with EF 55-60% and mild mitral stenosis, no elevated pulm pressures
anemia--acute from unknown reason? (HGB on 11/15/24 was 12.0)--? blood draws, ? bled into arm with ecchymosis (arm soft does not appear tight)--Dr. Junior and myself spoke with daughter by phone to obtain consent (pt did sign and was agreeable to
blood transfusion) but did not want to pursue further workup (i. e. GI consult, EGD, colon, etc)--will transfuse 2 units pRBC with lasix in between--HGB improved to 10.4
RYAN--creat up to 1.2-- follow--baseline 0.9
right arm swelling--US positive for superficial clot--deep veins patent--cont warm compresses--no need for anticoagulation
thrombocytopenia--was on SQ heparin--stop and send HIT panel (pending)
Essential Hypertension--BP improved
Hypothyroidism- Stable. Continue T4 supplementation.
Aortic Stenosis s/p TAVR--Descending Thoracic Aorta Stent
underweight BMI
DVT Prophylaxis: Subcut Heparin
Code Status: DNR
Original Note:
Today's Communication/Plan
-
Discharge to inpatient hospice today.
Assessment / Plan
Assessment / Plan
79F
Attending Physician, Dr. Dupree spoke with patient's family and patient regarding hospice and comfort measures. See attending physician's addendum.
-11/23:
- Comfort Measures
- Morphine as needed
-11/24:
- Patient and family agree to inpatient hospice; morphine titration protocol started.
1. Acute COPD Exacerbation likely 2/2 flu A (positive) with Acute on Chronic Hypoxemic and Hypercapnic Respiratory Failure
- Intubated in cath lab manager, now extubated
- ABG on BiPAP with pCO2 100 (baseline around 60)
- IV steroids taper/discontinue quickly if able
- Patient intially given IB Abx; stopped; influenza positive, Oseltamavir given
- Afebrile today. Follow fever curve.
- Note history of silent aspiration by VSE
- COVID neg
- Productive cough, green sputum reported.
- Sputum culture: Pseudomonas [place]
- Patient started on Zosyn 4 days ago;
- CXR shows possible pneumonia, but could also be summation of shadows.
- Continues to be afebrile with normocytosis. However procalcitonin trending up.
- Will continue Zosyn for now.
2. ASCVD/Myocardial Injury
- Initial EKG was suspicious for STEMI (but NOT) and cath lab manager was activated --> showed no significant stenosis/occlusion --> Stent placed in 08/2024 (for L main dissection) is patent -->
- Chronic LBBB with periods of complete heart block per cards, discussing PPM but patient and family decline for the time being; benefits and risks discussed
- Continue dual antiplatelet therapy
- Appreciate cards
- Troponins downtrended - Myocardial injury likely on the basis of respiratory distress +/- CHF, etc.
3. Acute on Chronic HFpEF
- Elevated pressures noted during cath
- Patient transitioned from IV to oral Lasix
- Follow I/Os, daily weights, etc.
- Elevated Creatinine - 1.2, improving; Lasix held, though one dose given yesterday between units of pRBC; Continue on PRN basis.
4. Essential Hypertension
- BP elevated likely due to volume overload
- IV diuresis as noted above
- Follow for changes in BP control.
5. Hypothyroidism
- Stable.
- Continue T4 supplementation.
6. Superficial Phlebitis
- US Doppler of RUE: thrombus within R antecubital vein, right proximal to mid cephalic vein; brachial veins appear patent
- K pad
7. Thrombocytopenia
- Heparin Held
- Follow up HIT Panel
8. Anemia (resolved)
- Hb 10.4 this morning.
- No signs of overt bleeding.
- PT/PTT/INR WNL
- Consent Obtained; Type/Cross; 2 Units of pRBCs yesterday.
Code Status: DNR
Anticipated Discharge: Today
Subjective/Interval History
-
Date of Service: November 24, 2024
Patient increased discomfort and trouble breathing this morning. Required 1 dose morphine overnight, and then progressively more frequent dosing over the morning hours. Inpatient hospice was recommended to the patient's family and they are in
agreement.
Objective Data
-
Vital Signs:
Vital Signs
Temp Pulse Resp BP Pulse Ox
98.3 F 110 18 161/61 90
11/24/24 07:10 11/24/24 07:26 11/24/24 07:26 11/24/24 07:10 11/24/24 07:26
I&O
11/23/24 11/24/24 11/25/24
06:59 06:59 06:59
Intake Total 820 / 820 100 / 100
Balance 820 / 820 100 / 100
Review of Systems
-
Unable to obtain full review of systems at this time due to: Acuity
Physical Exam
-
General: Appears Chronically Ill and Other (Frail, elderly woman)
HEENT: Normocephalic and Atraumatic
Respiratory: Wheezes (diffuse wheezes ) and Other (increased breathing effort compared to yesterday)
Cardiac: Regular Rhythm and S1/S2
GI: Soft and Nontender
Musculoskeletal: No Clubbing, No Cyanosis and No Edema
Skin: Warm
Neuro: Awake
[2024-11-24] MEDS: ROBINUL 0.2 MG IV (14:08)
--- NOTE | 2024-11-24 14:45 | W.DCSUMMARY ---
Addendum entered and electronically signed by Krystal Dupree MD 11/24/24 15:44:
Read, reviewed, and agree. See same day progress note for additional details. Time spent coordinating care, DC planning, review of DC plan of care with resident, transition of care, review of records in EMR, med rec, consults, notes, d/w
consultants, nursing, family, and CM = 36 minutes
Original Note:
Discharge Summary
Discharge Data
Date of Admission: 11/15/24
Date of Discharge: 11/24/24
-
Pending Results: No
Hospital Course
Ms. Aguilar is a 79-year-old female with a past medical history of coronary artery disease status post stent, congestive heart failure, chronic obstructive pulmonary disease on oxygen, aortic stenosis, hypothyroidism, and psoriasis who presented to
the emergency department at [facility] on 11/15/2024 with shortness of breath. At the time the patient complained of tightness as well as difficulty breathing, stated that it felt similar to when she needed her stent in August. The
patient's daughter provided additional history, stating that the patient had been complaining of shortness of breath and that her nebulizers did not help, patient had cough for a few weeks, and patient had ongoing leg swelling despite compliance
with Lasix.
In the emergency department the patient was in moderate respiratory distress with rales at the bases. On arrival the patient was placed on nasal cannula with normal saturations. The patient looked acutely unwell with difficulty speaking in full
sentences. EKG exhibited a possible anteroseptal infarct and the case was discussed with interventional cardiology. The decision was made to call a STEMI patient was given aspirin, nitro, Brilinta, and heparin. Shortly afterwards, the patient
complained of worsened difficulty breathing she was placed on a nonrebreather while awaiting respiratory for BiPAP. The patient's work of breathing temporarily improved however given hypertension, decision was made to proceed with BiPAP for
catheterization. Patient was transferred up to the catheterization suite in stable condition.
Catheterization revealed no obstructive coronary disease with a patent prior stent. It did however note systemic hypertension and elevated left ventricular filling pressures in the setting of severe hypercarbic respiratory failure. Arterial blood
gas done while on BiPAP showed hypercapnic respiratory failure and the decision was made to intubate the patient for improved ventilation. Additionally she received 40 mg of Lasix IV during the case. Patient was admitted postcatheterization to the
CVICU. Post procedurally, the patient tested influenza A positive. It was suspected that influenza and pneumonia were the inciting initial events. The patient was started on Tamiflu. The patient was subsequently extubated, and restarted on
BiPAP. Her breathing initially started to get better. Patient only required BiPAP at night and was on nasal cannula during the day. Patient began bringing up green phlegm with coughing. Chest X-Ray suggested a possible pneumonia and sputum culture
revealed Pseduomonas. Patient was started on Zosyn. The patient was getting ready to be discharged to [facility] as planned by the team and the patient's family, however, family and patient are interested in hospice. They did not feel that she could
do rehab and did not wish for her to suffer and be uncomfortable. The patient was DNR and did not want to be intubated in the first place. Since the medical team was in agreement that the patient has end-stage COPD they felt that hospice was
appropriate. While in discussion regarding hospice options, the patient's condition worsened on 11/24/2024. The medical team discussed this with the patient's family and all are in agreement that the patient would begin on inpatient hospice that day.
Discharge Plan
-
Patient Disposition: Hospice - Inpatient [facility]
Discharge Orders:
Discharge Patient (As Directed); Ordered 11/24/24
Ordered By: Krystal Dupree
Discharge Date and Time
Discharge Date/Time: 11/24/24 15:04
Print Language: AMHARIC
[2024-11-24] MEDS: ATIVAN 0.5 MG PO (14:50)
== END 2024-11-24 15:04 | disposition hospice, inpatient (51) | DRG 208 ==
LOC: 2 NORTH 21:28
PROVIDERS: Internal Medicine Critical Care Medicine; Physician Assistant Medical; ADMITTING PHYSICIAN Hospitalist; ATTENDING PHYSICIAN Internal Medicine; CONSULT PHYSICIAN Internal Medicine Critical Care Medicine; EMERGENCY PHYSICIAN Student in an Organized Health Care Education/Training Program; FAMILY PHYSICIAN Family Medicine; OTHER PHYSICIAN Student in an Organized Health Care Education/Training Program
PROC: 5A1935Z Respiratory Ventilation, Less than 24 Consecutive Hours (ICD-10-PCS; 2024-11-15)
PROC: 4A023N7 Measurement of Cardiac Sampling and Pressure, Left Heart, Percutaneous Approach (ICD-10-PCS; 2024-11-15)
PROC: B2151ZZ Fluoroscopy of Left Heart using Low Osmolar Contrast (ICD-10-PCS; 2024-11-15)
PROC: 0BH17EZ Insertion of Endotracheal Airway into Trachea, Via Natural or Artificial Opening (ICD-10-PCS; 2024-11-15)
PROC: B2111ZZ Fluoroscopy of Multiple Coronary Arteries using Low Osmolar Contrast (ICD-10-PCS; 2024-11-15)
PROC: 5A09357 Assistance with Respiratory Ventilation, Less than 24 Consecutive Hours, Continuous Positive Airway Pressure (ICD-10-PCS; 2024-11-18)
PROC: 30233N1 Transfusion of Nonautologous Red Blood Cells into Peripheral Vein, Percutaneous Approach (ICD-10-PCS; 2024-11-21)
DX: J10.01 Influenza due to other identified influenza virus with the same other identified influenza virus pneumonia (principal); I50.33 Acute on chronic diastolic (congestive) heart failure; J96.21 Acute and chronic respiratory failure with hypoxia; J96.22 Acute and chronic respiratory failure with hypercapnia; J44.1 Chronic obstructive pulmonary disease with (acute) exacerbation; I5A Non-ischemic myocardial injury (non-traumatic); J44.0 Chronic obstructive pulmonary disease with (acute) lower respiratory infection; I44.2 Atrioventricular block, complete; I47.19 Other supraventricular tachycardia; N17.9 Acute kidney failure, unspecified; E87.3 Alkalosis; Z68.1 Body mass index [BMI] 19.9 or less, adult; E44.0 Moderate protein-calorie malnutrition; D69.6 Thrombocytopenia, unspecified; Z66 Do not resuscitate; I11.0 Hypertensive heart disease with heart failure; I44.7 Left bundle-branch block, unspecified; E03.9 Hypothyroidism, unspecified; F32.A Depression, unspecified; F41.9 Anxiety disorder, unspecified; I73.9 Peripheral vascular disease, unspecified; L40.8 Other psoriasis; J43.9 Emphysema, unspecified; D64.9 Anemia, unspecified; I80.8 Phlebitis and thrombophlebitis of other sites; I25.10 Atherosclerotic heart disease of native coronary artery without angina pectoris; Z11.52 Encounter for screening for COVID-19; Z79.02 Long term (current) use of antithrombotics/antiplatelets; Z79.82 Long term (current) use of aspirin; Z79.899 Other long term (current) drug therapy; Z87.891 Personal history of nicotine dependence; Z95.3 Presence of xenogenic heart valve; Z95.5 Presence of coronary angioplasty implant and graft; Z99.81 Dependence on supplemental oxygen
CPT/HCPCS: 36600; 71045; 71046; 74230; 80048; 80053; 80061; 82330; 82728; 82805; 82962; 83036; 83540; 83550; 83735; 83880; 84100; 84132; 84145; 84478; 84484; 85025; 85027; 85045; 85610; 85730; 86022; 86850; 86900; 86901; 86920; 87070; 87071; 87186; 87205; 87502; 87811; 92526; 92610; 92611; 93005; 93307; 93458; 93970; 93971; 94002; 94003; 94640; 94660; 97116; 97162; 97166; 97530; 99291; C1887; C1894; P9016; Q9957; Q9967

== ENCOUNTER 2024-11-24 15:31 | Inpatient (IN) | payer OTHER, SELFPAY ==
--- NOTE | 2024-11-24 15:12 | ADM.HSP ---
Addendum entered and electronically signed by Krystal Dupree MD 11/24/24 15:48:
I personally performed a history and physical exam of the patient and discussed management with the resident. I reviewed the resident's note and agree with the documented findings and plan of care HPI/CC.
GENERAL: elderly frail female in distress--minimally responsive
HEENT: NC/AT--O2 NC [address] (wears at home)
HEART: regular rate and rhythm, +S1, +S2
LUNGS : coarse loose sounding breaths
ABDOM: soft, nontender, nondistended, + bowel sounds
EXT: no cyanosis, clubbing--swollen right arm with bruising/ecchymosis--soft and supple
NEUROLOGIC: grossly intact
end stage COPD--pt now in resp distress-- requiring PRN morphine bolus Q6R--jf meets criteria for inpatient hospice--spoke with fiberglass model maker bone char kiln tender and family agreeable to inpt hospice--d/c to inpt hospice
OTHER MEDICAL ISSUES:
ASCVD/Myocardial Injury
Acute on Chronic HFpEF
anemia--acute from unknown reason
RYAN
right arm swelling--US positive for superficial clot--deep veins patent
thrombocytopenia
Essential Hypertension
Hypothyroidism
Aortic Stenosis s/p TAVR
moderate protein calorie malnutrition
DNR
Original Note:
Admission - Hospice
History of Present Illness
Ms. Aguilar is a 79-year-old female with a past medical history of coronary artery disease status post stent, congestive heart failure, chronic obstructive pulmonary disease on oxygen, aortic stenosis, hypothyroidism, and psoriasis who presented to
the emergency department at [facility] on 11/15/2024 with shortness of breath. At the time the patient complained of tightness as well as difficulty breathing, stated that it felt similar to when she needed her stent in August. The
patient's daughter provided additional history, stating that the patient had been complaining of shortness of breath and that her nebulizers did not help, patient had cough for a few weeks, and patient had ongoing leg swelling despite compliance
with Lasix.
In the emergency department the patient was in moderate respiratory distress with rales at the bases. On arrival the patient was placed on nasal cannula with normal saturations. The patient looked acutely unwell with difficulty speaking in full
sentences. EKG exhibited a possible anteroseptal infarct and the case was discussed with interventional cardiology. The decision was made to call a STEMI patient was given aspirin, nitro, Brilinta, and heparin. Shortly afterwards, the patient
complained of worsened difficulty breathing she was placed on a nonrebreather while awaiting respiratory for BiPAP. The patient's work of breathing temporarily improved however given hypertension, decision was made to proceed with BiPAP for
catheterization. Patient was transferred up to the catheterization suite in stable condition.
Catheterization revealed no obstructive coronary disease with a patent prior stent. It did however note systemic hypertension and elevated left ventricular filling pressures in the setting of severe hypercarbic respiratory failure. Arterial blood
gas done while on BiPAP showed hypercapnic respiratory failure and the decision was made to intubate the patient for improved ventilation. Additionally she received 40 mg of Lasix IV during the case. Patient was admitted postcatheterization to the
CVICU. Post procedurally, the patient tested influenza A positive. It was suspected that influenza and pneumonia were the inciting initial events. The patient was started on Tamiflu. The patient was subsequently extubated, and restarted on
BiPAP. Her breathing initially started to get better. Patient only required BiPAP at night and was on nasal cannula during the day. Patient began bringing up green phlegm with coughing. Chest X-Ray suggested a possible pneumonia and sputum culture
revealed Pseduomonas. Patient was started on Zosyn. The patient was getting ready to be discharged to [facility] as planned by the team and the patient's family, however, family and patient are interested in hospice. They did not feel that she could
do rehab and did not wish for her to suffer and be uncomfortable. The patient was DNR and did not want to be intubated in the first place. Since the medical team was in agreement that the patient has end-stage COPD they felt that hospice was
appropriate. While in discussion regarding hospice options, the patient's condition worsened on 11/24/2024. The medical team discussed this with the patient's family and all are in agreement that the patient would begin on inpatient hospice that
day.
The patient is now on inpatient hospice.
Reason for Hospice Admission
End-Stage COPD
Review of Systems
History Source: Patient
Respiratory: Trouble Breathing
Physical Exam
General: Appears Chronically Ill
Respiratory: Other (Diffuse wheezes, increased work of breathing)
Cardiology: Regular Rhythm and S1/S2
GI: Soft and Nontender
Musculoskeletal: Other (area of ecchymosis on the right upper extremity that is improving)
Skin: Warm
Neuro: Awake
Psych: Calm
Assessment/Medication Plan
Generic Name Dose Route Start Last Admin
Trade Name Freq PRN Reason Stop Dose Admin
Bisacodyl 10 mg 11/24/24 14:23
Bisacodyl 10 Mg Rectal Suppository RECTAL 12/22/24 14:22
DAILYPRN PRN
if no BM for 3 days
Glycopyrrolate 0.2 mg 11/24/24 14:23
Glycopyrrolate 0.2 Mg/Ml Vial IV 12/22/24 14:22
Q4HPRN PRN
excessive secretions
Glycopyrrolate 0.2 mg 11/24/24 14:40
Glycopyrrolate 0.2 Mg/Ml Vial IV 12/22/24 14:39
Q4HPRN PRN
excessive secretions
Morphine Sulfate/Sodium Chloride 100 mg in 100 mls @ 0 mls/hr 11/24/24 14:30
Morphine IV
PER PROTOCOL CORIE
Protocol
Per Protocol
Lorazepam 0.5 mg 11/24/24 14:23
Lorazepam 2 Mg/Ml Vial IV 12/22/24 14:22
Q2HPRN PRN
anxiety
Protocol
Lorazepam 0.5 mg 11/24/24 15:00
Lorazepam 2 Mg/Ml Vial IV 12/22/24 14:59
Q4H CORIE
Lorazepam 0.5 mg 11/24/24 14:39
Lorazepam 2 Mg/Ml Vial IV 12/22/24 14:38
Q1HPRN PRN
terminal agitation
Morphine Sulfate 0 mg 11/24/24 14:23
Morphine 2 Mg/Ml Syringe IV 12/08/24 14:22
[id number] PRN
moderate-severe pain / dyspnea
Protocol
Ondansetron HCl 4 mg 11/24/24 14:23
Ondansetron 4 Mg/2 Ml Vial IV 12/22/24 14:22
Q6HPRN PRN
nausea/vomiting
Pharmacy Profile Note 0 unit 11/24/24 15:[address] 1 Unit IV 12/22/24 14:59
DIRECTED CORIE
Data Reviewed
Old Records: Reviewed
[2024-11-24] MEDS: NSS (PRESERVATIVE FREE) 0.25 ML IV ×2 (16:20→20:50)
[2024-11-24] MEDS: ATIVAN 0.5 MG IV ×2 (16:21→20:52)
--- NOTE | 2024-11-24 22:01 | HOSPNOTE ---
Patient was admitted inpatient hospice level of care. Patient meets inpatient hospice level of care due to frequent nursing assessments and medication titration that could not be managed in the outpatient setting. Patient is being managed for
dyspnea with a morphine infusion at 2 mg /hr with IVP morphine prn for breakthrough. Patient is also managed for anxiety with IV ativan q4h with q1h prn available for breakthrough. These symptoms could not be managed in the outpatient setting.
Patient will be seen by hospice daily. Emotional support provided.
[2024-11-24 23:15] VITALS: BP 129/42
[2024-11-25] MEDS: ATIVAN 0.5 MG IV (00:12)
[2024-11-25] MEDS: NSS (PRESERVATIVE FREE) 0.25 ML IV (00:13)
--- NOTE | 2024-11-25 04:15 | PTCARENOTE ---
Pt on hospice care, no spontaneous heart tones or respirations noted at this time. Patient not responsive to verbal stimuli. CHILD SPECIALIST outside solar sales consultant made aware and at bedside to pronounce pt. Family at bedside, all pt belongings given to family.
--- NOTE | 2024-11-25 04:49 | W.PN.DEATH ---
Pronouncement of
-
Called to see patient to pronounce.
No spontaneous heart tones or respirations noted.
Patient not responsive to verbal stimuli.
Patient is pronounced .
Time of : 04:19
Date of : 11/25/24
Cause of : end stage copd
Family Notified: Yes (at bedside)
[2024-11-25] MEDS: NSS (PRESERVATIVE FREE) IV (05:05)
[2024-11-25] MEDS: ATIVAN IV (05:05)
--- NOTE | 2024-11-25 15:41 | W.DCSUMMARY ---
Addendum entered and electronically signed by Krystal Dupree MD 11/25/24 15:50:
Read, reviewed, and agree. See same day progress note for additional details. Time spent coordinating care, DC planning, review of DC plan of care with resident, transition of care, review of records in EMR, med rec, consults, notes, d/w
consultants, nursing, family, and CM = 20 minutes
Original Note:
Discharge Summary
Discharge Data
Date of Admission: 11/24/24
Date of Discharge: 11/25/24
Total time spent discharging patient (in min): 20
-
Pending Results: No
Additional Pending Results:
Ms. Aguilar was a 79-year-old female with a past medical history of coronary artery disease status post stent, congestive heart failure, chronic obstructive pulmonary disease on oxygen, aortic stenosis, hypothyroidism, and psoriasis who presented to
the emergency department at [facility] on 11/15/2024 with shortness of breath. At the time the patient complained of tightness as well as difficulty breathing, stated that it felt similar to when she needed her stent in August. The
patient's daughter provided additional history, stating that the patient had been complaining of shortness of breath and that her nebulizers did not help, patient had cough for a few weeks, and patient had ongoing leg swelling despite compliance
with Lasix.
In the emergency department the patient was in moderate respiratory distress with rales at the bases. On arrival the patient was placed on nasal cannula with normal saturations. The patient looked acutely unwell with difficulty speaking in full
sentences. EKG exhibited a possible anteroseptal infarct and the case was discussed with interventional cardiology. The decision was made to call a STEMI patient was given aspirin, nitro, Brilinta, and heparin. Shortly afterwards, the patient
complained of worsened difficulty breathing she was placed on a nonrebreather while awaiting respiratory for BiPAP. The patient's work of breathing temporarily improved however given hypertension, decision was made to proceed with BiPAP for
catheterization. Patient was transferred up to the catheterization suite in stable condition.
Catheterization revealed no obstructive coronary disease with a patent prior stent. It did however note systemic hypertension and elevated left ventricular filling pressures in the setting of severe hypercarbic respiratory failure. Arterial blood
gas done while on BiPAP showed hypercapnic respiratory failure and the decision was made to intubate the patient for improved ventilation. Additionally she received 40 mg of Lasix IV during the case. Patient was admitted postcatheterization to the
CVICU. Post procedurally, the patient tested influenza A positive. It was suspected that influenza and pneumonia were the inciting initial events. The patient was started on Tamiflu. The patient was subsequently extubated, and restarted on
BiPAP. Her breathing initially started to get better. Patient only required BiPAP at night and was on nasal cannula during the day. Patient began bringing up green phlegm with coughing. Chest X-Ray suggested a possible pneumonia and sputum culture
revealed Pseduomonas. Patient was started on Zosyn. The patient was getting ready to be discharged to [facility] ([facility] as planned by the team and the patient's family, however, family and patient are interested in hospice. They did not feel that she could
do rehab and did not wish for her to suffer and be uncomfortable. Since the medical team was in agreement that the patient has end-stage COPD they felt that hospice was appropriate. While in discussion regarding hospice options, the patient's
condition worsened on 11/24/2024. The medical team discussed this with the patient's family and all are in agreement that the patient would begin on inpatient hospice that day.
After 1 day on inpatient hospice, the overnight provider was called to the room for patient unresponsiveness. There were no spontaneous heart tones or respirations noted and the patient was not responsive to stimuli. The patient was pronounced
at 04:19 on 11/25/2024. The cause of was end-stage COPD.
Discharge Plan
-
Patient Disposition:
Date/Time
Date/Time: 11/25/24 04:19
Discharge Date and Time
Discharge Date/Time: 11/25/24 04:19
Print Language: KHMER
== END 2024-11-25 04:19 | disposition expired | DRG 190 ==
LOC: 2 NORTH 15:31
PROVIDERS: ADMITTING PHYSICIAN Internal Medicine
DX: J44.9 Chronic obstructive pulmonary disease, unspecified (principal); I21.3 ST elevation (STEMI) myocardial infarction of unspecified site; I50.33 Acute on chronic diastolic (congestive) heart failure; J96.92 Respiratory failure, unspecified with hypercapnia; E44.0 Moderate protein-calorie malnutrition; N17.9 Acute kidney failure, unspecified; Z68.1 Body mass index [BMI] 19.9 or less, adult; E03.9 Hypothyroidism, unspecified; Z99.81 Dependence on supplemental oxygen; I25.10 Atherosclerotic heart disease of native coronary artery without angina pectoris; Z95.5 Presence of coronary angioplasty implant and graft; I35.0 Nonrheumatic aortic (valve) stenosis; L40.9 Psoriasis, unspecified; J10.1 Influenza due to other identified influenza virus with other respiratory manifestations; Z66 Do not resuscitate; I11.0 Hypertensive heart disease with heart failure; D69.6 Thrombocytopenia, unspecified